=== PATIENT | female | born 1955 | race Caucasian/White ===

== ENCOUNTER 2019-04-22 18:47 | Observation (INO) | payer BC, SELFPAY ==
--- NOTE | ~2019-04-22 | CT_ITS ---
EXAMINATION: CT abdomen pelvis wo con DATE: 04/22/2019 19:54 INDICATION: Abdomen pain TECHNIQUE: Computed tomography (CT) of the abdomen and pelvis was performed without intravenous contr ast. The dose-length product was 523.43 mGy-cm. Automated exposure control and iterative reconstructi on technique were employed. COMPARISON: None. FINDINGS: Lung bases are unremarkable. Heart size normal. No significant pleural or pericardial effus ion. There is a 5 mm right UVJ stone with mild-moderate hydroureteronephrosis. There are small 2 mm n onobstructing right renal stones. There is a 3-4 mm nonobstructing left renal stone. There is a hypod ense 2 cm exophytic left renal mass, likely a cyst. There are gallstones. No biliary dilatation. The liver, spleen, pancreas, adrenal glands are unremark able. Nonobstructive bowel gas pattern. No abnormal pelvic masses or fluid collections. No evidence f or diverticulitis. There is grade 1-2 spondylolisthesis at L5-S1 secondary to facet hypertrophy. Ther e is disc narrowing at this level. There is a hemangioma at T12. IMPRESSION: 1. 5 mm partially obstructing right UVJ stone with mild-moderate hydroureteronephrosis. 2: Nonobstructing bilateral nephrolithiasis. 3: Cholelithiasis. Reviewed, dictated and finalized at location A. IMPRESSION: 1. 5 mm partially obstructing right UVJ stone with mild-moderate hydroureterone phrosis. 2: Nonobstructing bilateral nephrolithiasis. 3: Cholelithiasis.
--- NOTE | ~2019-04-22 | XR_ITS ---
Pain management procedure TECHNIQUE: Fluoroscopy used during ureteral stone extraction performed by [Ant Wan MD ] on 04/23/2019. Fluoroscopy time is 10.3 seconds with 4 fluoroscopic images captured. ] FINDINGS: Correlate with procedure note. IMPRESSION: Fluoroscopy used during ureteral stone extraction. Correlate with procedure note. Reviewed, dictated and finalized at location A. IMPRESSION: Fluoroscopy used during ureteral stone extraction. Correlate with p cecil note.
--- NOTE | 2019-04-22 18:55 | ED.ABDPAIN ---
HPI - Abdominal Pain General Chief Complaint: Urogenital-Female Stated Complaint: Abd Pain Time Seen by Provider: 04/22/19 18:50 Source: patient Mode of arrival: ambulatory Limitations: no limitations History of Present Illness HPI narrative: A 63 y/o female presents to the ED with c/o diffuse ABD pain. Pt states that the ABD pain started 2 days ago and has been constant since. She notes that the ABD pain is aggravated after she eats. Pt denies fever, N/V/D, and dysuria. She took Hydrocodone for the ABD pain with no relief. Pt has no other complaints at this time. MD elicited complaint: abdominal pain (Diffuse) Onset (ago): day(s) (2) Pain Consistency: constant Location: diffuse Exacerbating factors: eating Relieving factors: nothing Associated symptoms: denies other symptoms Treatments prior to arrival: other (Hydrocodone) Related Data Allergies Allergy/AdvReac Type Severity Reaction Status Date / Time aspirin Allergy Unknown Verified 08/21/10 15:26 carisoprodol Allergy Unknown Verified 08/21/10 15:26 levofloxacin Allergy Unknown Hallucinati Verified 10/22/17 08:48 ons Penicillins Allergy Unknown Verified 04/09/11 14:20 salicylates Allergy Unknown Verified 04/22/19 19:10 Review of Systems Review of Systems: All systems reviewed & are unremarkable except as noted in HPI and below Constitutional: Constitutional: Denies fever(s) Gastrointestinal: Gastrointestinal: Reports abdominal pain (Diffuse), Denies diarrhea, Denies nausea and Denies vomiting Genitourinary: Genitourinary: Denies dysuria [facility] Past Medical History Medical History (Updated 04/22/19 @ 21:15 by Diogo Hammond DO) Agoraphobia Bronchitis Chronic back pain DDD (degenerative disc disease) Depression HTN (hypertension) IBS (irritable bowel syndrome) Pleurisy Surgical History Surgical History (Updated 04/22/19 @ 18:57 by Geovanna Edwards) History of hysterectomy Family History Family History Mother Hypertension Carcinoma of colon Father Hypertension Carcinoma of colon Family history of diabetes mellitus in first degree relative Sibling Family history of malignant neoplasm of brain Other Family history of malignant neoplasm of male breast Social History Social History Smoking status: Never smoker Alcohol intake: never Gender identity (if verbalized by the patient): Female Exam Narrative: Exam Narrative: APPEARANCE: No acute distress, nontoxic, resting in bed HEENT: Normocephalic, atraumatic, OMM RESPIRATORY: No respiratory distress, clear to auscultation bilaterally with no rhonchi wheezing or rales CARDIOVASCULAR: RRR s murmur ABDOMINAL: Soft, nondistended, diffusely tender to palpation, no rebound or guarding MUSCULOSKELETAl: Moves all extremities. No clubbing, cyanosis or edema. NEURO: Awake and alert. Following commands, speech normal, no focal deficits SKIN:: Warm, dry. Normal Color PSYCHIATRIC: Normal affect/mood Course Course Emergency Course: Discussed with patient and family results of workup and diagnosis. Discussed need for admission. Patient and family understand and agree to current treatment plan. Patient states she does have a history of renal insufficiency is followed by Dr. bates go Consultations Consultation #1: Discussed case with urologist, Dr. Wan. They advise the patient be started on Rocephin and be admitted to the hospital. Date: 04/22/19 Time: 20:40 MDM - Abdominal Pain Lab Data Result diagrams: 04/22/19 19:26 04/22/19 19:26 Labs: Lab Results 04/22/19 04/22/19 04/22/19 Range/Units 19:26 19:26 19:26 WBC 9.9 (4.5-10.0) K/mm3 RBC 4.36 (4.2-5.4) M/mm3 Hgb 11.9 L (12.0-15.0) g/dL Hct 37.1 (37.0-47.0) % MCV 85.1 (80-100) fl MCH 27.3 (26-34) pg MCHC 32.1 (32-36) g/dl RDW 13.4 (11.5-14.5) % Plt Count 321 (15
[2019-04-22 19:35] LABS: Basophils Absolute Auto 0.1 K/mm3 (0.0-0.1); Basophils Percent Auto 0.5 % (0.2-1.2); Eosinophils Absolute Auto 0.3 K/mm3 (0-0.3); Eosinophils Percent Auto 2.6 % (0-4.4); Hematocrit 37.1 % (37.0-47.0); Hemoglobin 11.9 g/dL (12.0-15.0); Immature Granulocyte Absolute 0.03 K/mm3 (0.00-0.031); Immature Granulocyte Percent A 0.3 % (0-0.5); Lymphocytes Absolute Auto 2.55 K/mm3 (0.9-3.2); Lymphocytes Percent Auto 25.8 % (18.3-44.2); Mean Corpuscular HGB Conc 32.1 g/dl (32-36); Mean Corpuscular Hemoglobin 27.3 pg (26-34); Mean Corpuscular Volume 85.1 fl (80-100); Mean Platelet Volume 9.6 fl (7.4-10.4); Monocytes Absolute Auto 0.8 K/mm3 (0.1-0.6); Monocytes Percent Auto 7.6 % (2.6-8.5); Neutrophils Absolute Auto 6.3 K/mm3 (1.3-6.7); Neutrophils Percent Auto 63.2 % (45.5-73.1); Platelet Count Result 321 k/mm3 (150-375); Red Blood Count 4.36 M/mm3 (4.2-5.4); Red Cell Distribution Width 13.4 % (11.5-14.5); White Blood Count 9.9 K/mm3 (4.5-10.0)
[2019-04-22] MEDS: LACTATED RINGERS 1,000 ML 999 ML IV CONT (19:37)
[2019-04-22 19:40] LABS: Add Urine Microscopic? YES; Appearance Urine Cloudy (Clear); Bacteria Urine Trace /hpf; Bilirubin Urine Negative (Negative); Blood Urine 3+ (Negative); Color Urine Yellow (Yellow); Glucose Urine UA Negative (Negative); Ketones Urine Negative (Negative); Leukocyte Esterase Ur 1+ LEU/UL (Negative); Mucus Urine Few /lpf; Nitrate Urine Negative (Negative); Protein Urine Negative (Negative); RBC Urine >75 /hpf (0-2); Specific Grav Ur 1.017 (1.001-1.035); Squamous Epithelial Cell Urine Many /hpf (Few); Uric Acid Crystals Urine Present /hpf; Urobilinogen Urine Negative mg/dL (<2.0); WBC Urine 31-50 /hpf
[2019-04-22 19:44] LABS: INR 0.9; Partial Thromboplastin Time 29.6 SECONDS (22.3-36.8); Prothrombin Time 12.3 Seconds (11.1-14.7)
[2019-04-22 19:45] LABS: Alanine Aminotransferase 16 U/L (4-35); Alkaline Phosphatase 111 U/L (38-126); Aspartate Amino Transferase 25 U/L (14-36); Bilirubin,Total 0.6 mg/dL (0.2-1.3); Blood Urea Nitrogen 13 mg/dL (7-17); Calcium 9.3 mg/dL (8.4-10.2); Carbon Dioxide 27 mmol/L (22-30); Chloride 105 mmol/L (98-107); Estimated Glomerular Filt Rate 29; Glucose 96 mg/dL (65-105); Lipase 87 U/L (23-300); Potassium 4.1 mmol/L (3.4-5.0); Sodium 139 mmol/L (137-145)
[2019-04-22 21:36] VITALS: BP 125/65; PULSE 78; RESP 15; O2SAT 100
--- NOTE | 2019-04-22 21:38 | ADMGEN ---
This patient, Eladia Mock, was admitted to 3 [facility] Surg Room 324-01. Patient/family oriented to hospital policies and general routines including ID bracelet, bed and alarms, visiting hours, pain management, procedures, bathroom and other care routines, personal items, smoking policy, room service/diet, and visiting hours. Valuables list has been completed. Information on how to activate the Rapid Response Team has been discussed. Patient/Family are encouraged to report perceived risks to care and to ask questions if they do not understand what they are told or what they should do.
[2019-04-22 21:40] VITALS: BP 140/59; PULSE 74; RESP 18; TEMP 36.4; O2SAT 98; BMI 27.0
[2019-04-22] MEDS: SODIUM CHLORIDE 0.9% IV 1,000 ML 125 ML IV CONT (21:49)
[2019-04-23] VITALS (11 sets, daily range): BP systolic 116–153; BP diastolic 57–88; PULSE 59–82; RESP 10–17; TEMP 36.2–36.6; O2SAT 97–100
[2019-04-23] MEDS: MORPHINE SULFATE 4 MG/ML INJ IV PUSH ×2 (04:43→08:18)
[2019-04-23] MEDS: SODIUM CHLORIDE 0.9% IV 1,000 ML 125 ML IV CONT (05:50)
[2019-04-23 06:41] LABS: Basophils Percent Auto 0.4 % (0.2-1.2); Eosinophils Absolute Auto 0.3 K/mm3 (0-0.3); Eosinophils Percent Auto 3.9 % (0-4.4); Hematocrit 34.2 % (37.0-47.0); Hemoglobin 11.1 g/dL (12.0-15.0); Immature Granulocyte Absolute 0.02 K/mm3 (0.00-0.031); Immature Granulocyte Percent A 0.3 % (0-0.5); Lymphocytes Absolute Auto 2.48 K/mm3 (0.9-3.2); Mean Corpuscular HGB Conc 32.5 g/dl (32-36); Mean Corpuscular Hemoglobin 27.5 pg (26-34); Mean Corpuscular Volume 84.9 fl (80-100); Mean Platelet Volume 9.6 fl (7.4-10.4); Monocytes Absolute Auto 0.5 K/mm3 (0.1-0.6); Monocytes Percent Auto 7.2 % (2.6-8.5); Neutrophils Absolute Auto 4.2 K/mm3 (1.3-6.7); Neutrophils Percent Auto 55.2 % (45.5-73.1); Platelet Count Result 293 k/mm3 (150-375); Red Blood Count 4.03 M/mm3 (4.2-5.4); Red Cell Distribution Width 13.2 % (11.5-14.5); White Blood Count 7.5 K/mm3 (4.5-10.0)
[2019-04-23 07:00] LABS: Blood Urea Nitrogen 11 mg/dL (7-17); Calcium 8.7 mg/dL (8.4-10.2); Carbon Dioxide 26 mmol/L (22-30); Chloride 108 mmol/L (98-107); Estimated CRCL calculation 46 ml/min; Estimated Glomerular Filt Rate 50; Glucose 93 mg/dL (65-105); Potassium 3.6 mmol/L (3.4-5.0); Sodium 138 mmol/L (137-145)
--- NOTE | 2019-04-23 07:17 | PM.IMHP ---
H&P: HPI History of Present Illness Chief complaint: RIGHT KIDNEY STONE,HYDRONEPHROSIS,UTI,RENAL Narrative: Eladia Mock is a 63 year old female without history of prior urolithiasis or other urological issues. Presents to ER with 3-day history of lower abdominal discomfort without n/v, fever//chills or gross hematuria. Review of Systems Constitutional: Constitutional: Denies chills, Denies fatigue, Denies fever(s) and Denies headache(s) Eyes: Eyes: Denies blurry vision ENT: Denies vertigo, Denies dizziness, Denies headache(s) and Denies sore throat Cardiovascular: Cardiovascular: Denies chest pain, Denies syncope, Denies lightheadedness, Denies palpitations, Denies dyspnea and Denies dyspnea on exertion Respiratory: Respiratory: Denies hemoptysis, Denies dyspnea and Denies dyspnea on exertion Gastrointestinal: Gastrointestinal: Denies melena, Denies bloating, Denies hematochezia, Denies change in bowel habits, Denies change in stool character, Denies constipation, Denies diarrhea and Denies vomiting Genitourinary: Genitourinary: Denies hematuria, Denies urinary frequency, Denies dysuria, Denies urinary hesitancy and Denies urinary urgency Integumentary/Breasts: Skin/Breast: Denies pruritus, Denies lesions and Denies rash Neurologic: Denies confusion, Denies vertigo, Denies dizziness, Denies syncope and Denies headache(s) Psychiatric: Psychiatric: Denies anxiety, Denies change in appetite and Denies confusion Endocrine: Endocrine: Denies fatigue and Denies palpitations PMFSH Past Medical History Medical History Agoraphobia Bronchitis Chronic back pain DDD (degenerative disc disease) Depression HTN (hypertension) IBS (irritable bowel syndrome) Pleurisy Surgical History Surgical History History of hysterectomy Family History Family History Mother Hypertension Carcinoma of colon Father Hypertension Carcinoma of colon Family history of diabetes mellitus in first degree relative Sibling Family history of malignant neoplasm of brain Other Family history of malignant neoplasm of male breast Social History Social History Smoking status: Never smoker Alcohol intake: never Substance use: never Substance use type: does not use Gender identity (if verbalized by the patient): Female Spiritual care concerns: Yes (denominational) Agree to blood products: Yes Meds Home Medications and Allergies Home Medications Medication Instructions Recorded Confirmed Type amlodipine 5 mg tablet 5 mg PO DAILY #30 tablet 01/11/19 04/22/19 Rx carvedilol 25 mg tablet 25 mg PO Q12H #60 tablet 01/11/19 04/22/19 Rx losartan 50 mg tablet 50 mg PO DAILY #30 tablet 01/11/19 04/22/19 Rx naproxen 500 mg tablet 500 mg PO BID #60 tablet 01/11/19 04/22/19 Rx cyclobenzaprine 10 mg tablet 10 mg PO TID #90 tablet 04/15/19 04/22/19 Rx acetaminophen [Tylenol] 325 mg PO Q4-6H PRN 04/22/19 04/23/19 History gabapentin 300 mg BID 04/22/19 04/22/19 History hydrocodone-acetaminophen 1 tablet PO Q4H PRN 04/22/19 04/22/19 History hydroxyzine HCl 25 mg PO TID 04/22/19 04/22/19 History Allergies Allergy/AdvReac Type Severity Reaction Status Date / Time aspirin Allergy Unknown Unknown Verified 04/22/19 21:24 carisoprodol Allergy Unknown Unknown Verified 04/22/19 21:24 levofloxacin Allergy Unknown Hallucinati Verified 10/22/17 08:48 ons Penicillins Allergy Unknown Unknown Verified 04/22/19 21:24 salicylates Allergy Unknown Unknown Verified 04/22/19 21:24 Vital Signs Vital Signs - 24 hr 04/22/19 21:36 04/22/19 21:40 Temperature 97.6 F Pulse Rate 78 74 Respiratory Rate 15 18 Blood Pressure 125/65 140/59 L Pulse Oximetry 100 98 Exam Const: General: healthy appearing, comfortable, no acute di
--- NOTE | 2019-04-23 11:50 | PC.NURSE ---
to OR per stretcher. iv saline locked.
[2019-04-23] MEDS: LACTATED RINGERS 1,000 ML 30 ML IV CONT (11:55)
--- NOTE | 2019-04-23 12:35 | WPDANESEPPF ---
Anes - Initial Pre Proc Eval Procedure: Operation Date: 04/23/19 15:45 Proposed Procedures p CYSTOSCOPY,RIGHT URETEROSCOPY,STONE EXTRACTION - Ant Wan MD Date/Time: 04/23/19 12:35 Surgeon: Vee Davis DO Pre Op Diagnosis: RIGHT KIDNEY STONE,HYDRONEPHROSIS,UTI,RENAL Patient Data Age: 63 Gender: F Height: 5 ft 7 in Weight: 78.2 kg Last Vital Signs Temp 36.5 C 04/23/19 12:00 Pulse 70 04/23/19 12:00 Resp 16 04/23/19 12:00 BP 150/59 H 04/23/19 12:00 Pulse Ox 99 04/23/19 12:00 Allergies Allergy/AdvReac Type Severity Reaction Status Date / Time aspirin Allergy Unknown Unknown Verified 04/22/19 21:24 carisoprodol Allergy Unknown Unknown Verified 04/22/19 21:24 levofloxacin Allergy Unknown Hallucinati Verified 10/22/17 08:48 ons Penicillins Allergy Unknown Unknown Verified 04/22/19 21:24 salicylates Allergy Unknown Unknown Verified 04/22/19 21:24 Home Medications Medication Instructions Recorded Confirmed Type amlodipine 5 mg tablet 5 mg PO DAILY #30 tablet 01/11/19 04/22/19 Rx carvedilol 25 mg tablet 25 mg PO Q12H #60 tablet 01/11/19 04/22/19 Rx losartan 50 mg tablet 50 mg PO DAILY #30 tablet 01/11/19 04/22/19 Rx naproxen 500 mg tablet 500 mg PO BID #60 tablet 01/11/19 04/22/19 Rx cyclobenzaprine 10 mg tablet 10 mg PO TID #90 tablet 04/15/19 04/22/19 Rx acetaminophen [Tylenol] 325 mg PO Q4-6H PRN 04/22/19 04/23/19 History gabapentin 300 mg BID 04/22/19 04/22/19 History hydrocodone-acetaminophen 1 tablet PO Q4H PRN 04/22/19 04/22/19 History hydroxyzine HCl 25 mg PO TID 04/22/19 04/22/19 History Laboratory Tests 04/22/19 04/22/19 04/22/19 19:26 19:26 19:26 WBC 9.9 K/mm3 K/mm3 (4.5-10.0) RBC 4.36 M/mm3 M/mm3 (4.2-5.4) Hgb 11.9 g/dL L g/dL (12.0-15.0) Hct 37.1 % % (37.0-47.0) MCV 85.1 fl fl (80-100) MCH 27.3 pg pg (26-34) MCHC 32.1 g/dl g/dl (32-36) RDW 13.4 % % (11.5-14.5) Plt Count 321 k/mm3 k/mm3 (150-375) MPV 9.6 fl fl (7.4-10.4) Immature Gran % (Auto) 0.3 % % (0-0.5) Neut % (Auto) 63.2 % % (45.5-73.1) Lymph % (Auto) 25.8 % % (18.3-44.2) [place] % (Auto) 7.6 % % (2.6-8.5) Eos % (Auto) 2.6 % % (0-4.4) Baso % (Auto) 0.5 % % (0.2-1.2) Lymph # (Auto) 2.55 K/mm3 K/mm3 (0.9-3.2) [place] # (Auto) 0.8 K/mm3 H K/mm3 (0.1-0.6) Eos # (Auto) 0.3 K/mm3 K/mm3 (0-0.3) Baso # (Auto) 0.1 K/mm3 K/mm3 (0.0-0.1) Abs Immat Gran (auto) 0.03 K/mm3 K/mm3 (0.00-0.031) Absolute Neuts (auto) 6.3 K/mm3 K/mm3 (1.3-6.7) Absolute Nucleated RBC 0.0 K/mm3 K/mm3 (0.0-0.012) Nucleated RBC % 0.0 % % (0.0-0.2) PT 12.3 Seconds Seconds (11.1-14.7) INR 0.9 APTT 29.6 SECONDS SECONDS (22.3-36.8) Sodium 139 mmol/L mmol/L (137-145) Potassium 4.1 mmol/L mmol/L (3.4-5.0) Chloride 105 mmol/L mmol/L (98-107) Carbon Dioxide 27 mmol/L mmol/L (22-30) BUN 13 mg/dL mg/dL (7-17) Creatinine 1.80 mg/dL H mg/dL (0.7-1.0) Estim Creat Clear Calc Not Reportable Estimated GFR 29 L (59 - ) Glucose 96 mg/dL mg/dL (65-105) Calcium 9.3 mg/dL mg/dL (8.4-10.2) Total Bilirubin 0.6 mg/dL mg/dL (0.2-1.3) AST 25 U/L U/L (14-36) ALT 16 U/L U/L (4-35) Alkaline Phosphatase 111 U/L U/L (38-126) Total Protein 7.0 g/dL g/dL (6.3-8.2) Albumin 4.0 g/dL g/dL (3.5-5.1) Lipase 87 U/L U/L (23-300) Urine Color Urine Appearance Urine pH Ur Specific [place] Urine Protein Urine Glucose (UA) Urine Ketones Ur Blood (Man) Urine Nitrate
[2019-04-23] MEDS: KETOROLAC 30 MG/ML VIAL (*BKC) IV PUSH (13:03)
--- NOTE | 2019-04-23 13:04 | PM.PROC ---
Procedure Note - Detailed Date of procedure: 04/23/19 Pre-op diagnosis: RIGHT KIDNEY STONE,HYDRONEPHROSIS,UTI,RENAL Post-op diagnosis: same Procedure performed: 1. Cystoscopy, right ureteroscopy with stone extraction. Description of procedure: The patient was brought to the operative suite where she is prepped and draped in a routine sterile fashion while in the dorsal lithotomy position after the uneventful induction of a general LMA anesthetic. A 19F rigid cystoscope was placed in the bladder. The patient had no evidence of urethral stricture or bladder neck contracture. The bladder mucosa was endoscopically normal without hyperemia or neoplasm. There was a single, orthotopic ureteral orifice bilaterally. A 0.035 glidewire was advanced into the right renal pelvis under fluoroscopy. The distal ureter was dilated with an 8F/10F ureteral dilator. Ureteroscopy was undertaken with a short, tapered, semi-rigid ureteroscope and the stone was extracted with ease using a 1.9F Escape disposable stone basket. Due to the ease of this manipulation I opted not to place a ureteral stent. The patient's bladder was emptied and was taken to the recovery room having tolerated this procedure well. Anesthesia: GLMA Surgeon: Ant Wan MD Estimated blood loss (mL): 0 Drains: No Packing: No Pathology: yes (Right ureteral stone) Complications: No immediate complications Condition: stable Disposition: PACU
--- NOTE | 2019-04-23 13:11 | PM.DS ---
DS: Diagnosis Admitting Diagnosis Admitting Diagnosis: Calculus of ureter DS: Summary Time Spent with Patient Time attestation: Total time spent providing and/or coordinating discharge services: 20min. Discharge diagnosis: Right ureteral stone Hospital coure: Patient was admitted to the ER on a Saturday evening with a 3 day history of right lower quadrant and pelvic discomfort. Axial imaging demonstrated a 5 mm obstructing ureteral calculus. She was admitted overnight for hydration and analgesics. Following morning she continued to have discomfort prompting decision for endoscopic intervention. Ureteroscopy revealed a 5 mm distal ureteral stone which was extracted with ease. I opted not to leave a ureteral stent. Following the procedure she was comfortable and tolerating a diet. She will be discharged with plans to follow-up in 2-3 weeks. Exam Const: General: no acute distress GI: Inspection: non-distended GI Palp: No abdominal tenderness and No Guarding due to palpation present (GI) Auscultation: normal bowel sounds DS: Data Data Completed and Pending Pending studies at discharge: Pending at discharge 04/23/19 13:00 Surgical [PTH] Routine Labs on day of discharge: Labs from last 24 hours 04/23/19 04/23/19 04/22/19 06:15 06:15 19:28 WBC 7.5 RBC 4.03 L Hgb 11.1 L Hct 34.2 L MCV 84.9 MCH 27.5 MCHC 32.5 RDW 13.2 Plt Count 293 MPV 9.6 Immature Gran % (Auto) 0.3 Neut % (Auto) 55.2 Lymph % (Auto) 33.0 [place] % (Auto) 7.2 Eos % (Auto) 3.9 Baso % (Auto) 0.4 Lymph # (Auto) 2.48 [place] # (Auto) 0.5 Eos # (Auto) 0.3 Baso # (Auto) 0.0 Abs Immat Gran (auto) 0.02 Absolute Neuts (auto) 4.2 Absolute Nucleated RBC 0.0 Nucleated RBC % 0.0 PT INR APTT Sodium 138 Potassium 3.6 Chloride 108 H Carbon Dioxide 26 BUN 11 Creatinine 1.10 H Estim Creat Clear Calc 46 Estimated GFR 50 L Glucose 93 Calcium 8.7 Total Bilirubin AST ALT Alkaline Phosphatase Total Protein Albumin Lipase Urine Color Yellow Urine Appearance Cloudy H Urine pH 6.0 Ur Specific [place] 1.017 Urine Protein Negative Urine Glucose (UA) Negative Urine Ketones Negative Ur Blood (Man) 3+ H Urine Nitrate Negative Urine Bilirubin Negative Urine Urobilinogen Negative Leukocyte Esterase Rfl 1+ H Urine RBC >75 H Urine WBC 31-50 H Ur Squamous Epith Cells Many H Uric Acid Crystals Present H Urine Bacteria Trace Urine Mucus Few H 04/22/19 04/22/19 04/22/19 19:26 19:26 19:26 WBC 9.9 RBC 4.36 Hgb 11.9 L Hct 37.1 MCV 85.1 MCH 27.3 MCHC 32.1 RDW 13.4 Plt Count 321 MPV 9.6 Immature Gran % (Auto) 0.3 Neut % (Auto) 63.2 Lymph % (Auto) 25.8 [place] % (Auto) 7.6 Eos % (Auto) 2.6 Baso % (Auto) 0.5 Lymph # (Auto) 2.55 [place] # (Auto) 0.8 H Eos # (Auto) 0.3 Baso # (Auto) 0.1 Abs Immat Gran (auto) 0.03 Absolute Neuts (auto) 6.3 Absolute Nucleated RBC 0.0 Nucleated RBC % 0.0 PT 12.3 INR 0.9 APTT 29.6 Sodium 139 Potassium 4.1 Chloride 105 Carbon Dioxide 27 BUN 13 Creatinine 1.80 H Estim Creat Clear Calc Not Reportable Estimated GFR 29 L Glucose 96 Calcium 9.3 Total Bilirubin 0.6 AST 25 ALT 16 Alkaline Phosphatase 111 Total Protein 7.0 Albumin 4.0 Lipase 87 Urine Color Urine Appearance Urine pH Ur Specific [place] Urine Protein Urine Glucose (UA) Urine Ketones Ur Blood (Man) Urine Nitrate Urine Bilirubin Urine Urobilinogen Leukocyte Esterase Rfl Urine RBC Urine WBC Ur Squamous Epith Cells Uric Acid Crystals Urine Bacteria Urine Mucus Discharge Plan Discharge Attending physician on discharge: Ant Wan Consulting providers: Jimmy Wan
--- NOTE | 2019-04-23 15:22 | PC.NURSE ---
patient returned to room from OR.
== END 2019-04-23 16:54 | disposition home or self-care (01) ==
LOC: ANHED 20:44 → ANH3MEDSUR 21:15
PROVIDERS: Admitting Provider Urology; Emergency Provider Emergency Medicine; PCP Family Medicine; Visit Provider Urology
PROC: (CPT 52352; principal; 2019-04-23 15:45)
DX: N13.6 Pyonephrosis (principal); I10 Essential (primary) hypertension; N28.9 Disorder of kidney and ureter, unspecified; Z79.899 Other long term (current) drug therapy; Z88.0 Allergy status to penicillin; Z88.3 Allergy status to other anti-infective agents; Z88.8 Allergy status to other drugs, medicaments and biological substances
CPT/HCPCS: 52352; 36415; 74176; 80048; 80053; 81001; 82365; 83690; 85025; 85610; 85730; 87086; 87088; 88300; 96361; 96365; 96375; 96376; 99285; A9270; C1769; G0378; J0696; J1100; J1885; J2270; J2405; J2704; J3010; J7030; J7120

== ENCOUNTER 2019-08-21 11:06 | Outpatient (CLI) | payer BC, SELFPAY ==
--- NOTE | ~2019-08-21 | XR_ITS ---
EXAMINATION: XR abdomen/kub 1V DATE: 08/21/2019 11:26 INDICATION: Calculus of kidney. TECHNIQUE: A supine view of the abdomen on 2 radiographs was obtained. COMPARISON: CT abdomen and pelvis 08/21/2019 FINDINGS: There are no dilated loops of bowel. There are gallstones in the gallbladder. There is a 4 mm stone in right kidney lower pole. There are phleboliths in the pelvis. IMPRESSION: 1. 4 mm right kidney stone. Reviewed, dictated and finalized at location A. IMPRESSION: 1. 4 mm right kidney stone.
--- NOTE | ~2019-08-21 | CT_ITS ---
EXAMINATION: CT abdomen pelvis wo con DATE: 08/21/2019 11:18 INDICATION: Left flank pain. TECHNIQUE: Computed tomography (CT) of the abdomen and pelvis was performed without intravenous contr ast. Automated exposure control and iterative reconstruction technique were employed. The dose-length product was 254.89 mGy-cm. COMPARISON: CT abdomen and pelvis 04/22/2019, ultrasound kidneys 10/24/2017 FINDINGS: The visualized portions of the lung bases demonstrate mild atelectasis. No pleural effusion . The heart size is normal. No pericardial effusion. The liver and spleen are normal. There are galls tones in the gallbladder, which is normal in size. The pancreas and adrenal glands are normal. There are 5 stones in right kidney measuring up to 3 mm. There is a 3 mm stone in distal right ureter. Ther e is an 8 mm cyst in left kidney. There is a 2.0 cm mass in left kidney measuring soft tissue attenua tion. There is mild left hydronephrosis and proximal hydroureter. There is a 4 mm stone in proximal l eft ureter. There are no dilated loops of bowel. There is diverticulosis of the colon without evidenc e of diverticulitis. The appendix is not visualized. There are no pathologically enlarged lymph nodes . There is trace pelvic ascites. There is severe lower lumbar spondylosis. There is a hemangioma in T 12. IMPRESSION: 1. 4 mm stone in proximal left ureter with mild left hydronephrosis and proximal hydroureter. 2. 3 mm stone in distal right ureter. No right-sided hydronephrosis. 3. Nonobstructing right kidney stones. 4. 2.0 cm left kidney mass measuring soft tissue attenuation, stable from 04/22/2019 and not visualize d on 10/24/2017. This finding may be a hemorrhagic cyst or less likely a solid neoplasm. Abdomen CT wi thout and with contrast is recommended. Reviewed, dictated and finalized at location A. IMPRESSION: 1. 4 mm stone in proximal left ureter with mild left hydronephrosis and proxima l hydroureter. 2. 3 mm stone in distal right ureter. No right-sided hydronephrosis. 3. Nonobstructing right kidney stones. 4. 2.0 cm left kidney mass measuring soft tissue attenuation, stable from 2019 and not visualized on 10/24/2017. This finding may be a hemorrhagic cyst or less likely a solid neoplasm. Abdomen CT without and with contrast is recommen ded.
== END 2019-08-21 11:07 | disposition home or self-care (01) ==
PROVIDERS: PCP Family Medicine; Visit Provider Nurse Practitioner Family
DX: N20.2 Calculus of kidney with calculus of ureter (principal)
CPT/HCPCS: 74018; 74176

== ENCOUNTER 2019-09-01 15:21 | Outpatient (CLI) | payer BC, SELFPAY ==
--- NOTE | ~2019-09-01 | XR_ITS ---
XR abdomen/kub 1V DATE: 09/01/2019 15:43 INDICATION: Left renal mass TECHNIQUE: AP projection, 2 views COMPARISON: 08/21/2019 KUB 08/21/[address] abdomen pelvis FINDINGS: There are 2 approximately 12 mm calcified gallstones. There is a possible several millimeter faintly calcified ureteral calculus at the L5 level, superimpo sing the L5 transverse process. Consider correlation with noncontrast CT abdomen pelvis to confirm. The psoas shadows are intact. No visceromegaly is evident. The bowel gas pattern is unremarkable, wit hout evidence of obstruction. IMPRESSION: Possible faintly calcified 7 mm left ureteral calculus at L5 level Cholelithiasis Reviewed, dictated and finalized at Location A. Reviewed, dictated and finalized at location B.
--- NOTE | ~2019-09-01 | CT_ITS ---
EXAMINATION: CT abdomen pelvis wo/w con DATE: 09/01/2019 16:02 INDICATION: Left renal mass TECHNIQUE: Computed tomography (CT) of the abdomen and pelvis was performed without and subsequently with 100 cc Omnipaque 350 intravenous contrast. Automated exposure control and iterative reconstructi on technique were employed. Exam dose: 731.55 mGy-cm total exam DLP. COMPARISON: 09/01/2019 KUB 08/21/2019 CT abdomen pelvis 04/22/2019 CT abdomen pelvis 10/24/2017 ultrasound of the kidneys FINDINGS: Normal heart size. No pericardial or pleural effusion. There is mild discoid atelectasis or scarring in the medial segment of the middle lobe. There are 2 approximately 12 mm stones in the dependent aspect of the gallbladder. No gallbladder wal l thickening or pericholecystic fluid or stranding. No hepatic space-occupying mass lesion or bile duct dilatation. No pancreatic mass lesion, calcificat ion or pancreatic duct dilatation. Normal splenic size. There are 5 nonobstructing right renal stones, measuring up to slightly greater than 3 mm approximate maximal dimension. A 4 mm calculus is confirmed in the left ureter at the L5 level, as suggested on the 09/01/2019 KUB. T here is proximal mild left hydroureteronephrosis. No other left renal, left or right ureteral calculus or urinary bladder calculus is evident. There are several left renal cysts including an exophytic approximately 1.8 cm cyst and several 10 mm or smaller left renal cyst. There is mild atherosclerotic calcification of the abdominal aorta. No a bdominal aortic aneurysm or dissection is evident. No intraperitoneal or retroperitoneal or pelvic ma ss lesion or adenopathy or ascites. Status post hysterectomy. The urinary bladder is unremarkable. Normal appendix. No bowel obstruction or intraperitoneal free air. There is grade 2 anterolisthesis at L5-S1 with evidence of healed bilateral L5 pars interarticularis defects. There is moderate degenerative disc disease including vacuum phenomenon at L5-S1. Diffuse osteopenia. Hemangioma of T12. Degenerative spurring of the lower thoracic spine. IMPRESSION: 4 mm left ureteral calculus at L5 level with moderate proximal hydroureteronephrosis Nonobstructive right nephrolithiasis Left renal cysts including approximately 1.8 cm exophytic cyst Cholelithiasis Reviewed, dictated and finalized at [facility]. Reviewed, dictated and finalized at location B. IMPRESSION: 4 mm left ureteral calculus at L5 level with moderate proximal hyd roureteronephrosis Nonobstructive right nephrolithiasis Left renal cysts including approximately 1.8 cm exophytic cyst Cholelithiasis
[2019-09-01 15:51] LABS: Estimated Glomerular Filt Rate 42
== END 2019-09-01 15:22 | disposition home or self-care (01) ==
PROVIDERS: PCP Family Medicine; Visit Provider Nurse Practitioner Adult Health
DX: N28.1 Cyst of kidney, acquired (principal); K80.20 Calculus of gallbladder without cholecystitis without obstruction; N20.2 Calculus of kidney with calculus of ureter
CPT/HCPCS: 36415; 74018; 74178; Q9967

== ENCOUNTER 2019-09-03 00:45 | Outpatient (CLI) | payer BC, SELFPAY ==
[2019-09-03 20:09] LABS: SARS-CoV-2 RNA PCR Negative
== END 2019-09-03 00:46 | disposition home or self-care (01) ==
LOC: ANHCOVIDDT 00:45
PROVIDERS: PCP Family Medicine; Visit Provider Urology
DX: Z01.812 Encounter for preprocedural laboratory examination (principal); Z11.59 Encounter for screening for other viral diseases; I10 Essential (primary) hypertension
CPT/HCPCS: 87635; C9803; U0003

== ENCOUNTER 2019-09-04 02:02 | Day surgery (SDC) | payer BC, SELFPAY ==
[2019-09-02 16:25] VITALS: BMI 26.4
[2019-09-04] VITALS (8 sets, daily range): BP systolic 109–148; BP diastolic 57–80; PULSE 61–75; RESP 9–12; TEMP 36–36.6; O2SAT 94–100
--- NOTE | ~2019-09-04 | XR_ITS ---
EXAMINATION: XR abdomen/kub 1V DATE: 09/04/2019 07:27 INDICATION: Left ureteral stone. TECHNIQUE: A supine view of the abdomen on 2 radiographs was obtained. COMPARISON: CT abdomen and pelvis 09/01/2019 FINDINGS: There are no dilated loops of bowel. There are gallstones in the gallbladder. There are phl eboliths in the pelvis. There is a 4 mm stone in proximal left ureter overlying the left L5 transvers e process. There are 3 stones in right kidney measuring up to 4 mm. IMPRESSION: 1. 4 mm stone in proximal left ureter. 2. Right kidney stones. 3. Cholelithiasis. Reviewed, dictated and finalized at location A.
--- NOTE | 2019-09-04 06:15 | ECG_ITS ---
Measurements Intervals [place] Rate: 65 P: 51 NM: 185 QRS: -5 QRSD: 90 T: 13 QT: 381 QTc: 398 Interpretive Statements SINUS RHYTHM VOLTAGE CRITERIA FOR LVH BASELINE ARTIFACT- I, II, AVR, AVF BORDERLINE ECG Electronically Signed On 09-04-2019 8:24:33 CDT by Misael Torrez D.O.
--- NOTE | 2019-09-04 07:42 | WPDHPUPDATE1 ---
History and Physical Update Update Date/Time: 09/04/19 07:42 History and Physical has been reviewed, including an updated exam of the patient. There are NO changes in the patient's condition. Risks, benefits, and alternatives have been discussed and questions answered. Patient agrees to proceed with procedure.
[2019-09-04] MEDS: LACTATED RINGERS 1,000 ML 30 ML IV CONT ×2 (07:53→09:57)
[2019-09-04 08:15] LABS: Prothrombin Time 12.6 Seconds (11.1-14.7)
[2019-09-04 08:16] LABS: Partial Thromboplastin Time 29.7 SECONDS (22.3-36.8)
--- NOTE | 2019-09-04 08:30 | WPDANESEPPF ---
Anes - Initial Pre Proc Eval Procedure: Operation Date: 09/04/19 09:30 Proposed Procedures p Left Ureteral Extracorporeal Shock Wave Lithotripsy - Carl Parnell MD s Possible Cystoscopy, Possible Left Ureteroscopy, Possible Left Retrograde Pyelogram, Possible Left Stone Extraction, Possible Left Stent Placement - Carl Parnell MD s Possible Holmium Laser Procedure - Carl Parnell MD Date/Time: 09/04/19 08:30 Surgeon: Carl Parnell MD Pre Op Diagnosis: Left Ureteral Stone Patient Data Age: 63 Gender: F Height: 1.7 m Weight: 76.66 kg Last Vital Signs Temp 36.0 C L 09/04/19 08:03 Pulse 70 09/04/19 08:03 BP 141/74 H 09/04/19 08:03 Pulse Ox 100 09/04/19 08:03 Allergies Allergy/AdvReac Type Severity Reaction Status Date / Time aspirin Allergy Unknown ITCHING, Verified 09/02/19 16:29 GI UPSET levofloxacin Allergy Unknown Hallucinati Verified 09/02/19 16:29 ons Penicillins Allergy Unknown Unknown- Verified 09/02/19 16:29 CHILD salicylates Allergy Unknown GI UPSET Verified 09/02/19 16:29 carisoprodol AdvReac Unknown Gastrointestinal Verified 09/02/19 16:29 Upset Home Medications Medication Instructions Recorded Confirmed Type acetaminophen [Tylenol] 325 mg PO Q4-6H PRN 04/22/19 09/02/19 History gabapentin 300 mg BID 04/22/19 09/02/19 History amlodipine 5 mg tablet 5 mg PO DAILY #30 tablet 05/14/19 09/04/19 Rx carvedilol 25 mg tablet 25 mg PO Q12H #60 tablet 05/14/19 09/04/19 Rx naproxen 500 mg tablet 500 mg PO BID #60 tablet 05/14/19 09/02/19 Rx losartan 50 mg tablet 50 mg PO DAILY #30 tablet 06/15/19 09/02/19 Rx cyclobenzaprine 10 mg tablet 10 mg PO TID #90 tablet 07/17/19 09/02/19 Rx hydrocodone 5 mg-acetaminophen 325 1 tablet PO Q6-8H PRN #90 tablet 08/18/19 09/04/19 Rx mg tablet hydroxyzine HCl 25 mg tablet 25 mg PO TID #90 tablet 08/18/19 09/04/19 Rx tamsulosin 0.4 mg capsule 0.4 mg PO DAILY #20 cap 08/21/19 09/02/19 Rx Laboratory Tests 09/04/19 07:58 PT 12.6 Seconds Seconds (11.1-14.7) INR 1.0 APTT 29.7 SECONDS SECONDS (22.3-36.8) Patient hx anesthesia problems: none Family hx anesthesia problems: none [facility] Social History Social History Smoking status: Never smoker Alcohol intake: never Substance use: never Substance use type: does not use Gender identity (if verbalized by the patient): Female Spiritual care concerns: No Agree to blood products: Yes Anes - Eval Final PreProcedure Day of Procedure 09/04/19 08:30 Patient weight: overweight Heart: regular rate and rhythm Lungs: clear to auscultation and normal air movement Airway: Mallampati scale class II Neurological: alert and oriented Last oral intake: >/= 8 hours ASA classification: III Emergent: no Anesthetic plan: proceed Anesthesia type and monitoring: general LMA Informed Consent: The patient's anesthetic plan and its attendant risks and benefits were discussed with the patient/family/POA. Questions were solicited and answers provided to the satisfaction of the patient/family/POA.
--- NOTE | 2019-09-04 08:34 | SUR.PREOP ---
0800- DR. UP OK'ED ANCEF 2G FOR ANTIBOTIC CHOICE.
[2019-09-04] MEDS: ceFAZolin 2 GM/D5W 50 ML 2 GM/50 ML BAG IVPB (08:35)
[2019-09-04] MEDS: LIDOCAINE HCL 2% GEL UROJET 10 ML PKG MUCOUS MEM (09:13)
--- NOTE | 2019-09-04 09:59 | P.OP_ITS ---
Procedure Note - Detailed Date of procedure: 09/04/19 Pre-op diagnosis: Left Ureteral Stone Post-op diagnosis: same Procedure performed: Cystoscopy, left retrograde pyelogram, left ureteral stent placement 4.8 Barbadian contour, ESWL left ureteral calculus Description of procedure: patient was taken to the operative suite and correctly identified. Once general anesthesia was obtained we were unable to adequately localized the stone which was distal near the iliac crest area. At this point time we decided to place the patient a frog-leg position and prepped and draped in usual sterile fashion. Sixteen Barbadian flexible scope was inserted into the bladder. The left ureteral orifice was cannulated with a guidewire. It met some mild resistance at the iliac crest area. This was the location of the presumed stone on KUB preoperatively. We then placed a [place] and a slight pyelogram. We used this to give 1500 shocks to this area. At this point we decided to possibly look into the ureter to see if we could definitively see the stone. We used an 810 dilator but were unsuccessful in passing the ureteral scope into the orifice which was tight. At this point time simply placed a 4.8 Barbadian contour stent with the proximal end coiled in the renal pelvis distal in the bladder. We finished out the other 1500 shocks over the stent at the location of the stone on KUB. 2% viscous lidocaine was inserted in patient's urethra she taken recovery in stable condition. She will be instructed to strain her urine. I will recommend a renal CT KUB in approximately 7-10 days for definitive evaluation of the location of any stone fragments. Anesthesia: GLMA Surgeon: Carl Parnell MD Drains: Yes Packing: No Pathology: none sent Complications: No immediate complications Condition: stable Disposition: PACU
== END 2019-09-04 12:15 | disposition home or self-care (01) ==
PROVIDERS: PCP Family Medicine; Visit Provider Urology
PROC: (CPT 50590; principal; 2019-09-04 09:30)
DX: N20.1 Calculus of ureter (principal)
CPT/HCPCS: 50590; 36415; 74018; 85610; 85730; 93005; A9270; C1758; C1769; C2617; J0690; J1100; J2250; J2405; J2704; J3010; J7120; Q9966

== ENCOUNTER 2019-09-12 12:45 | Inpatient (IN) | payer BC, SELFPAY ==
[2019-09-12] VITALS (9 sets, daily range): BP systolic 115–152; BP diastolic 64–100; PULSE 56–75; RESP 15–19; TEMP 36.1–36.8; O2SAT 96–100; BMI 27.3
--- NOTE | ~2019-09-12 | MR_ITS ---
EXAMINATION: MR brain/brain stem wo con DATE: 09/19/2019 11:24 INDICATION: Vision changes. Dizziness. TECHNIQUE: Magnetic resonance imaging (MRI) of the brain and brainstem was performed without intraven ous contrast. Sequences included sagittal and axial T1-weighted SE, axial diffusion-weighted FS SE, a xial T2*-weighted GRE, axial T2-weighted FLAIR, and axial T2-weighted FSE. Apparent diffusion coeffic ient (ADC) maps were created. COMPARISON: None. FINDINGS: There are no areas of restricted diffusion to suggest acute infarction. No intracranial hemorrhage. S mall T1 hyperintense lipoma along the falx. No other abnormal intracranial mass lesion. There are sca ttered areas of nonspecific increased T2-weighted signal intensity in the cerebral white matter, pred ominantly involving the deep and periventricular white matter which is within normal limits for age. There are no intraparenchymal signal abnormalities seen on the other pulse sequences. The ventricles are symmetric and normal in size. There are no abnormal extra-axial fluid collections. Flow voids are seen in the cerebral arteries on the T2-weighted sequences consistent with their expected patency. M ild mucosal thickening in bilateral ethmoid sinuses with opacification of a posterior left ethmoid ai r cell. Visualized orbits and soft tissues are unremarkable. Moderate cervical spondylosis with 2 mm anterolisthesis C4 on C5 with annular fissure and disc extrusion which mildly narrows the central can al at this level. IMPRESSION: 1. No acute intracranial process. 2. A few scattered T2 hyperintense white matter lesions with periventricular predominance which is wi thin normal limits for age and may represent sequela of chronic small vessel ischemic disease. 3. Moderate cervical spondylosis with annular fissure and disc extrusion resulting in mild central ca nal stenosis at C4-C5. Reviewed, dictated and finalized at location A. IMPRESSION: 1. No acute intracranial process. 2. A few scattered T2 hyperintense white matter lesions with periventricular pr edominance which is within normal limits for age and may represent sequela of c hronic small vessel ischemic disease. 3. Moderate cervical spondylosis with annular fissure and disc extrusion result ing in mild central canal stenosis at C4-C5.
--- NOTE | ~2019-09-12 | CT_ITS ---
EXAMINATION: CT abdomen pelvis w con DATE: 09/12/2019 15:40 INDICATION: Right abdominal pain. Hematuria. TECHNIQUE: Computed tomography (CT) of the abdomen and pelvis was performed with 100 cc Omnipaque 350 intravenous contrast. The dose-length product was 555.93 mGy-cm. Automated exposure control and iter ative reconstruction technique were employed. COMPARISON: CT dated 09/01/2019. FINDINGS: Bibasilar atelectasis. Heart size normal. No significant pleural or pericardial effusion. N o significant vascular abnormality. No lymphadenopathy. There is a poorly defined hypovascular mass of the left kidney measuring 1.8 x 1.4 cm, new compared w ith prior study. There is a left internal ureteral stent present. There is mild right hydronephrosis. There is nonobstructing right renal stones. There are gallstones. No free air or free fluid. Left in ternal ureteral stent in expected position. There are left renal cysts. Colonic diverticulosis withou t evidence for diverticulitis. Nonobstructive bowel gas pattern. IMPRESSION: 1. Ill-defined hypovascular area of the left kidney, new. Findings suspicious for pyelonephritis. Com mon follow-up CT with contrast and 4-6 weeks following appropriate therapy to assess for resolution. 2: Cholelithiasis. 3: Nonobstructing right nephrolithiasis. Mild right hydronephrosis. Reviewed, dictated and finalized at location A. IMPRESSION: 1. Ill-defined hypovascular area of the left kidney, new. Findings suspicious f or pyelonephritis. Common follow-up CT with contrast and 4-6 weeks following ap propriate therapy to assess for resolution. 2: Cholelithiasis. 3: Nonobstructing right nephrolithiasis. Mild right hydronephrosis.
--- NOTE | ~2019-09-12 | XR_ITS ---
EXAMINATION: XR abdomen/kub 1V DATE: 09/20/2019 13:31 INDICATION: Constipation TECHNIQUE: A supine view of the abdomen on 2 radiographs was obtained. COMPARISON: None. FINDINGS: Small to moderate amount of gas and stool scattered throughout the colon. No dilated loops of gas-shavonne led small bowel to suggest obstruction. There are couple calcified gallstones in the right upper quad rant. A few phleboliths in the pelvis. IMPRESSION: 1. Nonobstructive bowel gas pattern. 2. Cholelithiasis. Reviewed, dictated and finalized at location A.
--- NOTE | ~2019-09-12 | CT_ITS ---
EXAMINATION: CT abdomen pelvis wo con DATE: 09/15/2019 13:26 INDICATION: Severe abdominal pain TECHNIQUE: Computed tomography (CT) of the abdomen and pelvis was performed without intravenous contr ast. Automated exposure control and iterative reconstruction technique were employed. Exam dose: 510 .59 mGy-cm total exam DLP. COMPARISON: 09/12/2019 CT abdomen and pelvis with IV contrast material FINDINGS: There is a focal areas of discoid atelectasis and/or scarring at the lung bases, most promi nent in the right lower lobe. Normal heart size. No pericardial or pleural effusion. There are 2 approximately 13 mm gallstones within the gallbladder. No abnormal gallbladder wall thick ening or pericholecystic fluid or fat stranding is evident. No bile duct or pancreatic duct dilatatio n. No hepatic, splenic, pancreatic, adrenal or apparent solid renal space-occupying mass lesion is evide nt. Approximately 1.9 cm exophytic left renal cyst is stable since 09/12/2019. There are 4 nonobstructing right renal stones measuring up to 4 mm approximate maximal dimension. The re is a pinpoint nonobstructing lower pole left renal calculus. Left internal urinary stent is in exp ected position. The urinary bladder is unremarkable. Status post hysterectomy. There is atherosclerotic calcification but normal caliber of the abdominal aorta. No intraperitoneal or retroperitoneal or pelvic mass lesion or adenopathy or ascites. Normal appendix. No bowel obstruction, bowel wall thickening, pneumatosis or intraperitoneal free air . Incidental finding of hemangioma of T12 vertebral body. Probable healed bilateral L5 pars interarticularis defects with grade 1 anterolisthesis and prominent degenerative disc disease at L5-S1. No suspicious osteolytic or osteoblastic lesions are noted. IMPRESSION: Cholelithiasis 1.9 cm exophytic left renal cyst Nonobstructive right and to a lesser extent left nephrolithiasis Left internal urinary stent in expected position Status post hysterectomy T12 vertebral body hemangioma Grade 1 anterolisthesis and prominent degenerative disc disease at L5-S1 Reviewed, dictated and finalized at [facility]. Reviewed, dictated and finalized at location [facility].
--- NOTE | ~2019-09-12 | CT_ITS ---
EXAMINATION: CT brain wo con INDICATION: Dizziness and blurry vision COMPARISON: None TECHNIQUE: Standard unenhanced head CT. The dose-length product (DLP) was 605.33 mGy-cm. The mA was a djusted according to patient size. Iterative reconstruction technique was employed. FINDINGS: There is no intracranial hemorrhage, acute infarction, or abnormal mass lesion. The ventric les are normal. There is no abnormal mass effect or midline shift. The samuels-white matter differentiat ion is normal. The basal cisterns are patent. The orbits are normal. There is mild mucosal thickening of the paranasal sinuses. IMPRESSION: 1. No acute intracranial abnormality. Reviewed, dictated and finalized at location A.
--- NOTE | ~2019-09-12 | XR_ITS ---
EXAMINATION: XR chest 2V EXAM DATE: 09/12/2019 13:33 INDICATION: Chest pain. TECHNIQUE: Frontal and lateral projections of the chest obtained and reviewed. Comparison is made to prior examination from 03/06/2017. FINDINGS: The lungs are clear. There are no pleural effusions. The cardiomediastinal silhouette is within normal limits. There is no pneumothorax suspected. The bones and soft tissues are unremarkab le. IMPRESSION: No acute cardiopulmonary findings. Reviewed, dictated and finalized at location A.
--- NOTE | ~2019-09-12 | XR_ITS ---
EXAMINATION: XR retrograde pyelo w/stent LT EXAM DATE: 09/16/2019 12:41 INDICATION: Left retrograde, stent replacement. TECHNIQUE: Fluoroscopy used during XR retrograde pyelo w/stent LT performed by Dr. Carl erickson MD. The DAP for this procedure was 0.2 mGym2. FINDINGS: Image demonstrates cannulation of the left ureter, replacement of a left double-J ureteral stent. Some contrast within left renal calyces from retrograde pyelogram. Correlate with procedure note. IMPRESSION: Fluoroscopy used during XR retrograde pyelo w/stent LT. Reviewed, dictated and finalized at location A.
--- NOTE | 2019-09-12 13:06 | ECG_ITS ---
Measurements Intervals [place] Rate: 66 P: 34 WA: 174 QRS: -6 QRSD: 90 T: 16 QT: 366 QTc: 385 Interpretive Statements SINUS RHYTHM VOLTAGE CRITERIA FOR LVH BASELINE ARTIFACT- I, II, AVR, AVL, AVF, V1-V3 BORDERLINE ECG Electronically Signed On 09-12-2019 14:00:04 CDT by Misael Torrez D.O.
[2019-09-12 13:19] LABS: Basophils Percent Auto 0.5 % (0.2-1.2); Eosinophils Absolute Auto 0.4 K/mm3 (0-0.3); Eosinophils Percent Auto 5.6 % (0-4.4); Hematocrit 37.1 % (37.0-47.0); Hemoglobin 12.1 g/dL (12.0-15.0); Immature Granulocyte Absolute 0.05 K/mm3 (0.00-0.031); Immature Granulocyte Percent A 0.6 % (0-0.5); Lymphocytes Absolute Auto 2.51 K/mm3 (0.9-3.2); Lymphocytes Percent Auto 31.7 % (18.3-44.2); Mean Corpuscular HGB Conc 32.6 g/dl (32-36); Mean Corpuscular Hemoglobin 27.1 pg (26-34); Mean Corpuscular Volume 83.2 fl (80-100); Mean Platelet Volume 9.6 fl (7.4-10.4); Monocytes Absolute Auto 0.6 K/mm3 (0.1-0.6); Monocytes Percent Auto 7.7 % (2.6-8.5); Neutrophils Absolute Auto 4.3 K/mm3 (1.3-6.7); Neutrophils Percent Auto 53.9 % (45.5-73.1); Platelet Count Result 335 k/mm3 (150-375); Red Blood Count 4.46 M/mm3 (4.2-5.4); Red Cell Distribution Width 13.2 % (11.5-14.5); White Blood Count 7.9 K/mm3 (4.5-10.0)
[2019-09-12 13:30] LABS: Lipase 49 U/L (23-300)
[2019-09-12 13:32] LABS: Anion Gap 11.5 mmol/L (7-16); Blood Urea Nitrogen 23 mg/dL (7-17); Calcium 9.1 mg/dL (8.4-10.2); Carbon Dioxide 24 mmol/L (22-30); Chloride 106 mmol/L (98-107); Estimated Glomerular Filt Rate 46; Glucose 110 mg/dL (65-105); Partial Thromboplastin Time 26.5 SECONDS (22.3-36.8); Potassium 4.5 mmol/L (3.4-5.0); Prothrombin Time 12.7 Seconds (11.1-14.7); Sodium 137 mmol/L (137-145)
[2019-09-12 13:33] LABS: Add Urine Microscopic? YES; Appearance Urine Cloudy (Clear); Bacteria Urine Trace /hpf; Bilirubin Urine Negative (Negative); Blood Urine 3+ (Negative); Color Urine Yellow (Yellow); Glucose Urine UA Negative (Negative); Ketones Urine Negative (Negative); Leukocyte Esterase Ur 3+ LEU/UL (Negative); Mucus Urine Rare /lpf; Nitrate Urine Negative (Negative); Protein Urine 2+ mg/dL (Negative); RBC Urine >75 /hpf (0-2); Specific Grav Ur 1.017 (1.001-1.035); Squamous Epithelial Cell Urine Few /hpf (Few); Urobilinogen Urine Negative mg/dL (<2.0); WBC Urine >75 /hpf
[2019-09-12 13:43] LABS: Troponin I < 0.012 ng/mL (0.000-0.034)
--- NOTE | 2019-09-12 13:51 | ED.CHESTPAIN ---
HPI - Chest Pain General Chief Complaint: Chest Pain Stated Complaint: abdominal and chest pain Time Seen by Provider: 09/12/19 13:22 Source: patient History of Present Illness HPI narrative: 63 years old white female status post left kidney stone removal and left ureteric stent placement 1 week ago. Patient woke up at 4 AM with severe pain at the right abdomen going to her right back, sharp and stabbing, was pressure feeling at the lower part of the sternum over 6. Patient took her hydrocodone without improvement. Patient been taking a lot of stool softener lately for constipation, yesterday had 7 loose stools. Patient denies any fever, chills, nausea or vomiting. Related Data Home Medications Medication Instructions Recorded Confirmed acetaminophen [Tylenol] 325 mg PO Q4-6H PRN 04/22/19 09/02/19 gabapentin 300 mg BID 04/22/19 09/02/19 Allergies Allergy/AdvReac Type Severity Reaction Status Date / Time aspirin Allergy Unknown ITCHING, Verified 09/02/19 16:29 GI UPSET levofloxacin Allergy Unknown Hallucinati Verified 09/02/19 16:29 ons Penicillins Allergy Unknown Unknown- Verified 09/02/19 16:29 CHILD salicylates Allergy Unknown GI UPSET Verified 09/02/19 16:29 carisoprodol AdvReac Unknown Gastrointestinal Verified 09/02/19 16:29 Upset Review of Systems Review of Systems: Narrative: CONSTITUTIONAL: Denies fever, chills, or sweats. EYES: Denies visual changes, redness, or discharge. ENT: Denies rhinorrhea, congestion, sore throat, or otalgia. CARDIOVASCULAR: Denies chest pain, palpitations, or edema. RESPIRATORY: Denies cough or dyspnea. GASTROINTESTINAL: Denies abdominal pain, nausea, vomiting, or diarrhea. GENITOURINARY: Denies dysuria or hematuria. SKIN: Denies rash or itching. MUSCULOSKELETAL: Denies back pain, joint pain, or myalgia. NEUROLOGIC: Denies headache, numbness, or weakness. PSYCHIATRIC: Denies anxiety or depression. [facility] Past Medical History Medical History Agoraphobia Bronchitis Chronic back pain DDD (degenerative disc disease) Depression HTN (hypertension) IBS (irritable bowel syndrome) Pleurisy Surgical History Surgical History History of hysterectomy Family History Family History Mother Hypertension Carcinoma of colon Father Hypertension Carcinoma of colon Family history of diabetes mellitus in first degree relative Sibling Family history of malignant neoplasm of brain Other Family history of malignant neoplasm of male breast Social History Social History Smoking status: Never smoker Alcohol intake: never Substance use: never Substance use type: does not use Gender identity (if verbalized by the patient): Female Spiritual care concerns: No Agree to blood products: Yes Exam Narrative: Exam Narrative: General appearance: Well-developed, well-nourished Skin: Normal color Head: Normocephalic, nontraumatic Eyes: Clear conjunctiva ENT: Oropharynx normal, ears normal, nose normal Neck: Supple, nontender Chest and respiratory: Airway patent, no respiratory distress, no accessory muscle use Heart: Regular rate/rhythm Abdomen: Soft, diffuse tenderness right lower quadrant, slight guarding, no rebound , no organomegaly, quiet bowel sounds Vascular: Normal peripheral pulses, normal capillary refill. Musculoskeletal: Normal range of motion, nontender back Neurologic: Alert and oriented ?3, [employer] is normal as tested, no gross motor deficit Course Course E
[2019-09-12] MEDS: ONDANSETRON INJ 4 MG/2 ML VIAL IV PUSH (14:05)
[2019-09-12] MEDS: SODIUM CHLORIDE 0.9% IV 1,000 ML 999 ML IV CONT (14:13)
--- NOTE | 2019-09-12 15:25 | PC.NURSE ---
Pt to CT
--- NOTE | 2019-09-12 15:27 | PC.NURSE ---
Pt to Radiology
[2019-09-12 16:27] LABS: Troponin I < 0.012 ng/mL (0.000-0.034)
--- NOTE | 2019-09-12 18:18 | ADMGEN ---
This patient, Eladia Mock, was admitted to 2 Medical Room 260-. Patient/family oriented to hospital policies and general routines including ID bracelet, bed and alarms, visiting hours, pain management, procedures, bathroom and other care routines, personal items, smoking policy, room service/diet, and visiting hours. Valuables list has been completed. Information on how to activate the Rapid Response Team has been discussed. Patient/Family are encouraged to report perceived risks to care and to ask questions if they do not understand what they are told or what they should do.
[2019-09-12] MEDS: LACTATED RINGERS 1,000 ML 125 ML IV CONT (18:50)
[2019-09-12 19:33] LABS: Troponin I < 0.012 ng/mL (0.000-0.034)
--- NOTE | 2019-09-12 22:37 | PM.IMHP ---
H&P: HPI History of Present Illness Date/Time: 09/12/19 22:37 Chief complaint: Acute pyelonephritis/renal mass Narrative: Eladia Mock is a 63 year old female Has a history of kidney stones. On 09/04/2019 the patient had a left ureteral stone she had a procedure performed cystoscopy left retrograde pyelogram, left ureteral stent placement 4.8 [place]istan[place] contour, ESWL left ureteral calculus. The patient typically has constipation and she took a stool softener because she has been taking some pain medication at home namely [place]. She stated she started having diarrhea the last couple days. The patient stated that she was treated for urinary tract infection outpatient with oral medications. Patient woke up at 4:00 a.m. this morning with severe pain. the patient when she came in today she said that it was epigastric or sternal pain and it was right flank pain and she has been having loose stools but she thinks that is from the stool softener that she took yesterday. No fever chills no nausea vomiting. Abdominal and pelvis CT was performed with contrast. It shows a poorly defined hypovascular mass of the left kidney measuring 1.8 x 1.4 cm which is new compared with the prior studies. And the left stent is present. The patient stated that she did have blood in her urine today. There is a nonobstructing right renal stones as well. Cholelithiasis which the patient is aware of. Ill-defined hypovascular area of the left kidney new finding suspicious for pyelonephritis. I was told that urology would be consulted. And it looks like they were consulted. Patient was started on ceftriaxone. Urine cultures are pending. The patient was given Dilaudid, Zofran IV fluids and ceftriaxone in the emergency room. I spent approximately 45 minutes with this patient during the admission. Date of service is 09/12/2019 Review of Systems Review of Systems: All systems reviewed & are unremarkable except as noted in HPI and below Constitutional: Constitutional: Reports as per HPI and Reports no additional constitutional complaints Eyes: Eyes: Reports as per HPI and Reports no additional eye complaints ENT: Reports system reviewed and no additional complaints, except as documented and Reports Normal hearing present Cardiovascular: Cardiovascular: Reports no additional cardiovascular complaints Respiratory: Respiratory: Reports no additional respiratory complaints and Reports no additional respiratory complaints Gastrointestinal: Gastrointestinal: Reports as per HPI and Reports no additional gastrointestinal complaints Musculoskeletal: Musculoskeletal: Reports no additional musculoskeletal complaints Integumentary/Breasts: Skin/Breast: Reports system reviewed and no additional complaints, except as docu and Reports as per HPI Neurologic: Reports system reviewed and no additional complaints, except as documented, Reports as per HPI and Reports Normal hearing present Psychiatric: Psychiatric: Reports no additional psychiatric complaints and Reports as per HPI Endocrine: Endocrine: Reports no additional endocrine complaints Hematologic/Lymphatic: Hematologic/Lymphatic: Reports no additional hematologic/lymphatic complaints Allergic/Immunologic: Allergic/Immunologic: Reports no additional allergic/immunologic complaints [facility] Past Medical History Medical History (Updated 09/12/19 @ 22:46 by Ellie Gallegos NP) Agoraphobia Bronchitis Chronic back pain DDD (degenerative disc disease) Depression HTN (hypertension) IBS (irritable bowel syndrome) Pleurisy Surgical History Surgical History (Updated 09/12/19 @ 22:47 by Ellie Gallegos NP) H/O colonoscopy with polypectomy History of hysterectomy partial History of renal stent Family History Family History (Updated 09/12/19 @ 22:48 by Ellie Gallegos NP) Mother Carcinoma of colon Hypertension Father Family history of diabetes mellitus in first degree relative Carcinoma of colon Hyperte
[2019-09-12] MEDS: GABAPENTIN 300 MG CAPSULE BY MOUTH (23:40)
[2019-09-12] MEDS: CYCLOBENZAPRINE HCL 10 MG TABLET PO (23:40)
[2019-09-12] MEDS: carvediloL 25 MG TABLET PO (23:40)
[2019-09-13 02:28] LABS: Basophils Percent Auto 0.4 % (0.2-1.2); Eosinophils Absolute Auto 0.4 K/mm3 (0-0.3); Hematocrit 34.6 % (37.0-47.0); Immature Granulocyte Absolute 0.04 K/mm3 (0.00-0.031); Immature Granulocyte Percent A 0.5 % (0-0.5); Lymphocytes Absolute Auto 3.26 K/mm3 (0.9-3.2); Lymphocytes Percent Auto 39.9 % (18.3-44.2); Mean Corpuscular HGB Conc 31.8 g/dl (32-36); Mean Corpuscular Hemoglobin 26.8 pg (26-34); Mean Corpuscular Volume 84.4 fl (80-100); Mean Platelet Volume 9.7 fl (7.4-10.4); Monocytes Absolute Auto 0.6 K/mm3 (0.1-0.6); Monocytes Percent Auto 7.6 % (2.6-8.5); Neutrophils Absolute Auto 3.8 K/mm3 (1.3-6.7); Neutrophils Percent Auto 46.6 % (45.5-73.1); Platelet Count Result 304 k/mm3 (150-375); Red Cell Distribution Width 13.4 % (11.5-14.5); White Blood Count 8.2 K/mm3 (4.5-10.0)
[2019-09-13] MEDS: LACTATED RINGERS 1,000 ML 125 ML IV CONT (03:35)
[2019-09-13 05:58] VITALS: BP 112/58; PULSE 56; RESP 18; TEMP 36.3; O2SAT 96
[2019-09-13] MEDS: GABAPENTIN 300 MG CAPSULE BY MOUTH (09:18)
[2019-09-13 09:19] VITALS: PULSE 54
[2019-09-13] MEDS: CYCLOBENZAPRINE HCL 10 MG TABLET PO ×3 (09:19→17:02)
[2019-09-13] MEDS: amLODIPine BESYLATE 5 MG TABLET PO (09:19)
[2019-09-13] MEDS: carvediloL 25 MG TABLET PO ×2 (09:19→20:39)
[2019-09-13 10:31] LABS: Blood Urea Nitrogen 14 mg/dL (7-17); Calcium 9.3 mg/dL (8.4-10.2); Carbon Dioxide 30 mmol/L (22-30); Chloride 103 mmol/L (98-107); Estimated CRCL calculation 46 ml/min; Estimated Glomerular Filt Rate 50; Glucose 95 mg/dL (65-105); Sodium 137 mmol/L (137-145)
--- NOTE | 2019-09-13 10:31 | PM.IMPN ---
Progress Note: A&P Assessment and Plan (1) Pyelonephritis: Code(s): N12 - Tubulo-interstitial nephritis, not specified as acute or chronic Status: Acute Assessment and Plan: Patient presents with abdominal pain, dysuria and hematuria. CT abdomen demonstrates findings consistent with acute left pyelonephritis. UA is grossly abnormal. Continue IV ceftriaxone while awaiting urine and blood cultures. (2) Nephrolithiasis: Code(s): N20.0 - Calculus of kidney Status: Acute Assessment and Plan: Recently had left 4mm ureteral calculus and underwent ESWL with left ureteral stent placement by Dr Parnell 09/03. Today abdominal CT shows nonobstructing right renal calculi with mild right hydronephrosis. Appreciate urology recommendations in this setting. She is having bladder spasms and starting Myrbetric was recommended. Will start today. (3) Cholelithiasis: Qualifiers: Cholelithiasis location: gallbladder Cholecystitis presence: without cholecystitis Biliary obstruction: without biliary obstruction Qualified Code(s): K80.20 - Calculus of gallbladder without cholecystitis without obstruction Code(s): K80.20 - Calculus of gallbladder without cholecystitis without obstruction Status: Acute Assessment and Plan: She does have some right upper quadrant tenderness. CT abdomen shows cholelithiasis without evidence of cholecystitis. She may benefit from outpatient surgery follow up in the future. Will check bili and LFTs in AM. 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 Continue her home medications. (5) Essential (primary) hypertension: Code(s): I10 - Essential (primary) hypertension Status: Chronic Assessment and Plan: BPs reviewed 8/2. She is maintained on her home norvasc and coreg today. Losartan was held due to elevated creatinine. Monitor BPs and adjust treatment as needed. (6) NELLY (acute kidney injury): Code(s): N17.9 - Acute kidney failure, unspecified Status: Acute Assessment and Plan: Cr mildly elevated at 1.2 yesterday in the setting of acute pyelo and recent ureteral stenting. Improved today with IV hydration. Avoid nephrotoxic agents and monitor renal function. (7) Dizziness: Code(s): R42 - Dizziness and giddiness Status: Acute Assessment and Plan: May be related to infection/mild dehydration. Continue IV fluids. Vitals are stable. If persists tomorrow, may consider further workup. Subjective Date/time seen: 09/13/19 10:15 Interval history: Ms. Mock is a 63yo F admitted for acute pyelonephritis. Today she reports moderate suprapubic pain, dysuria and bladder spasms. She denies any chest pain, shortness of breath, or cough. She describes some mild blurry vision from both eyes with reading, no eye pain or headache. Nursing later in the day has notified me of lightheadedness with standing. She is not having any issues with speech or swallowing. She reports nausea. Review of Systems Review of Systems: Narrative: Twelve systems were reviewed with pertinent positives and negatives as per HPI. Exam Narrative: Exam Narrative: General: Female resting supine in bed in no acute distress. Anxious. HEENT: Normocephalic, EOM intact and no pain endorsed with movement, PERRL. Cardiovascular: Rate and rhythm are regular. Soft systolic murmur heard over left sternal border. Respiratory: Lungs clear to auscultation all schroeder. Non-labored breathing. Abdomen: Soft, non-distended, bowel sounds present. Diffuse tenderness to palpation in all 4 quadra
--- NOTE | 2019-09-13 11:06 | WPDURCON ---
Assessment and Plan Assessment and plan (1) Anxiety disorder, unspecified: Code(s): F41.9 - Anxiety disorder, unspecified Status: Chronic Assessment and Plan: I think is contributing to her pain. (2) Pyelonephritis: Code(s): N12 - Tubulo-interstitial nephritis, not specified as acute or chronic Status: Acute Assessment and Plan: Possible left pyelo, new on CT- no evidence of obstruction. Agree with broad spectrum antibiotics until cultures return. (3) H/O nephrolithotomy with removal of calculi: Code(s): Z98.890 - Other specified postprocedural states; Z87.442 - Personal history of urinary calculi Status: Acute Assessment and Plan: Small stone fragment alongside stent in the proximal ureter. No evidence for sepsis. Will leave decision whether to treat this to Dr. Parnell. (4) Bladder spasm: Code(s): N32.89 - Other specified disorders of bladder Status: Acute Assessment and Plan: Would add mirabegron 25 mg qd if available-- would avoid anticholinergics given history of constipation. Urology Consult Note HPI Date Seen: 09/13/19 Requesting Physician: Fab Tena MD Primary Care Provider: Deny Canseco MD Consult Narrative Narrative: Eladia Mock is a 63 year old female with history of nephrolithiasis who underwent left ESWL and stent placement on 09/03. Stone was poorly visualized. RPG was performed to localize the stone. Plan was for follow up CT stone protocol to see about any residual fragments. She presented to the ED yesterday for epigastric and right upper quadrant pain. Known gallstones. CT shows normal right kidney, possible left pyelo, stent in appropriate position, proximal small stone alongside the stent. UA c/w stent, possible UTI; cultures pending. She is also having some bladder spasms. Not bothered on left side. Review of Systems Review of Systems: All systems reviewed & are unremarkable except as noted in HPI and below PMFSH Past Medical History Medical History (Updated 09/13/19 @ 11:12 by Volodymyr Hector MD) Agoraphobia Bronchitis Chronic back pain DDD (degenerative disc disease) Depression HTN (hypertension) IBS (irritable bowel syndrome) Pleurisy Surgical History Surgical History (Updated 09/12/19 @ 22:47 by Ellie Gallegos NP) H/O colonoscopy with polypectomy History of hysterectomy partial History of renal stent Family History Family History (Updated 09/12/19 @ 22:48 by Ellie Gallegos NP) Mother Carcinoma of colon Hypertension Father Family history of diabetes mellitus in first degree relative Carcinoma of colon Hypertension Acute myocardial infarction Sibling Family history of malignant neoplasm of brain Rheumatoid arthritis Other Family history of malignant neoplasm of male breast Social History Social History (Updated 09/12/19 @ 22:49 by Ellie Gallegos NP) Social History: the patient lives with her Juan who is a durable power patent prosecution attorney for healthcare. The patient desires to be a full code. She helps her relatives clean house fall living. She has 1 child. Which is a son. She denies any alcohol marijuana or illicit drugs. Smoking status: Former smoker Alcohol intake: never Substance use: never Substance use type: does not use Living arrangements: with family Gender identity (if verbalized by the patient): Female Spiritual care concerns: No Agree to blood products: Yes Meds Home Medications and Allergies Home Medications Medication Instructions Recorded Confirmed Type acetaminophen [Tylenol] 325 mg PO Q4-6H PRN 04/22/19 09/12/19 History gabapentin 300 mg BID 04/22/19 09/12/19 History amlodipine 5 mg tablet 5 mg PO DAILY #30 tablet 05/14/19 09/12/19 Rx carvedilol 25 mg tablet 25 mg PO Q12H #60 tablet 05/14/19 09/12/19 Rx naproxen 500 mg tablet 500 mg PO BID #60 tablet 05/14/19 09/12/19 Rx losartan 50 mg tablet 50 mg PO
[2019-09-13] MEDS: LACTATED RINGERS 1,000 ML 100 ML IV CONT ×2 (12:48→20:38)
[2019-09-13] MEDS: MIRABEGRON 25 MG ER TABLET PO (13:44)
[2019-09-13 14:00] VITALS: BP 119/56; PULSE 53; RESP 18; TEMP 36.1; O2SAT 96
[2019-09-13 20:00] VITALS: PULSE 62; RESP 16; O2SAT 100
[2019-09-13 20:39] VITALS: PULSE 80
[2019-09-13 21:01] VITALS: BP 134/69; PULSE 62; RESP 16; TEMP 36.3; O2SAT 100
[2019-09-14 05:33] LABS: Basophils Percent Auto 0.4 % (0.2-1.2); Eosinophils Absolute Auto 0.4 K/mm3 (0-0.3); Eosinophils Percent Auto 5.1 % (0-4.4); Hemoglobin 11.9 g/dL (12.0-15.0); Immature Granulocyte Absolute 0.04 K/mm3 (0.00-0.031); Immature Granulocyte Percent A 0.5 % (0-0.5); Lymphocytes Percent Auto 39.1 % (18.3-44.2); Mean Corpuscular HGB Conc 32.2 g/dl (32-36); Mean Corpuscular Hemoglobin 27.4 pg (26-34); Mean Corpuscular Volume 85.3 fl (80-100); Mean Platelet Volume 9.7 fl (7.4-10.4); Monocytes Absolute Auto 0.6 K/mm3 (0.1-0.6); Monocytes Percent Auto 8.5 % (2.6-8.5); Neutrophils Absolute Auto 3.4 K/mm3 (1.3-6.7); Neutrophils Percent Auto 46.4 % (45.5-73.1); Platelet Count Result 314 k/mm3 (150-375); Red Blood Count 4.34 M/mm3 (4.2-5.4); Red Cell Distribution Width 13.4 % (11.5-14.5); White Blood Count 7.4 K/mm3 (4.5-10.0)
[2019-09-14 05:48] LABS: Alanine Aminotransferase 15 U/L (4-35); Albumin Level 3.3 g/dL (3.5-5.1); Alkaline Phosphatase 83 U/L (38-126); Anion Gap 7.1 mmol/L (7-16); Aspartate Amino Transferase 25 U/L (14-36); Bilirubin,Total 0.4 mg/dL (0.2-1.3); Blood Urea Nitrogen 13 mg/dL (7-17); Carbon Dioxide 29 mmol/L (22-30); Chloride 104 mmol/L (98-107); Estimated CRCL calculation 46 ml/min; Estimated Glomerular Filt Rate 50; Glucose 109 mg/dL (65-105); Magnesium 1.9 mg/dL (1.6-2.3); Potassium 4.1 mmol/L (3.4-5.0); Sodium 136 mmol/L (137-145)
[2019-09-14 06:00] VITALS: BP 140/64; PULSE 68; RESP 18; TEMP 36.4; O2SAT 98
[2019-09-14 08:26] VITALS: PULSE 64
[2019-09-14] MEDS: MIRABEGRON 25 MG ER TABLET PO (08:26)
[2019-09-14] MEDS: amLODIPine BESYLATE 5 MG TABLET PO (08:26)
[2019-09-14] MEDS: CYCLOBENZAPRINE HCL 10 MG TABLET PO ×3 (08:26→16:26)
[2019-09-14] MEDS: carvediloL 25 MG TABLET PO ×2 (08:26→20:33)
[2019-09-14] MEDS: LACTATED RINGERS 1,000 ML 100 ML IV CONT (08:31)
[2019-09-14 14:00] VITALS: BP 117/60; PULSE 63; RESP 16; TEMP 36.5; O2SAT 97
--- NOTE | 2019-09-14 15:22 | PM.IMPN ---
Progress Note: A&P Assessment and Plan (1) Pyelonephritis: Code(s): N12 - Tubulo-interstitial nephritis, not specified as acute or chronic Status: Suspected Assessment and Plan: Patient presents with abdominal pain, dysuria and hematuria. CT abdomen demonstrates findings consistent with acute left pyelonephritis. UA is grossly abnormal. Urine culture growing multiple organisms not identified - culture results may have been affected since she was just recently on macrobid. At this point will continue IV ceftriaxone and appreciate urology input. Blood cultures are pending with no growth to date. (2) Bladder spasm: Code(s): N32.89 - Other specified disorders of bladder Status: Acute Assessment and Plan: She is having bladder spasms; Myrbetric was recommended and started yesterday. She was recently started on oxybutinin by urology outpatient for similar symptoms. Appreciate further input from urology. (3) Nephrolithiasis: Code(s): N20.0 - Calculus of kidney Status: Acute Assessment and Plan: Recently had left 4mm ureteral calculus and underwent ESWL with left ureteral stent placement by Dr Parnell 09/03. Abdominal CT shows nonobstructing right renal calculi with mild right hydronephrosis, left ureteral stent. (4) Cholelithiasis: Qualifiers: Cholelithiasis location: gallbladder Cholecystitis presence: without cholecystitis Biliary obstruction: without biliary obstruction Qualified Code(s): K80.20 - Calculus of gallbladder without cholecystitis without obstruction Code(s): K80.20 - Calculus of gallbladder without cholecystitis without obstruction Status: Acute Assessment and Plan: She does have some right upper quadrant tenderness. CT abdomen shows cholelithiasis without evidence of cholecystitis. She may benefit from outpatient surgery follow up in the future. Bili and LFTs are within normal limits. 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 Continue her home medications. (6) Essential (primary) hypertension: Code(s): I10 - Essential (primary) hypertension Status: Chronic Assessment and Plan: BP stable on home norvasc and coreg today. Losartan was held due to elevated creatinine. Monitor BPs and adjust treatment as needed. (7) NELLY (acute kidney injury): Code(s): N17.9 - Acute kidney failure, unspecified Status: Acute Assessment and Plan: Improved today with IV hydration. Will decrease rate of fluids. Avoid nephrotoxic agents and monitor renal function. (8) Dizziness: Code(s): R42 - Dizziness and giddiness Status: Acute Assessment and Plan: May be related to infection/mild dehydration. Continue IV fluids. Vitals are stable. CT brain is normal. Subjective Date/time seen: 09/14/19 1115 Interval history: Ms. Mock is a 63yo F admitted for acute pyelonephritis. Her symptoms today include bladder spasm and suprapubic pain, and have improved today but are still present. She describes blurry vision again today with reading and some mild dizziness when up walking, no other neuro deficits like weakness or one-sided symptoms. She denies any chest pain, shortness of breath, or cough. Nausea improved. Anxious. Review of Systems Review of Systems: Narrative: Twelve systems were reviewed with pertinent positives and negatives as per HPI. Exam Narrative: Exam Narrative: General: Female resting supine in bed in no acute distress. Anxious. HEENT: Normocephalic, EOM intact and no pain endorsed with m
--- NOTE | 2019-09-14 16:00 | PC.NURSE ---
Called urology office to determine what time urologist would be rounding on patient today. Per Alla Akbar attendance secretary - who called office after I was unable to reach anyone - Dr. Parnell has been in surgery all afternoon according to office staff. Notified patient of same.
[2019-09-14] MEDS: LACTATED RINGERS 1,000 ML 70 ML IV CONT (19:53)
[2019-09-14 20:00] VITALS: PULSE 70; RESP 20; O2SAT 98
[2019-09-14 20:33] VITALS: PULSE 78
[2019-09-14 22:00] VITALS: BP 141/63; PULSE 70; RESP 20; TEMP 36.7; O2SAT 98
[2019-09-15 05:41] VITALS: BP 120/54; PULSE 66; RESP 18; TEMP 36; O2SAT 97
[2019-09-15] MEDS: amLODIPine BESYLATE 5 MG TABLET PO (08:59)
[2019-09-15 09:00] VITALS: PULSE 68
[2019-09-15] MEDS: CYCLOBENZAPRINE HCL 10 MG TABLET PO ×3 (09:00→17:24)
[2019-09-15] MEDS: carvediloL 25 MG TABLET PO ×2 (09:00→21:41)
[2019-09-15] MEDS: DOCUSATE SODIUM 100 MG CAPSULE PO ×2 (09:00→21:41)
[2019-09-15] MEDS: MIRABEGRON 25 MG ER TABLET PO (09:00)
[2019-09-15] MEDS: LACTATED RINGERS 1,000 ML 70 ML IV CONT (09:14)
--- NOTE | 2019-09-15 10:21 | PM.IMPN ---
Progress Note: A&P Assessment and Plan (1) Pyelonephritis: Code(s): N12 - Tubulo-interstitial nephritis, not specified as acute or chronic Status: Suspected Assessment and Plan: Patient presents with abdominal pain, bladder spasm and hematuria. CT abdomen demonstrates findings consistent with acute left pyelonephritis. UA is grossly abnormal. Urine culture growing multiple organisms not identified - culture results may have been affected since she was just recently on macrobid. At this point will continue IV ceftriaxone and appreciate urology input. Blood cultures are pending with no growth to date. (2) Bladder spasm: Code(s): N32.89 - Other specified disorders of bladder Status: Acute Assessment and Plan: She is having bladder spasms; Myrbetric was recommended and started 09/12 but not giving much relief. She was recently started on oxybutinin by urology outpatient for similar symptoms. Appreciate further input from urology. Discussed with CHERYL Barillas who has started levsin. (3) Nephrolithiasis: Code(s): N20.0 - Calculus of kidney Status: Acute Assessment and Plan: Recently had left 4mm ureteral calculus and underwent ESWL with left ureteral stent placement by Dr Parnell 09/03. Abdominal CT shows nonobstructing right renal calculi with mild right hydronephrosis, left ureteral stent. (4) Cholelithiasis: Qualifiers: Biliary obstruction: without biliary obstruction Cholecystitis presence: without cholecystitis Cholelithiasis location: gallbladder Qualified Code(s): K80.20 - Calculus of gallbladder without cholecystitis without obstruction Code(s): K80.20 - Calculus of gallbladder without cholecystitis without obstruction Status: Acute Assessment and Plan: She does have some right upper quadrant tenderness. CT abdomen shows cholelithiasis without evidence of cholecystitis. She may benefit from outpatient surgery follow up in the future, not suspected to be the cause of her acute symptoms. Bili and LFTs are within normal limits. 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 Continue her home medications. (6) Essential (primary) hypertension: Code(s): I10 - Essential (primary) hypertension Status: Chronic Assessment and Plan: BP stable on home norvasc and coreg. Losartan was held due to elevated creatinine and BPs have been stable without it. Monitor BPs and adjust treatment as needed. (7) NELLY (acute kidney injury): Code(s): N17.9 - Acute kidney failure, unspecified Status: Acute Assessment and Plan: Improved with IV hydration. Stop IV fluids. Avoid nephrotoxic agents and monitor renal function. (8) Dizziness: Code(s): R42 - Dizziness and giddiness Status: Acute Assessment and Plan: May be related to infection/mild dehydration, may be related to pain medications? Will try adjusting her pain regimen. CT brain is normal. Vitals are stable. Offered cartoid dopplers but she wishes to try adjusting pain regimen first and coming off the dilaudid to see if that helps dizziness first. Subjective Date/time seen: 09/15/19 1000 Interval history: Ms. Mock is a 63yo F admitted for abdominal pain and bladder spasms following recent ureteral stent placement, possible pyelonephritis. Her symptoms today include bladder spasm and suprapubic pain, worse than yesterday. She describes blurry vision again today with reading and some mild dizziness when up walking, no other neuro deficits like weakness or one-sided sympto
[2019-09-15] MEDS: HYOSCYAMINE SULFATE 0.125 MG TABLET PO ×3 (12:40→21:45)
[2019-09-15] MEDS: MORPHINE SULFATE 2 MG/ML INJ (12:45)
[2019-09-15 14:00] VITALS: BP 123/58; PULSE 67; RESP 18; TEMP 36.5; O2SAT 98
--- NOTE | 2019-09-15 16:15 | WPDUROPN2 ---
Progress Note: A&P Assessment and Plan (1) Bladder spasm: Code(s): N32.89 - Other specified disorders of bladder Status: Acute Assessment and Plan: Try Levsin 0.125mg sublingual q4 PRN. (2) Nephrolithiasis: Code(s): N20.0 - Calculus of kidney Status: Acute Assessment and Plan: On CT without contrast it appears that the previously seen left proximal ureteral stone has passed since her Lithotripsy on 09/04/[address] Parnell and the stent remains in place. She still has non obstructive stones in the kidneys which are not contributing to her pain. Urine culture is negative. UA is not clear, however d/t stent in place, this is an expected finding. Will obtain consent: Cystoscopy, left ureteroscopy with possible stent exchange/removal, left retrograde pyelogram. Plan to go to the OR tomorrow at [address] Parnell. NPO after midnight. Hopefully the stent exchange and/or removal will resolve her pain as it doesn't appear to be an obstruction from a stone or a UTI/pyelonephritis. Subjective Subjective Date/Time Seen: 09/15/19 16:15 POD #7 Cystsocopy, left ESWL, left stent placement Patient is is severe pain initially on the right side, however now today she states on the left. It is worsening. Dr. Hector changed her to Myrbetriq from Oxybutynin for her bladder spasms on Saturday d/t constipation, but neither helped her spasming. Dilaudid has been given consistently without relief. Patient denies nausea or vomiting, but is crying and is guarding when assessed for pain. Will try Levsin for pain. Review of Systems Cardiovascular: Cardiovascular: Denies chest pain Respiratory: Respiratory: Reports no additional respiratory complaints Gastrointestinal: Gastrointestinal: Reports abdominal pain, Denies nausea and Denies vomiting Genitourinary: Genitourinary: Denies hematuria, Denies dysuria, Denies pelvic pain, Reports flank pain and Denies urinary urgency Exam Const: General: acute distress (crying ) severe and uncomfortable Resp: Effort & Inspection: normal respiratory effort Cardio: Rate: regular rate GI: GI Palp: Yes Soft to palpation, Yes Tenderness to palpation present (GI) and Yes Guarding due to palpation present (GI) (left upper quadrant and left flank) Extrem: General: no edema Objective Data Vital Signs Vital Signs: Vital Signs - 24 hr 09/14/19 20:00 09/14/19 20:33 09/14/19 22:00 Temperature 98.1 F Pulse Rate 70 78 70 Respiratory Rate 20 20 Blood Pressure 141/63 H Pulse Oximetry 98 98 09/15/19 05:41 09/15/19 09:00 09/15/19 14:00 Temperature 96.8 F L 97.7 F Pulse Rate 66 68 67 Respiratory Rate 18 18 Blood Pressure 120/54 L 123/58 L Pulse Oximetry 97 98 Intake/Output Intake/Output: Intake & Output 09/12/19 09/13/19 09/14/19 09/15/19 23:59 23:59 23:59 23:59 Intake Total 1150 3940 2910 1360 Output Total 1500 1750 Balance 1150 2440 1160 1360 Meds/Results Medications: Active Medications Generic Name Dose Route Start Last Admin Trade Name Freq PRN Reason Stop Dose Admin Acetaminophen 650 mg 09/15/19 10:27 Tylenol Tablet PO Q4H PRN Pain Rated 5 or Less Hydrocodone Bitart/Acetaminophen 1 tab 09/15/19 10:27 [place] 7.5-325 Mg PO Q6H PRN Pain Rated 6 or Greater Amlodipine Besylate 5 mg 09/13/19 09:00 09/15/19 08:59 Norvasc PO 5 mg DAILY ARCADIO Administration Carvedilol 25 mg 09/12/19 22:55 09/15/19 09:00 Coreg PO 25 mg Q12HR ARCADIO Administration Cyclobenzaprine HCl 10 mg 09/12/19 23:00 09/15/19 12:46 Flexeril PO 10 mg TID ARCADIO Administration Docusate Sodium 100 mg 09/14/19 21:00 09/15/19 09:00 Colace Capsule PO 100 mg Q12HR ARCADIO Administration Gabapentin 300 mg 09/12/19 23:00 09/13/19 09:18 Neurontin BY MOUTH 300 mg BID ARCADIO Administration Hydroxyzine HCl 25 mg 09/13/19 10:19 Atarax Tablet PO TID PRN Anxiety Hyoscyamine 0.125 mg
[2019-09-15 21:41] VITALS: PULSE 74
[2019-09-15 22:00] VITALS: BP 120/56; PULSE 72; RESP 18; TEMP 36.3; O2SAT 96
[2019-09-16] VITALS (18 sets, daily range): BP systolic 116–138; BP diastolic 50–72; PULSE 58–89; RESP 12–19; TEMP 35.6–36.6; O2SAT 93–100
[2019-09-16 05:32] LABS: Basophils Absolute Auto 0.1 K/mm3 (0.0-0.1); Basophils Percent Auto 0.5 % (0.2-1.2); Eosinophils Absolute Auto 0.4 K/mm3 (0-0.3); Eosinophils Percent Auto 4.3 % (0-4.4); Hematocrit 35.7 % (37.0-47.0); Hemoglobin 11.3 g/dL (12.0-15.0); Immature Granulocyte Absolute 0.04 K/mm3 (0.00-0.031); Immature Granulocyte Percent A 0.4 % (0-0.5); Lymphocytes Absolute Auto 3.13 K/mm3 (0.9-3.2); Mean Corpuscular HGB Conc 31.7 g/dl (32-36); Mean Corpuscular Hemoglobin 26.5 pg (26-34); Mean Corpuscular Volume 83.8 fl (80-100); Mean Platelet Volume 9.3 fl (7.4-10.4); Monocytes Absolute Auto 0.6 K/mm3 (0.1-0.6); Monocytes Percent Auto 6.7 % (2.6-8.5); Neutrophils Percent Auto 54.1 % (45.5-73.1); Platelet Count Result 316 k/mm3 (150-375); Red Blood Count 4.26 M/mm3 (4.2-5.4); Red Cell Distribution Width 13.2 % (11.5-14.5); White Blood Count 9.2 K/mm3 (4.5-10.0)
[2019-09-16 06:00] LABS: Alanine Aminotransferase 15 U/L (4-35); Albumin Level 3.3 g/dL (3.5-5.1); Alkaline Phosphatase 81 U/L (38-126); Anion Gap 9.8 mmol/L (7-16); Aspartate Amino Transferase 23 U/L (14-36); Bilirubin,Total 0.4 mg/dL (0.2-1.3); Blood Urea Nitrogen 15 mg/dL (7-17); Calcium 9.1 mg/dL (8.4-10.2); Carbon Dioxide 28 mmol/L (22-30); Chloride 102 mmol/L (98-107); Estimated CRCL calculation 42 ml/min; Estimated Glomerular Filt Rate 46; Glucose 102 mg/dL (65-105); Magnesium 1.8 mg/dL (1.6-2.3); Potassium 3.8 mmol/L (3.4-5.0); Sodium 136 mmol/L (137-145)
[2019-09-16] MEDS: amLODIPine BESYLATE 5 MG TABLET PO (08:26)
[2019-09-16] MEDS: carvediloL 25 MG TABLET PO ×2 (08:26→21:11)
--- NOTE | 2019-09-16 08:34 | WPDANESEPP ---
Anes - Eval Pre Procedure Procedure: Operation Date: 09/16/19 12:00 Proposed Procedures p Cystoscopy, Left Ureteroscopy, Left Retrograde Pyelogram, Possible Left Stent Exchange - Carl Parnell MD Date/Time: 09/16/19 08:34 Pre Op Diagnosis: Acute pyelonephritis/renal mass Patient Data Age: 63 Gender: F Height: 5 ft 7 in Weight: 79.3 kg Last Vital Signs Temp 97.4 F L 09/16/19 06:00 Pulse 58 L 09/16/19 08:26 Resp 18 09/16/19 06:00 BP 130/54 L 09/16/19 06:00 Pulse Ox 98 09/16/19 06:00 Allergies Allergy/AdvReac Type Severity Reaction Status Date / Time aspirin Allergy Unknown ITCHING, Verified 09/02/19 16:29 GI UPSET levofloxacin Allergy Unknown Hallucinati Verified 09/02/19 16:29 ons Penicillins Allergy Unknown Unknown- Verified 09/02/19 16:29 CHILD salicylates Allergy Unknown GI UPSET Verified 09/02/19 16:29 carisoprodol AdvReac Unknown Gastrointestinal Verified 09/02/19 16:29 Upset Home Medications Medication Instructions Recorded Confirmed Type acetaminophen [Tylenol] 325 mg PO Q4-6H PRN 04/22/19 09/12/19 History gabapentin 300 mg BID 04/22/19 09/12/19 History amlodipine 5 mg tablet 5 mg PO DAILY #30 tablet 05/14/19 09/12/19 Rx carvedilol 25 mg tablet 25 mg PO Q12H #60 tablet 05/14/19 09/12/19 Rx naproxen 500 mg tablet 500 mg PO BID #60 tablet 05/14/19 09/12/19 Rx losartan 50 mg tablet 50 mg PO DAILY #30 tablet 06/15/19 09/12/19 Rx cyclobenzaprine 10 mg tablet 10 mg PO TID #90 tablet 07/17/19 09/12/19 Rx hydrocodone 5 mg-acetaminophen 325 1 tablet PO Q6-8H PRN #90 tablet 08/18/19 09/12/19 Rx mg tablet cholecalciferol (vitamin D3) 50 mcg PO DAILY 09/12/19 09/12/19 History hydroxyzine HCl 25 mg PO TID PRN 09/12/19 09/12/19 History nitrofurantoin monohyd/m-cryst 100 mg PO BID 09/12/19 09/12/19 History oxybutynin chloride 5 mg PO TID 09/12/19 09/12/19 History Laboratory Tests 09/16/19 09/16/19 05:02 05:02 WBC 9.2 K/mm3 K/mm3 (4.5-10.0) RBC 4.26 M/mm3 M/mm3 (4.2-5.4) Hgb 11.3 g/dL L g/dL (12.0-15.0) Hct 35.7 % L % (37.0-47.0) MCV 83.8 fl fl (80-100) MCH 26.5 pg pg (26-34) MCHC 31.7 g/dl L g/dl (32-36) RDW 13.2 % % (11.5-14.5) Plt Count 316 k/mm3 k/mm3 (150-375) MPV 9.3 fl fl (7.4-10.4) Immature Gran % (Auto) 0.4 % % (0-0.5) Neut % (Auto) 54.1 % % (45.5-73.1) Lymph % (Auto) 34.0 % % (18.3-44.2) Mobile % (Auto) 6.7 % % (2.6-8.5) Eos % (Auto) 4.3 % % (0-4.4) Baso % (Auto) 0.5 % % (0.2-1.2) Lymph # (Auto) 3.13 K/mm3 K/mm3 (0.9-3.2) Mobile # (Auto) 0.6 K/mm3 K/mm3 (0.1-0.6) Eos # (Auto) 0.4 K/mm3 H K/mm3 (0-0.3) Baso # (Auto) 0.1 K/mm3 K/mm3 (0.0-0.1) Abs Immat Gran (auto) 0.04 K/mm3 H K/mm3 (0.00-0.031) Absolute Neuts (auto) 5.0 K/mm3 K/mm3 (1.3-6.7) Absolute Nucleated RBC 0.0 K/mm3 K/mm3 (0.0-0.012) Nucleated RBC % 0.0 % % (0.0-0.2) Sodium 136 mmol/L L mmol/L (137-145) Potassium 3.8 mmol/L mmol/L (3.4-5.0) Chloride 102 mmol/L mmol/L (98-107) Carbon Dioxide 28 mmol/L mmol/L (22-30) Anion Gap 9.8 mmol/L mmol/L (7-16) BUN 15 mg/dL mg/dL (7-17) Creatinine 1.20 mg/dL H mg/dL (0.7-1.0) Estim Creat Clear Calc 42 ml/min ml/min Estimated GFR 46 L (59 - ) Glucose 102 mg/dL mg/dL (65-105) Calcium 9.1 mg/dL mg/dL (8.4-10.2) Magnesium 1.8 mg/dL mg/dL (1.6-2.3) Total Bilirubin 0.4 mg/dL mg/dL (0.2-1.3) AST 23 U/L U/L (14-36) ALT 15 U/L U/L (4-35) Alkaline Phosphatase 81 U/L U/L (38-126) Total Protein 6.0 g/dL L g/dL (6.3-8.2) Albumin 3.3 g/dL L g/dL (3.5-5.1) Patient hx anesthesia problems: none Family hx anesthesia problems: none [facility] Past Medical History Medical History (Updated 09/16/19 @ 08:3
--- NOTE | 2019-09-16 10:42 | PC.NURSE ---
To OR per [ stretcher], IV [ saline locked]. Report given to [ Natalia, RN].
[2019-09-16] MEDS: LACTATED RINGERS 1,000 ML 30 ML IV CONT (11:00)
--- NOTE | 2019-09-16 11:22 | WPDANESEFPP ---
Anes - Eval Final PreProcedure Day of Procedure 09/16/19 11:22 Patient weight: overweight Heart: regular rate and rhythm Lungs: clear to auscultation Airway: Mallampati scale class II Neurological: alert and oriented Last oral intake: >/= 8 hours ASA classification: III Emergent: no Anesthetic plan: proceed Anesthesia type and monitoring: general LMA and standard monitoring Informed Consent: The patient's anesthetic plan and its attendant risks and benefits were discussed with the patient/family/POA. Questions were solicited and answers provided to the satisfaction of the patient/family/POA.
[2019-09-16] MEDS: LIDOCAINE HCL 2% GEL UROJET 10 ML PKG MUCOUS MEM (12:15)
--- NOTE | 2019-09-16 12:40 | P.OP_ITS ---
Procedure Note - Detailed Date of procedure: 09/16/19 Pre-op diagnosis: Acute pyelonephritis/renal mass Left proximal ureteral calculus 6 mm Post-op diagnosis: same Procedure performed: cystoscopy, left retrograde pyelogram, left ureteroscopy with stone extraction, left ureteral stent exchange 4.8 [place] contour Description of procedure: patient was taken to the operative suite and correctly identified. Once anesthesia was obtained she was placed in dorsal lithotomy position and prepped and draped usual sterile fashion. Twenty-two [place]ib[place]ian scope was inserted in the bladder. The stent was visualized. Using a grasper we brought out the meatus and passed a wire through it. The ureteral access sheath was then passed over the wire. Mini flexible ureteral scope was inserted the stone was visualized. Using an escape basket we were able to retrieve the stone and sent it for analysis. Reinspection of the collecting system revealed a couple small fragments in the kidney which were also was extracted. We then did a pyelogram to confirm placement of the stent. A 4.8 contour [place]ian stent was then placed with the proximal end coiled in the renal pelvis and the distal in the bladder. We left a string attached to it. She is taken recovery stable condition. Will plan on removing the stent in a couple days. Anesthesia: GLMA Surgeon: Carl Parnell MD Drains: Yes Packing: No Pathology: yes Complications: No immediate complications Condition: stable Disposition: PACU
--- NOTE | 2019-09-16 13:45 | PC.NURSE ---
Returned from OR per stretcher. Report received from [ MOSES Chisholm].
[2019-09-16] MEDS: DOCUSATE SODIUM 100 MG CAPSULE PO ×2 (13:52→21:11)
[2019-09-16] MEDS: CYCLOBENZAPRINE HCL 10 MG TABLET PO ×2 (13:52→16:52)
[2019-09-16] MEDS: MIRABEGRON 25 MG ER TABLET PO (13:52)
--- NOTE | 2019-09-16 13:58 | PM.IMPN ---
Progress Note: A&P Assessment and Plan (1) Left renal stone: Code(s): N20.0 - Calculus of kidney Status: Acute Assessment and Plan: patient underwent a cystoscopy, left retrograde pyelogram, left uteroscopy with stone extraction, left ureteral stent exchange today by Dr. Parnell patient will have stent placed to for a few days as per urology will continue monitor the patient overnight and see what Urology wants to do further as an outpatient (2) Bladder spasm: Code(s): N32.89 - Other specified disorders of bladder Status: Acute Assessment and Plan: She is having bladder spasms; Myrbetric was recommended and started 09/12 but not giving much relief. She was recently started on oxybutinin by urology outpatient for similar symptoms. urology started Levsin last night with some improvement. She reporting just slight pressure to her suprapubic area at this time. Appreciate further input from urology. (3) Nephrolithiasis: Code(s): N20.0 - Calculus of kidney Status: Acute Assessment and Plan: Recently had left 4mm ureteral calculus and underwent ESWL with left ureteral stent placement by Dr Parnell 09/03. Abdominal CT shows nonobstructing right renal calculi with mild right hydronephrosis, left ureteral stent. She is not having any pain at this time. (4) Cholelithiasis: Qualifiers: Biliary obstruction: without biliary obstruction Cholecystitis presence: without cholecystitis Cholelithiasis location: gallbladder Qualified Code(s): K80.20 - Calculus of gallbladder without cholecystitis without obstruction Code(s): K80.20 - Calculus of gallbladder without cholecystitis without obstruction Status: Acute Assessment and Plan: She does have some right upper quadrant tenderness. CT abdomen shows cholelithiasis without evidence of cholecystitis. She may benefit from outpatient surgery follow up in the future, not suspected to be the cause of her acute symptoms. Bili and LFTs are within normal limits. 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 (6) Essential (primary) hypertension: Code(s): I10 - Essential (primary) hypertension Status: Chronic Assessment and Plan: BP stable on home norvasc and coreg. Losartan was held due to elevated creatinine and BPs have been stable without it. Monitor BPs and adjust treatment as needed. (7) NELLY (acute kidney injury): Code(s): N17.9 - Acute kidney failure, unspecified Status: Acute Assessment and Plan: Improved with IV hydration. Stop IV fluids. Avoid nephrotoxic agents and monitor renal function. (8) Dizziness: Code(s): R42 - Dizziness and giddiness Status: Acute Assessment and Plan: May be related to infection/mild dehydration, may be related to pain medications? Will try adjusting her pain regimen. CT brain is normal. Vitals are stable. Offered cartoid dopplers but she wishes to try adjusting pain regimen first and coming off the dilaudid to see if that helps dizziness first. Time Spent With Patient Time with patient: 25 - 35 minutes Subjective Date/time seen: 09/16/19 13:58 Interval history: date of service 09/16/2019: patient reports feeling better after her procedure with Urology. She denies any pain other than slight pressure to her suprapubic area. The patient does report some more spotty vision and some lightheadedness. she denies any dizziness or syncope. She states this has been going on intermittently while she has been here in the hospital. She denie
[2019-09-16] MEDS: OXYBUTYNIN CHLORIDE 5 MG TABLET PO (16:52)
[2019-09-16] MEDS: GABAPENTIN 300 MG CAPSULE BY MOUTH (16:52)
[2019-09-16] MEDS: HYOSCYAMINE SULFATE 0.125 MG TABLET PO (16:59)
[2019-09-17] MEDS: HYOSCYAMINE SULFATE 0.125 MG TABLET PO (01:36)
[2019-09-17 05:31] LABS: Hematocrit 34.9 % (37.0-47.0); Hemoglobin 11.2 g/dL (12.0-15.0); Mean Corpuscular HGB Conc 32.1 g/dl (32-36); Mean Corpuscular Hemoglobin 26.9 pg (26-34); Mean Corpuscular Volume 83.7 fl (80-100); Mean Platelet Volume 9.6 fl (7.4-10.4); Platelet Count Result 332 k/mm3 (150-375); Red Blood Count 4.17 M/mm3 (4.2-5.4); Red Cell Distribution Width 13.2 % (11.5-14.5); White Blood Count 14.5 K/mm3 (4.5-10.0)
[2019-09-17 05:54] LABS: Blood Urea Nitrogen 13 mg/dL (7-17); Calcium 9.3 mg/dL (8.4-10.2); Carbon Dioxide 26 mmol/L (22-30); Chloride 104 mmol/L (98-107); Estimated CRCL calculation 42 ml/min; Estimated Glomerular Filt Rate 46; Glucose 185 mg/dL (65-105); Sodium 136 mmol/L (137-145)
[2019-09-17 06:00] VITALS: BP 128/60; PULSE 83; RESP 12; TEMP 36.6; O2SAT 98
[2019-09-17] MEDS: OXYBUTYNIN CHLORIDE 5 MG TABLET PO ×3 (07:45→17:08)
[2019-09-17] MEDS: amLODIPine BESYLATE 5 MG TABLET PO (07:45)
[2019-09-17 07:46] VITALS: PULSE 80
[2019-09-17] MEDS: carvediloL 25 MG TABLET PO ×2 (07:46→20:35)
[2019-09-17] MEDS: CYCLOBENZAPRINE HCL 10 MG TABLET PO ×3 (07:46→17:08)
[2019-09-17] MEDS: MIRABEGRON 25 MG ER TABLET PO (07:46)
[2019-09-17] MEDS: GABAPENTIN 300 MG CAPSULE BY MOUTH ×2 (07:46→17:08)
[2019-09-17] MEDS: DOCUSATE SODIUM 100 MG CAPSULE PO ×2 (07:46→20:35)
[2019-09-17 09:59] VITALS: BP 119/52; PULSE 86; RESP 15; TEMP 36.6; O2SAT 94
--- NOTE | 2019-09-17 11:42 | WPDUROPN2 ---
Progress Note: A&P Assessment and Plan (1) Left renal stone: Code(s): N20.0 - Calculus of kidney Status: Acute Assessment and Plan: Will continue to monitor, no plans to intervene at this time. (2) Bladder spasm: Code(s): N32.89 - Other specified disorders of bladder Status: Acute Assessment and Plan: D/t ongoing spasming and pain, patient is not tolerating her stent, it was removed at the bedside this morning. No difficulty, patient tolerated well. (3) NELLY (acute kidney injury): Code(s): N17.9 - Acute kidney failure, unspecified Status: Acute Assessment and Plan: Will likely resolve now that stone and stent have been removed. (4) Leukocytosis: Code(s): D72.829 - Elevated white blood cell count, unspecified Status: Acute Assessment and Plan: Likely in relation to yesterday's procedure, I instructed patient that she will most likely stay another day to ensure this is trending downward tomorrow. (5) Left ureteral stone: Code(s): N20.1 - Calculus of ureter Status: Acute Assessment and Plan: Removed yesterday. Subjective Subjective Date/Time Seen: 09/17/19 11:42 POD #1 Cystsocopy, left ureteroscopy with stent exchange and stone removal, left retrograde pyelogram. Patient is c/o pain 8/10 today, dysuria and bladder spasms continued. Review of Systems Cardiovascular: Cardiovascular: Denies chest pain Respiratory: Respiratory: Reports no additional respiratory complaints Gastrointestinal: Gastrointestinal: Reports abdominal pain, Denies nausea and Denies vomiting Genitourinary: Genitourinary: Reports dysuria and Denies flank pain Exam Resp: Effort & Inspection: normal respiratory effort Cardio: Rate: regular rate GI: GI Palp: Yes Soft to palpation and Yes Tenderness to palpation present (GI) : General: Yes no CVA tenderness Other: left stent string is taped in place to abdomen, left stent was removed at the bedside today. Patient tolerated well, no difficulty with removal. Extrem: General: no edema Objective Data Vital Signs Vital Signs: Vital Signs - 24 hr 09/16/19 12:44 09/16/19 12:55 09/16/19 13:10 Temperature 97.0 F L Pulse Rate 65 65 69 Respiratory Rate 14 16 14 Blood Pressure 116/60 123/58 L 133/61 Pulse Oximetry 100 96 100 09/16/19 13:25 09/16/19 13:35 09/16/19 13:45 Temperature 96.4 F L Pulse Rate 67 67 66 Respiratory Rate 12 16 17 Blood Pressure 138/68 121/61 126/62 Pulse Oximetry 98 95 93 09/16/19 13:59 09/16/19 14:00 09/16/19 14:03 Temperature 96.5 F L 96.6 F L Pulse Rate 62 64 Respiratory Rate 19 18 Blood Pressure 124/50 L 131/68 131/72 Pulse Oximetry 94 93 09/16/19 14:05 09/16/19 15:30 09/16/19 18:00 Temperature 97.7 F 96.9 F L Pulse Rate 71 61 Respiratory Rate 18 16 Blood Pressure 130/71 132/70 130/61 Pulse Oximetry 98 99 09/16/19 20:00 09/16/19 21:11 09/16/19 22:00 Temperature 97.8 F Pulse Rate 61 78 89 Respiratory Rate 16 12 Blood Pressure 132/64 Pulse Oximetry 99 94 09/17/19 06:00 09/17/19 07:46 09/17/19 09:59 Temperature 97.8 F 98 F Pulse Rate 83 80 86 Respiratory Rate 12 15 Blood Pressure 128/60 119/52 L Pulse Oximetry 98 94 Intake/Output Intake/Output: Intake & Output 09/14/19 09/15/19 09/16/19 09/17/19 23:59 23:59 23:59 23:59 Intake Total 2910 1600 930 640 Output Total 6119 494 1000 600 Balance 1160 800 -770 40 Meds/Results Medications: Active Medications Generic Name Dose Route Start Last Admin Trade Name Freq PRN Reason Stop Dose Admin Acetaminophen 650 mg 09/15/19 10:27 Tylenol Tablet PO Q4H PRN Pain Rated 5 or Less Hydrocodone Bitart/Acetaminophen 1 tab 09/15/19 10:27 09/17/19 07:40 Scarbro 7.5-325 Mg PO 1 tab Q6H PRN Administration Pain Rated 6 or Greater Amlodipine Besylate 5 mg 09/13/19 09:00 09/17/19 07:45 Norvasc PO 5 mg DAILY ARCADIO Administration Carve
[2019-09-17] MEDS: MORPHINE SULFATE 2 MG/ML INJ 1 MG IV PUSH (11:48)
--- NOTE | 2019-09-17 12:46 | WPDANESPN ---
Anes - Prog Note Post-Op Date/Time: 09/17/19 12:46 Cardiovascular status: normal Respiratory status: normal Airway patency: baseline Mental status: baseline Post-Op hydration status: normal Vital Signs: Last Vital Signs Temp 36.6 C 09/17/19 09:59 Pulse 86 09/17/19 09:59 Resp 15 09/17/19 09:59 BP 119/52 L 09/17/19 09:59 Pulse Ox 94 09/17/19 09:59 I/O: Intake & Output 09/16/19 09/17/19 09/17/19 23:59 07:59 15:59 Intake Total 930 400 240 Output Total 800 600 Balance 130 -200 240 Laboratory Tests 09/17/19 05:16 09/17/19 05:16 09/17/19 09/17/19 05:16 05:16 WBC 14.5 H RBC 4.17 L Hgb 11.2 L Hct 34.9 L MCV 83.7 MCH 26.9 MCHC 32.1 RDW 13.2 Plt Count 332 MPV 9.6 Sodium 136 L Potassium 4.0 Chloride 104 Carbon Dioxide 26 Anion Gap 10.0 BUN 13 Creatinine 1.20 H Estim Creat Clear Calc 42 Estimated GFR 46 L Glucose 185 H Calcium 9.3 Post-procedural complaints: none Patient Feedback: Patient satisfied with anesthetic care.
[2019-09-17 14:58] VITALS: BP 139/69; PULSE 80; RESP 14; TEMP 36.7; O2SAT 98
[2019-09-17] MEDS: polyethylene glycoL 3350 17 GM POWD.PACK PO (15:04)
--- NOTE | 2019-09-17 15:13 | P.PNIM_ITS ---
Progress Note: A&P Assessment and Plan (1) Left renal stone: Code(s): N20.0 - Calculus of kidney Status: Acute Assessment and Plan: patient underwent a cystoscopy, left retrograde pyelogram, left uteroscopy w ith stone extraction, left ureteral stent exchange today by Dr. Parnell * Patient's stent that was placed on 09/16/2019 after her procedure was removed today by the urology nurse practitioner due to her increased discomfort. * She still having some suprapubic discomfort at this time as well as left- sided flank pain. Increased pain does cause her to have some nausea but denies any vomiting. * Urology feels comfortable with her being discharged whenever stable from medicine standpoint. will continue monitor the patient overnight and see what Urology wants to do further as an outpatient (2) Bladder spasm: Code(s): N32.89 - Other specified disorders of bladder Status: Acute Assessment and Plan: * She is having bladder spasms; Myrbetric was recommended and started 09/12 but not giving much relief. She was recently started on oxybutinin by urology outpatient for similar symptoms. * urology started Levsin with some improvement. * She reporting just slight pressure to her suprapubic area at this time. Appreciate further input from urology. (3) Nephrolithiasis: Code(s): N20.0 - Calculus of kidney Status: Acute Assessment and Plan: * Recently had left 4mm ureteral calculus and underwent ESWL with left ureteral stent placement by Dr Parnell 09/03. * Abdominal CT shows nonobstructing right renal calculi with mild right hydronephrosis, left ureteral stent. * She does report some suprapubic discomfort as well as left side and flank pain. (4) Cholelithiasis: Qualifiers: Cholelithiasis location: gallbladder Cholecystitis presence: without cholecystitis Biliary obstruction: without biliary obstruction Qualified Code(s): K80.20 - Calculus of gallbladder without cholecystitis without obstruction Code(s): K80.20 - Calculus of gallbladder without cholecystitis without obstruction Status: Acute Assessment and Plan: * She does have some right upper quadrant tenderness. CT abdomen shows cholelithiasis without evidence of cholecystitis. * She may benefit from outpatient surgery follow up in the future, not suspected to be the cause of her acute symptoms. Bili and LFTs are within normal limits. 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 (6) Essential (primary) hypertension: Code(s): I10 - Essential (primary) hypertension Status: Chronic Assessment and Plan: * BP stable on home norvasc and coreg. Losartan was held due to elevated creati nine and BPs have been stable without it. * Monitor BPs and adjust treatment as needed. (7) NELLY (acute kidney injury): Code(s): N17.9 - Acute kidney failure, unspecified Status: Acute Assessment and Plan: * Creatinine is stable at 1.2. * Improved with IV hydration. Stop IV fluids. Avoid nephrotoxic agents and monitor renal function. (8) Dizziness: Code(s): R42 - Dizziness and giddiness Status: Acute Assessment and Plan: Patient reports intermitten
--- NOTE | 2019-09-17 15:13 | PM.IMPN ---
Progress Note: A&P Assessment and Plan (1) Left renal stone: Code(s): N20.0 - Calculus of kidney Status: Acute Assessment and Plan: patient underwent a cystoscopy, left retrograde pyelogram, left uteroscopy with stone extraction, left ureteral stent exchange today by Dr. Parnell Patient's stent that was placed on 09/16/2019 after her procedure was removed today by the urology nurse practitioner due to her increased discomfort. She still having some suprapubic discomfort at this time as well as left-sided flank pain. Increased pain does cause her to have some nausea but denies any vomiting. Urology feels comfortable with her being discharged whenever stable from medicine standpoint. will continue monitor the patient overnight and see what Urology wants to do further as an outpatient (2) Bladder spasm: Code(s): N32.89 - Other specified disorders of bladder Status: Acute Assessment and Plan: She is having bladder spasms; Myrbetric was recommended and started 09/12 but not giving much relief. She was recently started on oxybutinin by urology outpatient for similar symptoms. urology started Levsin with some improvement. She reporting just slight pressure to her suprapubic area at this time. Appreciate further input from urology. (3) Nephrolithiasis: Code(s): N20.0 - Calculus of kidney Status: Acute Assessment and Plan: Recently had left 4mm ureteral calculus and underwent ESWL with left ureteral stent placement by Dr Parnell 09/03. Abdominal CT shows nonobstructing right renal calculi with mild right hydronephrosis, left ureteral stent. She does report some suprapubic discomfort as well as left side and flank pain. (4) Cholelithiasis: Qualifiers: Cholelithiasis location: gallbladder Cholecystitis presence: without cholecystitis Biliary obstruction: without biliary obstruction Qualified Code(s): K80.20 - Calculus of gallbladder without cholecystitis without obstruction Code(s): K80.20 - Calculus of gallbladder without cholecystitis without obstruction Status: Acute Assessment and Plan: She does have some right upper quadrant tenderness. CT abdomen shows cholelithiasis without evidence of cholecystitis. She may benefit from outpatient surgery follow up in the future, not suspected to be the cause of her acute symptoms. Bili and LFTs are within normal limits. 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 (6) Essential (primary) hypertension: Code(s): I10 - Essential (primary) hypertension Status: Chronic Assessment and Plan: BP stable on home norvasc and coreg. Losartan was held due to elevated creatinine and BPs have been stable without it. Monitor BPs and adjust treatment as needed. (7) NELLY (acute kidney injury): Code(s): N17.9 - Acute kidney failure, unspecified Status: Acute Assessment and Plan: Creatinine is stable at 1.2. Improved with IV hydration. Stop IV fluids. Avoid nephrotoxic agents and monitor renal function. (8) Dizziness: Code(s): R42 - Dizziness and giddiness Status: Acute Assessment and Plan: Patient reports intermittent dizziness and spotty vision changes. May be related to infection/mild dehydration, may be related to pain medications? CT brain is normal. Her neuro examination is normal without any focal weakness, headaches, slurred speech, confusion, or any other symptoms. Vitals are stable. Offered cartoid dopplers and MRI for further evaluation and workup but she wishes to try adjusting pain regim
[2019-09-17] MEDS: PANTOPRAZOLE 40 MG TABLET PO ×2 (17:08→20:35)
[2019-09-17] MEDS: ACETAMINOPHEN 325 MG TABLET 650 MG PO (17:11)
[2019-09-17 20:35] VITALS: PULSE 86
[2019-09-18] MEDS: ACETAMINOPHEN 325 MG TABLET 650 MG PO ×5 (00:02→23:56)
[2019-09-18 01:00] VITALS: BP 104/53; PULSE 67; RESP 18; TEMP 35.6; O2SAT 97
[2019-09-18 05:36] LABS: Basophils Absolute Auto 0.1 K/mm3 (0.0-0.1); Basophils Percent Auto 0.3 % (0.2-1.2); Eosinophils Absolute Auto 0.2 K/mm3 (0-0.3); Eosinophils Percent Auto 1.2 % (0-4.4); Hematocrit 33.4 % (37.0-47.0); Hemoglobin 10.7 g/dL (12.0-15.0); Immature Granulocyte Absolute 0.09 K/mm3 (0.00-0.031); Immature Granulocyte Percent A 0.6 % (0-0.5); Lymphocytes Absolute Auto 3.98 K/mm3 (0.9-3.2); Lymphocytes Percent Auto 26.1 % (18.3-44.2); Mean Corpuscular Volume 84.3 fl (80-100); Mean Platelet Volume 9.7 fl (7.4-10.4); Monocytes Absolute Auto 0.7 K/mm3 (0.1-0.6); Monocytes Percent Auto 4.7 % (2.6-8.5); Neutrophils Absolute Auto 10.2 K/mm3 (1.3-6.7); Neutrophils Percent Auto 67.1 % (45.5-73.1); Platelet Count Result 325 k/mm3 (150-375); Red Blood Count 3.96 M/mm3 (4.2-5.4); Red Cell Distribution Width 13.6 % (11.5-14.5); White Blood Count 15.2 K/mm3 (4.5-10.0)
[2019-09-18 05:54] LABS: Anion Gap 7.8 mmol/L (7-16); Blood Urea Nitrogen 21 mg/dL (7-17); Calcium 8.9 mg/dL (8.4-10.2); Carbon Dioxide 29 mmol/L (22-30); Chloride 102 mmol/L (98-107); Estimated CRCL calculation 42 ml/min; Estimated Glomerular Filt Rate 46; Glucose 96 mg/dL (65-105); Potassium 3.8 mmol/L (3.4-5.0); Sodium 135 mmol/L (137-145)
[2019-09-18 05:59] VITALS: BP 98/59; PULSE 65; RESP 18; TEMP 35.5; O2SAT 95
[2019-09-18] MEDS: OXYBUTYNIN CHLORIDE 5 MG TABLET PO ×3 (09:09→16:10)
[2019-09-18] MEDS: CYCLOBENZAPRINE HCL 10 MG TABLET PO ×3 (09:09→16:10)
[2019-09-18] MEDS: DOCUSATE SODIUM 100 MG CAPSULE PO ×2 (09:09→21:03)
[2019-09-18] MEDS: GABAPENTIN 300 MG CAPSULE BY MOUTH ×2 (09:09→16:10)
[2019-09-18 09:10] VITALS: PULSE 64
[2019-09-18] MEDS: polyethylene glycoL 3350 17 GM POWD.PACK PO (09:10)
[2019-09-18] MEDS: PANTOPRAZOLE 40 MG TABLET PO ×2 (09:10→21:03)
[2019-09-18] MEDS: MIRABEGRON 25 MG ER TABLET PO (09:10)
[2019-09-18] MEDS: carvediloL 25 MG TABLET PO ×2 (09:10→21:03)
[2019-09-18] MEDS: amLODIPine BESYLATE 5 MG TABLET PO (09:10)
[2019-09-18] MEDS: HYOSCYAMINE SULFATE 0.125 MG TABLET PO (09:17)
--- NOTE | 2019-09-18 11:22 | PCNWS ---
Weekly nutritional screen. Patient is tolerating current diet with adequate intake. No weight loss reported. No nutritional needs at this time.
[2019-09-18 13:00] VITALS: BP 113/58; PULSE 65; RESP 16; TEMP 36.6; O2SAT 98
[2019-09-18 14:11] LABS: Add Urine Microscopic? YES; Appearance Urine Clear (Clear); Bilirubin Urine Negative (Negative); Blood Urine 2+ (Negative); Color Urine Straw (Yellow); Glucose Urine UA Negative (Negative); Ketones Urine Negative (Negative); Leukocyte Esterase Ur Trace LEU/UL (Negative); Nitrate Urine Negative (Negative); Protein Urine Negative (Negative); Squamous Epithelial Cell Urine Few /hpf (Few); Urobilinogen Urine Negative mg/dL (<2.0)
--- NOTE | 2019-09-18 15:57 | PM.IMPN ---
Progress Note: A&P Assessment and Plan (1) Left renal stone: Code(s): N20.0 - Calculus of kidney Status: Acute Assessment and Plan: patient underwent a cystoscopy, left retrograde pyelogram, left uteroscopy with stone extraction, left ureteral stent exchange today by Dr. Parnell On 09/16/2019 Patient's stent that was placed on 09/16/2019 after her procedure she was having continued discomfort and the stent was removed by the urology nurse practitioner on 09/17/2019 She still having some suprapubic discomfort, along with other urinary symptoms. She also had elevation of her white blood cell count so I ordered a urinalysis to be completed with reflux culture. I called Dr. Parnell urologist to recommended starting her on Bactrim for 3 days based on her symptoms. will also check urinalysis with reflux culture to see if any other infection is found who will continue monitoring the patient overnight based on her symptoms and leukocytosis and see how she is feeling in the morning. Urology feels comfortable with her being discharged whenever stable from medicine standpoint. will continue monitor the patient overnight and see what Urology wants to do further as an outpatient (2) Bladder spasm: Code(s): N32.89 - Other specified disorders of bladder Status: Acute Assessment and Plan: She is having bladder spasms; Myrbetric was recommended and started / but not giving much relief. She was recently started on oxybutinin by urology outpatient for similar symptoms. urology started Levsin with some improvement. She Continues to have pressure to her suprapubic area at this time. [facility] nurse practitioner states this is normal after procedures to have suprapubic discomfort for a few days. She can always follow up in the office with them if she continues have issues. Appreciate further input from urology. (3) Nephrolithiasis: Code(s): N20.0 - Calculus of kidney Status: Acute Assessment and Plan: Recently had left 4mm ureteral calculus and underwent ESWL with left ureteral stent placement by Dr Parnell 09/03. Abdominal CT shows nonobstructing right renal calculi with mild right hydronephrosis, left ureteral stent. She is not having any more flank pain at this time. (4) Cholelithiasis: Qualifiers: Cholelithiasis location: gallbladder Cholecystitis presence: without cholecystitis Biliary obstruction: without biliary obstruction Qualified Code(s): K80.20 - Calculus of gallbladder without cholecystitis without obstruction Code(s): K80.20 - Calculus of gallbladder without cholecystitis without obstruction Status: Acute Assessment and Plan: She does have some right upper quadrant tenderness. CT abdomen shows cholelithiasis without evidence of cholecystitis. She may benefit from outpatient surgery follow up in the future, not suspected to be the cause of her acute symptoms. Bili and LFTs are within normal limits. 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 (6) Essential (primary) hypertension: Code(s): I10 - Essential (primary) hypertension Status: Chronic Assessment and Plan: BP stable on home norvasc and coreg. Losartan was held due to elevated creatinine and BPs have been stable without it. Monitor BPs and adjust treatment as needed. (7) NELLY (acute kidney injury): Code(s): N17.9 - Acute kidney failure, unspecified Status: Acute Assessment and Plan: Creatinine is stable at 1.2. Avoid nephrotoxic agents and monitor renal function. (8) Dizziness:
[2019-09-18] MEDS: SACCHAROMYCES BOULARDII 250 MG CAPSULE PO (16:10)
[2019-09-18] MEDS: BISACODYL 10 MG SUPPOSITORY RECTAL (18:03)
[2019-09-18 21:00] VITALS: BP 118/60; PULSE 65; RESP 20; TEMP 36.1; O2SAT 98
[2019-09-18 21:03] VITALS: PULSE 66
[2019-09-19] MEDS: HYOSCYAMINE SULFATE 0.125 MG TABLET PO (04:59)
[2019-09-19 05:00] VITALS: BP 104/48; PULSE 69; RESP 16; TEMP 36.8; O2SAT 96
[2019-09-19 05:34] LABS: Basophils Absolute Auto 0.1 K/mm3 (0.0-0.1); Basophils Percent Auto 0.4 % (0.2-1.2); Eosinophils Absolute Auto 0.4 K/mm3 (0-0.3); Eosinophils Percent Auto 3.6 % (0-4.4); Hematocrit 33.3 % (37.0-47.0); Hemoglobin 10.6 g/dL (12.0-15.0); Immature Granulocyte Absolute 0.06 K/mm3 (0.00-0.031); Immature Granulocyte Percent A 0.5 % (0-0.5); Lymphocytes Percent Auto 28.8 % (18.3-44.2); Mean Corpuscular HGB Conc 31.8 g/dl (32-36); Mean Corpuscular Volume 84.9 fl (80-100); Mean Platelet Volume 9.8 fl (7.4-10.4); Monocytes Absolute Auto 0.7 K/mm3 (0.1-0.6); Monocytes Percent Auto 5.8 % (2.6-8.5); Neutrophils Absolute Auto 7.2 K/mm3 (1.3-6.7); Neutrophils Percent Auto 60.9 % (45.5-73.1); Platelet Count Result 296 k/mm3 (150-375); Red Blood Count 3.92 M/mm3 (4.2-5.4); Red Cell Distribution Width 13.7 % (11.5-14.5); White Blood Count 11.8 K/mm3 (4.5-10.0)
[2019-09-19 05:44] LABS: Anion Gap 7 mmol/L (8-16); Blood Urea Nitrogen 22 mg/dL (7-17); Calcium 8.8 mg/dL (8.4-10.2); Carbon Dioxide 26 mmol/L (22-30); Chloride 105 mmol/L (98-107); Estimated CRCL calculation 36 ml/min; Estimated Glomerular Filt Rate 38; Glucose 117 mg/dL (65-105); Magnesium 1.9 mg/dL (1.6-2.3); Sodium 138 mmol/L (137-145)
[2019-09-19] MEDS: ACETAMINOPHEN 325 MG TABLET 650 MG PO ×4 (06:22→23:47)
[2019-09-19] MEDS: ONDANSETRON INJ 4 MG/2 ML VIAL IV PUSH ×2 (06:22→14:54)
[2019-09-19] MEDS: SODIUM CHLORIDE 0.9% IV 500 ML IV CONT (07:56)
[2019-09-19 08:45] VITALS: PULSE 72
[2019-09-19] MEDS: CYCLOBENZAPRINE HCL 10 MG TABLET PO ×3 (08:45→17:59)
[2019-09-19] MEDS: amLODIPine BESYLATE 5 MG TABLET PO (08:45)
[2019-09-19] MEDS: GABAPENTIN 300 MG CAPSULE BY MOUTH ×2 (08:45→17:59)
[2019-09-19] MEDS: carvediloL 25 MG TABLET PO ×2 (08:45→20:43)
[2019-09-19] MEDS: MIRABEGRON 25 MG ER TABLET PO (08:45)
[2019-09-19] MEDS: DOCUSATE SODIUM 100 MG CAPSULE PO ×2 (08:45→20:44)
[2019-09-19] MEDS: SACCHAROMYCES BOULARDII 250 MG CAPSULE PO ×2 (08:46→17:59)
[2019-09-19] MEDS: polyethylene glycoL 3350 17 GM POWD.PACK PO ×2 (08:46→14:51)
[2019-09-19] MEDS: OXYBUTYNIN CHLORIDE 5 MG TABLET PO (08:46)
[2019-09-19] MEDS: PANTOPRAZOLE 40 MG TABLET PO ×2 (08:46→20:43)
--- NOTE | 2019-09-19 08:49 | PC.NURSE ---
Patient c/o continued dizziness and seeing stars at times when up walking. Discussing with Lexis OATES at this time. No neuro deficits noted on exam.
--- NOTE | 2019-09-19 08:57 | PM.IMPN ---
Progress Note: A&P Assessment and Plan (1) Urinary tract infection symptoms: Code(s): R39.9 - Unspecified symptoms and signs involving the genitourinary system Status: Acute Assessment and Plan: patient was having some urinary tract symptoms after having a cystoscopy and stent removal. I talked to urologist, Dr. Parnell who recommended starting her on oral Bactrim for 3 days I ordered a urinalysis which was abnormal showing trace leukocyte esterase, wbc's 10-15 and it refluxed into a culture. She continues to have urinary symptoms today with dysuria, frequent urination, hesitancy with urination in the feeling of not completely emptying her bladder her postvoid residual yesterday was normal without any signs of retaining urine urine culture is pending at this time and due to continued symptoms I would like to wait for the urine culture to return before discharging the patient home leukocytosis is improving after starting Bactrim yesterday but still slightly elevated 11,000. continue monitoring patient's symptoms and continue antibiotics with Bactrim. (2) Vision changes: Code(s): H53.9 - Unspecified visual disturbance Status: Acute Assessment and Plan: The patient has been complaining intermittently of some vision changes, trouble focusing and when looking at small font on her phone as well as seen some blurry specks in her vision at times. she had been asked about getting a carotid Doppler ultrasound as well as an MRI but she had refused both of these stating that she thinks it is a side effect from 1 of the medications. She continues to have vision changes intermittently while she is here and she is in agreement now at this time to get an MRI of her brain to further rule out any acute stroke or abnormality causing these changes. Her neuro examination is completely normal without any signs of a stroke. Physical and occupational therapy evaluated the patient and felt that she was at her baseline and discontinued any further therapy continue monitoring patient's symptoms and See what MRI shows (3) Dizziness: Code(s): R42 - Dizziness and giddiness Status: Acute Assessment and Plan: Patient reports intermittent dizziness and spotty vision changes. May be related to infection/mild dehydration, may be related to pain medications? CT brain is normal. Her neuro examination is normal without any focal weakness, headaches, slurred speech, confusion, or any other symptoms. Vitals are stable. She will have the MRI completed at this time due to continued symptoms. continue monitoring patient's symptoms (4) Left renal stone: Code(s): N20.0 - Calculus of kidney Status: Acute Assessment and Plan: patient underwent a cystoscopy, left retrograde pyelogram, left uteroscopy with stone extraction, left ureteral stent exchange today by Dr. Parnell On 09/16/2019 Patient's stent that was placed on 09/16/2019 after her procedure she was having continued discomfort and the stent was removed by the urology nurse practitioner on 09/17/2019 She still having some suprapubic discomfort, along with other urinary symptoms. She also had elevation of her white blood cell count so I ordered a urinalysis to be completed with reflux culture. I called Dr. Parnell urologist to recommended starting her on Bactrim for 3 days based on her symptoms. will also check urinalysis with reflux culture to see if any other infection is found Urology feels comfortable with her being discharged whenever stable from medicine standpoint. will continue monitor the patient overnight and see what Urology wants to do further as an outpatient (5) Bladder spasm: Code(s): N32.89 - Other specified disorders of jose de jesus
[2019-09-19 13:11] VITALS: BP 120/66
--- NOTE | 2019-09-19 13:26 | PC.NURSE ---
Patient c/o feeling dizzy and fatigued. C/O feeling weak when ambulating in hallways. Has now received fleets enema with results of small amount of clear liquid and gas. Called Blanca OATES to discuss all of the above. Orders received to d/c Oxybuynin and repeat Miralax this afternoon if patient doesnt experience further results from fleets enema.
[2019-09-19 14:00] VITALS: BP 100/48; PULSE 69; RESP 18; TEMP 36.2; O2SAT 99
[2019-09-19 20:43] VITALS: PULSE 68
[2019-09-19 22:00] VITALS: BP 116/54; PULSE 74; RESP 20; TEMP 36.2; O2SAT 95
[2019-09-20] MEDS: HYOSCYAMINE SULFATE 0.125 MG TABLET PO (02:41)
[2019-09-20 05:12] LABS: Hemoglobin 10.2 g/dL (12.0-15.0); Mean Corpuscular HGB Conc 31.9 g/dl (32-36); Mean Corpuscular Hemoglobin 27.2 pg (26-34); Mean Corpuscular Volume 85.3 fl (80-100); Mean Platelet Volume 9.8 fl (7.4-10.4); Platelet Count Result 284 k/mm3 (150-375); Red Blood Count 3.75 M/mm3 (4.2-5.4); Red Cell Distribution Width 13.7 % (11.5-14.5); White Blood Count 9.7 K/mm3 (4.5-10.0)
[2019-09-20] MEDS: BISACODYL 10 MG SUPPOSITORY RECTAL (05:12)
[2019-09-20] MEDS: ACETAMINOPHEN 325 MG TABLET 650 MG PO ×3 (05:12→17:45)
[2019-09-20 05:27] LABS: Anion Gap 4 mmol/L (8-16); Blood Urea Nitrogen 19 mg/dL (7-17); Calcium 8.7 mg/dL (8.4-10.2); Carbon Dioxide 28 mmol/L (22-30); Chloride 104 mmol/L (98-107); Estimated CRCL calculation 34 ml/min; Estimated Glomerular Filt Rate 35; Glucose 93 mg/dL (65-105); Potassium 4.1 mmol/L (3.4-5.0); Sodium 136 mmol/L (137-145)
[2019-09-20 06:00] VITALS: BP 108/54; PULSE 69; RESP 20; TEMP 36.2; O2SAT 98
[2019-09-20 09:53] VITALS: PULSE 82
[2019-09-20] MEDS: carvediloL 25 MG TABLET PO ×2 (09:53→20:22)
[2019-09-20] MEDS: CYCLOBENZAPRINE HCL 10 MG TABLET PO ×3 (09:53→16:30)
[2019-09-20] MEDS: amLODIPine BESYLATE 5 MG TABLET PO (09:53)
[2019-09-20] MEDS: DOCUSATE SODIUM 100 MG CAPSULE PO ×2 (09:53→20:22)
[2019-09-20] MEDS: MIRABEGRON 25 MG ER TABLET PO (09:54)
[2019-09-20] MEDS: GABAPENTIN 300 MG CAPSULE BY MOUTH ×2 (09:54→16:30)
[2019-09-20] MEDS: SACCHAROMYCES BOULARDII 250 MG CAPSULE PO ×2 (09:54→16:30)
[2019-09-20] MEDS: PANTOPRAZOLE 40 MG TABLET PO ×2 (09:54→20:22)
[2019-09-20] MEDS: polyethylene glycoL 3350 17 GM POWD.PACK PO ×3 (09:54→20:22)
[2019-09-20] MEDS: MINERAL OIL 30 ML UDC 15 ML PO (10:00)
[2019-09-20] MEDS: ONDANSETRON INJ 4 MG/2 ML VIAL IV PUSH (10:42)
[2019-09-20 14:00] VITALS: BP 122/61; PULSE 72; RESP 16; TEMP 36.5; O2SAT 95
--- NOTE | 2019-09-20 16:17 | PM.IMPN ---
Progress Note: A&P Assessment and Plan (1) Constipation: Code(s): K59.00 - Constipation, unspecified Status: Acute Assessment and Plan: the patient has not had a bowel movement since admission and we have given her multiple doses of MiraLax, Colace, to enemas, to suppositories, mineral oil p.o. without any improvement over constipation. KUB shows mild to moderate constipation otherwise no acute findings Or obstructive bowel gas pattern. Plans increase MiraLax to q.i.d. and give Dulcolax p.o. to help with constipation will continue monitoring the patient's symptoms and giving her medications to help with her constipation symptoms. (2) Urinary tract infection symptoms: Code(s): R39.9 - Unspecified symptoms and signs involving the genitourinary system Status: Acute Assessment and Plan: patient was having some urinary tract symptoms after having a cystoscopy and stent removal. I talked to urologist, Dr. Parnell who recommended starting her on oral Bactrim for 3 days I ordered a urinalysis which was abnormal showing trace leukocyte esterase, wbc's 10-15 and it refluxed into a culture. Urine culture shows no growth and appears to just be contamination. leukocytosis is improving after starting Bactrim yesterday And is back to normal. Will continue on Bactrim for another 1-2 days due to the recent procedure. She still continued to have urinary symptoms but states it is getting better. Will recheck another postvoid residual. continue monitoring patient's symptoms and continue antibiotics with Bactrim. (3) Vision changes: Code(s): H53.9 - Unspecified visual disturbance Status: Acute Assessment and Plan: The patient has been complaining intermittently of some vision changes, trouble focusing and when looking at small font on her phone as well as seen some blurry specks in her vision at times. she had been asked about getting a carotid Doppler ultrasound as well as an MRI but she had refused both of these stating that she thinks it is a side effect from 1 of the medications. MRI of her brain was showing no acute intracranial abnormality. Her neuro examination is completely normal without any signs of a stroke. Physical and occupational therapy evaluated the patient and felt that she was at her baseline and discontinued any further therapy After stopping the oxybutynin the patient's dizziness and vision changes have almost completely resolved. continue monitoring patient's symptoms (4) Dizziness: Code(s): R42 - Dizziness and giddiness Status: Acute Assessment and Plan: Patient reports intermittent dizziness and spotty vision changes. May be related to infection/mild dehydration, may be related to pain medications? CT brain is normal. Her neuro examination is normal without any focal weakness, headaches, slurred speech, confusion, or any other symptoms. Vitals are stable. MRI was normal and after stopping oxybutynin the patient's symptoms almost completely resolved continue monitoring patient's symptoms (5) Left renal stone: Code(s): N20.0 - Calculus of kidney Status: Acute Assessment and Plan: patient underwent a cystoscopy, left retrograde pyelogram, left uteroscopy with stone extraction, left ureteral stent exchange today by Dr. Parnell On 09/16/2019 Patient's stent that was placed on 09/16/2019 after her procedure she was having continued discomfort and the stent was removed by the urology nurse practitioner on 09/17/2019 Patient is not having any flank pain. will continue monitor the patient overnight and see what Urology wants to do further as an outpatient (6) Bladder spasm:
[2019-09-20] MEDS: BISACODYL 5 MG TABLET EC PO (16:23)
--- NOTE | 2019-09-20 17:00 | PC.NURSE ---
Checked post-void residual. Patient voided 100 cc clear yellow urine. Checked post void residual - 0-20 cc noted in bladder.
[2019-09-20 20:00] VITALS: PULSE 74; RESP 16; O2SAT 95
[2019-09-20 20:22] VITALS: PULSE 74
[2019-09-20 22:00] VITALS: BP 112/61; PULSE 67; RESP 16; TEMP 36.1; O2SAT 98
[2019-09-21 05:52] LABS: Anion Gap 6 mmol/L (8-16); Blood Urea Nitrogen 16 mg/dL (7-17); Calcium 8.9 mg/dL (8.4-10.2); Carbon Dioxide 26 mmol/L (22-30); Chloride 105 mmol/L (98-107); Estimated CRCL calculation 32 ml/min; Estimated Glomerular Filt Rate 33; Glucose 101 mg/dL (65-105); Potassium 4.1 mmol/L (3.4-5.0); Sodium 137 mmol/L (137-145)
[2019-09-21 06:00] VITALS: BP 109/53; PULSE 70; RESP 18; TEMP 36.9; O2SAT 95
[2019-09-21] MEDS: ACETAMINOPHEN 325 MG TABLET 650 MG PO ×2 (06:08→12:07)
[2019-09-21] MEDS: MINERAL OIL 30 ML UDC PO (08:02)
[2019-09-21 08:04] VITALS: PULSE 76
[2019-09-21] MEDS: carvediloL 25 MG TABLET PO (08:04)
[2019-09-21] MEDS: CYCLOBENZAPRINE HCL 10 MG TABLET PO ×3 (08:05→17:12)
[2019-09-21] MEDS: SACCHAROMYCES BOULARDII 250 MG CAPSULE PO ×2 (08:06→17:12)
[2019-09-21] MEDS: amLODIPine BESYLATE 5 MG TABLET PO (08:06)
[2019-09-21] MEDS: MIRABEGRON 25 MG ER TABLET PO (08:06)
[2019-09-21] MEDS: DOCUSATE SODIUM 100 MG CAPSULE PO (08:06)
[2019-09-21] MEDS: polyethylene glycoL 3350 17 GM POWD.PACK PO ×2 (08:07→12:05)
[2019-09-21] MEDS: GABAPENTIN 300 MG CAPSULE BY MOUTH ×2 (08:07→17:12)
[2019-09-21] MEDS: PANTOPRAZOLE 40 MG TABLET PO (08:07)
[2019-09-21 13:24] VITALS: BP 132/70; PULSE 66; RESP 18; TEMP 36.3; O2SAT 100
[2019-09-21] MEDS: ONDANSETRON INJ 4 MG/2 ML VIAL IV PUSH (14:42)
--- NOTE | 2019-09-21 15:59 | PM.DS ---
DS: Admitting Diagnosis Admitting Diagnosis Admitting Diagnosis: Tubulo-interstitial nephritis, not specified as acute or chronic DS: Discharge Diagnosis Discharge Diagnosis (1) Constipation: Code(s): K59.00 - Constipation, unspecified Status: Acute Assessment and Plan: The patient has not had a bowel movement since admission and we have given her multiple doses of MiraLax, Colace, to enemas, to suppositories, mineral oil p.o. without any improvement over constipation. KUB shows mild to moderate constipation otherwise no acute findings or obstructive bowel gas pattern. The patient finally had 2 bowel movements today and they were moderate in size and she is feeling much better. Plans to continue with MiraLax and stool softener to prevent further constipation with her chronic narcotic use. (2) Urinary tract infection symptoms: Code(s): R39.9 - Unspecified symptoms and signs involving the genitourinary system Status: Acute Assessment and Plan: patient was having some urinary tract symptoms after having a cystoscopy and stent removal. I talked to urologist, Dr. Parnell who recommended starting her on oral Bactrim for 3 days I ordered a urinalysis which was abnormal showing trace leukocyte esterase, wbc's 10-15 and it refluxed into a culture. Urine culture shows no growth and appears to just be contamination. leukocytosis Normalized. Today was day 3 of Bactrim it was discontinued. And her urinary symptoms are improving. She has an appointment with urology on the 09/23 for further evaluation after her procedure. Normal postvoid residual. she understands and agrees with the plan all questions answered. (3) Vision changes: Code(s): H53.9 - Unspecified visual disturbance Status: Acute Assessment and Plan: The patient has been complaining intermittently of some vision changes, trouble focusing and when looking at small font on her phone as well as seen some blurry specks in her vision at times. She had been asked about getting a carotid Doppler ultrasound as well as an MRI but she had refused both of these stating that she thinks it is a side effect from 1 of the medications. MRI of her brain was showing no acute intracranial abnormality. Her neuro examination is completely normal without any signs of a stroke. Physical and occupational therapy evaluated the patient and felt that she was at her baseline and discontinued any further therapy After stopping the oxybutynin the patient's dizziness and vision changes have almost completely resolved. (4) Dizziness: Code(s): R42 - Dizziness and giddiness Status: Acute Assessment and Plan: Patient reports intermittent dizziness and spotty vision changes. May be related to infection/mild dehydration, may be related to pain medications? CT brain is normal. Her neuro examination is normal without any focal weakness, headaches, slurred speech, confusion, or any other symptoms. Vitals are stable. MRI was normal and after stopping oxybutynin the patient's symptoms almost completely resolved (5) Left renal stone: Code(s): N20.0 - Calculus of kidney Status: Acute Assessment and Plan: patient underwent a cystoscopy, left retrograde pyelogram, left uteroscopy with stone extraction, left ureteral stent exchange today by Dr. Parnell On 09/16/2019 Patient's stent that was placed on 09/16/2019 after her procedure she was having continued discomfort and the stent was removed by the urology nurse practitioner on 09/17/2019 Patient is not having any flank pain. (6) Bladder spasm: Code(s): N32.89 - Other specified disorders of bladder S
== END 2019-09-21 17:55 | disposition home or self-care (01) | DRG 661 ==
LOC: ANHED 16:25 → ANH2MED 19:45
PROVIDERS: Emergency Medicine; Nurse Practitioner; Physician Assistant; Urology; Admitting Provider Internal Medicine; Emergency Provider Emergency Medicine; PCP Family Medicine; Visit Provider Physician Assistant
PROC: 0TC18ZZ Extirpation of Matter from Left Kidney, Via Natural or Artificial Opening Endoscopic (ICD-10-PCS; CPT 52352; principal; 2019-09-16 12:00)
DX: N13.2 Hydronephrosis with renal and ureteral calculous obstruction (principal); N17.9 Acute kidney failure, unspecified; K80.20 Calculus of gallbladder without cholecystitis without obstruction; N28.89 Other specified disorders of kidney and ureter; N32.89 Other specified disorders of bladder; R39.9 Unspecified symptoms and signs involving the genitourinary system; K59.00 Constipation, unspecified; F41.9 Anxiety disorder, unspecified; F40.01 Agoraphobia with panic disorder; M50.90 Cervical disc disorder, unspecified, unspecified cervical region; I10 Essential (primary) hypertension; G89.29 Other chronic pain; Z96.0 Presence of urogenital implants; R42 Dizziness and giddiness; H53.9 Unspecified visual disturbance; T44.3X5A Adverse effect of other parasympatholytics [anticholinergics and antimuscarinics] and spasmolytics, initial encounter; D72.829 Elevated white blood cell count, unspecified; Z98.890 Other specified postprocedural states; Z79.899 Other long term (current) drug therapy
CPT/HCPCS: 36415; 70450; 70551; 71046; 74018; 74176; 74177; 74420; 80048; 80053; 81001; 82365; 83690; 83735; 84443; 84484; 85025; 85027; 85610; 85730; 87040; 87086; 87088; 88300; 92610; 93005; 96365; 96375; 96376; 97161; 97165; 99285; A9270; C1769; C1894; C2617; J0131; J0696; J1170; J2250; J2270; J2405; J2704; J3010; J7030; J7040; J7120; Q9966; Q9967

== ENCOUNTER 2019-09-22 14:53 | Outpatient (CLI) | payer BC, SELFPAY ==
[2019-09-22 16:35] LABS: Anion Gap 6 mmol/L (8-16); Blood Urea Nitrogen 18 mg/dL (7-17); Calcium 9.4 mg/dL (8.4-10.2); Carbon Dioxide 29 mmol/L (22-30); Chloride 101 mmol/L (98-107); Estimated Glomerular Filt Rate 35; Glucose 96 mg/dL (65-105); Potassium 4.2 mmol/L (3.4-5.0); Sodium 136 mmol/L (137-145)
== END 2019-09-22 14:54 | disposition home or self-care (01) ==
PROVIDERS: PCP Family Medicine; Visit Provider Nurse Practitioner Family
DX: R60.9 Edema, unspecified (principal); I10 Essential (primary) hypertension
CPT/HCPCS: 36415; 80048

== ENCOUNTER 2019-11-03 16:12 | Outpatient (CLI) | payer BC, SELFPAY ==
[2019-11-03 16:47] LABS: Basophils Percent Auto 0.4 % (0.2-1.2); Eosinophils Absolute Auto 0.4 K/mm3 (0-0.3); Eosinophils Percent Auto 4.2 % (0-4.4); Hemoglobin 11.2 g/dL (12.0-15.0); Immature Granulocyte Absolute 0.05 K/mm3 (0.00-0.031); Immature Granulocyte Percent A 0.5 % (0-0.5); Lymphocytes Absolute Auto 2.76 K/mm3 (0.9-3.2); Lymphocytes Percent Auto 28.2 % (18.3-44.2); Mean Corpuscular Hemoglobin 27.2 pg (26-34); Mean Platelet Volume 9.9 fl (7.4-10.4); Monocytes Absolute Auto 0.7 K/mm3 (0.1-0.6); Monocytes Percent Auto 6.9 % (2.6-8.5); Neutrophils Absolute Auto 5.8 K/mm3 (1.3-6.7); Neutrophils Percent Auto 59.8 % (45.5-73.1); Platelet Count Result 356 k/mm3 (150-375); Red Blood Count 4.12 M/mm3 (4.2-5.4); Red Cell Distribution Width 13.6 % (11.5-14.5); White Blood Count 9.8 K/mm3 (4.5-10.0)
[2019-11-03 17:03] LABS: Cholesterol 210 mg/dL (0-200); HDL Direct 37 mg/dL; Triglycerides 206 mg/dL (<150)
[2019-11-03 17:04] LABS: Anion Gap 4 mmol/L (8-16); Blood Urea Nitrogen 21 mg/dL (7-17); Calcium 9.7 mg/dL (8.4-10.2); Carbon Dioxide 28 mmol/L (22-30); Chloride 106 mmol/L (98-107); Estimated Glomerular Filt Rate 38; Glucose 99 mg/dL (65-105); Potassium 4.3 mmol/L (3.4-5.0); Sodium 138 mmol/L (137-145)
[2019-11-03 17:06] LABS: Rheumatoid Factor < 8.6 IU/ML (<12)
[2019-11-03 17:12] LABS: NT Pro B Type Natriuretic Pept 260 PG/ML (5-100)
[2019-11-03 17:13] LABS: LDL Cholesterol Direct 122 mg/dL
[2019-11-03 17:16] LABS: Erythrocyte Sedimentation Rate 27 mm/hr (0-20)
[2019-11-09 11:01] LABS: ANA Cascade Screen Negative (Negative)
== END 2019-11-03 16:13 | disposition home or self-care (01) ==
LOC: ANHLAB 16:14
PROVIDERS: Nurse Practitioner Family; PCP Family Medicine; Visit Provider Nurse Practitioner Family
DX: M79.89 Other specified soft tissue disorders (principal)
CPT/HCPCS: 36415; 80048; 80061; 83880; 85025; 85652; 86038; 86430

== ENCOUNTER 2019-11-11 15:06 | Outpatient (CLI) | payer BC, SELFPAY ==
[2019-11-11 16:59] LABS: Iron 46 ug/dL (37-170)
[2019-11-11 17:08] LABS: Percent Iron Saturation 11 % (20-50)
== END 2019-11-11 15:07 | disposition home or self-care (01) ==
LOC: ANHLAB 15:08
PROVIDERS: PCP Family Medicine; Visit Provider Physician Assistant Medical
DX: D64.9 Anemia, unspecified (principal)
CPT/HCPCS: 36415; 83540; 83550

== ENCOUNTER 2019-11-26 14:35 | Outpatient (CLI) | payer BC, SELFPAY ==
[2019-11-26 15:17] LABS: Albumin Level 4.3 g/dL (3.5-5.1); Anion Gap 9 mmol/L (8-16); Blood Urea Nitrogen 17 mg/dL (7-17); Calcium 9.4 mg/dL (8.4-10.2); Carbon Dioxide 36 mmol/L (22-30); Chloride 95 mmol/L (98-107); Estimated Glomerular Filt Rate 42; Glucose 129 mg/dL (65-105); Phosphorus 2.8 mg/dL (2.5-4.5); Potassium 3.1 mmol/L (3.4-5.0); Sodium 140 mmol/L (137-145)
[2019-11-26 15:24] LABS: Total Protein Urine Random 18 mg/dL
== END 2019-11-26 14:36 | disposition home or self-care (01) ==
LOC: ANHLAB 14:37
PROVIDERS: PCP Family Medicine; Visit Provider Internal Medicine Nephrology
DX: I12.9 Hypertensive chronic kidney disease with stage 1 through stage 4 chronic kidney disease, or unspecified chronic kidney disease (principal); N18.31 Chronic kidney disease, stage 3a; R60.0 Localized edema
CPT/HCPCS: 36415; 80069; 82570; 84156

== ENCOUNTER 2019-12-09 15:20 | Outpatient (CLI) | payer BC, SELFPAY ==
[2019-12-09 16:57] LABS: Hematocrit 34.6 % (37.0-47.0); Mean Corpuscular HGB Conc 31.8 g/dl (32-36); Mean Corpuscular Hemoglobin 26.4 pg (26-34); Red Blood Count 4.17 M/mm3 (4.2-5.4); Red Cell Distribution Width 12.9 % (11.5-14.5); White Blood Count 10.8 K/mm3 (4.5-10.0)
[2019-12-09 17:00] LABS: Iron 51 ug/dL (37-170)
[2019-12-09 17:09] LABS: Percent Iron Saturation 13 % (20-50)
== END 2019-12-09 15:21 | disposition home or self-care (01) ==
LOC: ANHLAB 15:22
PROVIDERS: PCP Family Medicine; Visit Provider Physician Assistant Medical
DX: D50.9 Iron deficiency anemia, unspecified (principal)
CPT/HCPCS: 36415; 83540; 83550; 85027

== ENCOUNTER 2019-12-11 10:56 | Outpatient (CLI) | payer BC, SELFPAY ==
[2019-12-11 11:34] LABS: Alanine Aminotransferase 22 U/L (4-35); Albumin Level 4.1 g/dL (3.5-5.1); Alkaline Phosphatase 119 U/L (38-126); Anion Gap 5.99999 mmol/L (8-16); Aspartate Amino Transferase 35 U/L (14-36); Bilirubin,Total 0.7 mg/dL (0.2-1.3); Blood Urea Nitrogen 14 mg/dL (7-17); Calcium 9.5 mg/dL (8.4-10.2); Carbon Dioxide > 40 mmol/L (22-30); Chloride 97 mmol/L (98-107); Estimated Glomerular Filt Rate 42; Glucose 116 mg/dL (65-105); Potassium 2.8 mmol/L (3.4-5.0); Sodium 143 mmol/L (137-145)
== END 2019-12-11 10:57 | disposition home or self-care (01) ==
LOC: ANHLAB 10:58
PROVIDERS: PCP Family Medicine; Visit Provider Nurse Practitioner Family
DX: E87.6 Hypokalemia (principal); R10.13 Epigastric pain
CPT/HCPCS: 36415; 80053

== ENCOUNTER 2019-12-18 12:37 | Outpatient (CLI) | payer BC, SELFPAY ==
[2019-12-18 13:46] LABS: Potassium 4.3 mmol/L (3.4-5.0)
== END 2019-12-18 12:38 | disposition home or self-care (01) ==
PROVIDERS: PCP Family Medicine; Visit Provider Nurse Practitioner Family
DX: E78.6 Lipoprotein deficiency (principal)
CPT/HCPCS: 36415; 84132

== ENCOUNTER 2019-12-22 00:02 | Outpatient (CLI) | payer BC, SELFPAY ==
[2019-12-22 19:48] LABS: SARS-CoV-2 RNA PCR Negative
== END 2019-12-22 00:03 | disposition home or self-care (01) ==
LOC: ANHCOVIDDT 00:02
PROVIDERS: PCP Family Medicine; Visit Provider Internal Medicine Gastroenterology
DX: Z01.818 Encounter for other preprocedural examination (principal); Z20.828 Contact with and (suspected) exposure to other viral communicable diseases
CPT/HCPCS: 87635; C9803; U0003

== ENCOUNTER 2019-12-25 01:02 | Day surgery (SDC) | payer BC, SELFPAY ==
[2019-12-21 13:07] VITALS: BMI 26.9
--- NOTE | ~2019-12-25 | CT_ITS ---
EXAMINATION: CT abdomen pelvis w con DATE: 12/25/2019 12:30 INDICATION: Ascending colon mass TECHNIQUE: Computed tomography (CT) of the abdomen and pelvis was performed with 100 mL Omnipaque-350 intravenous contrast. Automated exposure control and iterative reconstruction technique were employe d. The dose-length product was 630.28 mGy-cm. COMPARISON: 09/15/2019 FINDINGS: Mild discoid atelectasis in the lingula. Heart size is normal. No pericardial or pleural effusion. A couple calcified gallstones in the otherwise normal gallbladder with no wall thickening or pericholec ystic inflammatory stranding to suggest acute cholecystitis. Diffuse hepatic steatosis. Spleen, pancr eas, bilateral adrenal glands are normal. 3 nonobstructing right renal stone the largest measuring 4 mm in maximal diameter. Mild cortical scarring at the lower pole of the left kidney. There are a few small low-attenuation cysts at the lower pole of the left kidney as well as a larger 1.8 cm mildly co mplex exophytic cyst which is unchanged from 09/01/2019 at which time it demonstrated similar greater than simple fluid attenuation but with no enhancement. Bladder and adnexa are unremarkable. The uteru s is not identified and has likely been surgically resected. Focal region of enhancing wall thickening in the region of the ileocecal valve with a few central janeen cifications which could be either inflammatory or malignant in etiology. There is approximately 9 mm macroscopic fat attenuation likely lipoma within the lumen of the slightly more distal ascending colo n. Small bowel and appendix are normal. There are several subcentimeter lymph nodes at the distal ile ocolic chain appears slightly more prominent than the remainder of the mesenteric lymph nodes which c ould be either reactive or metastatic. No pathologically enlarged abdominal or pelvic lymphadenopathy . No free intraperitoneal gas or fluid. T12 hemangioma. Moderate lower thoracic spondylosis. Addition al moderate disc height loss with vacuum phenomena, severe bilateral facet osteoarthritis and 5 mm an terolisthesis L4 on L5. L5 is sacralized. IMPRESSION: 1. Enhancing wall thickening at the ileocecal valve which could be either inflammatory or malignant i n etiology. 2. Small microscopic fat attenuation lipoma versus ingested fatty material approximately 2-3 cm dista l to the region of wall thickening. 3.. Mildly prominent but still subcentimeter distal ileocolic chain lymph nodes which could be either reactive or metastatic. 4. Cholelithiasis. 5. Nonobstructing nephrolithiasis. Reviewed, dictated and finalized at location . LESS SALES REPRESENTATIVE IMPRESSION: 1. Enhancing wall thickening at the ileocecal valve which could be either infla mmatory or malignant in etiology. 2. Small microscopic fat attenuation lipoma versus ingested fatty material appr oximately 2-3 cm distal to the region of wall thickening. 3.. Mildly prominent but still subcentimeter distal ileocolic chain lymph nodes which could be either reactive or metastatic. 4. Cholelithiasis. 5. Nonobstructing nephrolithiasis.
--- NOTE | 2019-12-25 08:15 | WPDANESEPPF ---
Anes - Initial Pre Proc Eval Procedure: Operation Date: 12/25/19 10:00 Proposed Procedures p Screening Colonoscopy - Manny Longoria MD Date/Time: 12/25/19 08:15 Surgeon: Manny Longoria MD Pre Op Diagnosis: Neoplasm Screening Patient Data Age: 63 Gender: F Height: 1.7 m Weight: 78 kg Allergies Allergy/AdvReac Type Severity Reaction Status Date / Time aspirin Allergy Unknown ITCHING, Verified 12/25/19 09:05 GI UPSET levofloxacin Allergy Unknown Hallucinati Verified 12/25/19 09:05 ons Penicillins Allergy Unknown Unknown- Verified 12/25/19 09:05 CHILD salicylates Allergy Unknown GI UPSET Verified 12/25/19 09:05 carisoprodol AdvReac Unknown Gastrointestinal Verified 12/25/19 09:05 Upset Home Medications Medication Instructions Recorded Confirmed Type gabapentin 300 mg BID 04/22/19 12/21/19 History cholecalciferol (vitamin D3) 50 mcg PO DAILY 09/12/19 12/21/19 History amlodipine 5 mg tablet 5 mg PO DAILY #30 tablet 09/28/19 12/21/19 Rx carvedilol 25 mg tablet 25 mg PO Q12H #60 tablet 09/28/19 12/21/19 Rx albuterol sulfate 90 mcg/actuation 1 inhalation INHALATION Q4H PRN 11/09/19 12/21/19 Rx aerosol inhaler #6.7 gm bumetanide 1 mg tablet 1 mg PO DAILY 11/18/19 12/21/19 History cyclobenzaprine 10 mg tablet 10 mg PO TID #90 tablet 11/27/19 12/21/19 Rx hydrocodone 5 mg-acetaminophen 325 1 tablet PO Q6-8H PRN #90 tablet 11/27/19 12/21/19 Rx mg tablet hydroxyzine HCl 25 mg tablet 25 mg PO TID PRN #90 tablet 11/27/19 12/21/19 Rx potassium chloride 10 mEq 10 meq PO DAILY #30 tablet 12/11/19 12/21/19 Rx tablet,extended release ferrous sulfate 325 mg (65 mg 325 mg PO TID #90 tablet 12/14/19 12/21/19 Rx iron) tablet Patient hx anesthesia problems: none Family hx anesthesia problems: none PMFSH Past Medical History Medical History (Updated 12/25/19 @ 08:16 by Sharath De Dios MD) Agoraphobia Agoraphobia with panic attacks NELLY (acute kidney injury) Anxiety disorder, unspecified Bladder spasm BMI 27.0-27.9,adult Bronchitis Cervical disc disease chronic neck and back pain Cholelithiasis Chronic back pain Chronic neck pain DDD (degenerative disc disease) Depression Essential (primary) hypertension HTN (hypertension) Hyperlipidemia IBS (irritable bowel syndrome) Kidney mass Murmur Nephrolithiasis Neuropathy Pleurisy Surgical History Surgical History H/O colonoscopy with polypectomy History of hysterectomy partial History of renal stent Family History Family History Mother Carcinoma of colon Hypertension Rheumatoid arthritis Father Family history of diabetes mellitus in first degree relative Carcinoma of colon Hypertension Acute myocardial infarction Rheumatoid arthritis Sibling Family history of malignant neoplasm of brain Rheumatoid arthritis Other Family history of malignant neoplasm of male breast Social History Social History Social History: the patient lives with her Juan who is a durable power workers compensation attorney for healthcare. The patient desires to be a full code. She helps her relatives clean house fall living. She has 1 child. Which is a son. She denies any alcohol marijuana or illicit drugs. Smoking packs per day: 0.5 Smoking cigarettes per day: 10.0 Years smoked: 10 Smoking pack-years: 5.00 Smoking status: Former smoker Tobacco type: cigarettes Alcohol intake: never Substance use: never Substance use type: does not use Living arrangements: with family Gender identity (if verbalized by the patient): Female Spiritual care concerns: No Agree to blood products: Yes Anes - Eval Final PreProcedure Day of Procedure 12/25/19 08:15 Patient weight: overweight Heart: regular rate and rhyt
[2019-12-25 09:06] VITALS: BP 133/69; PULSE 71; RESP 16; TEMP 36.4; O2SAT 95
[2019-12-25] MEDS: LACTATED RINGERS 1,000 ML 150 ML IV CONT (09:14)
--- NOTE | 2019-12-25 09:39 | PM.HPGS ---
History of Present Illness History of Present Illness Consent: Risks, benefits, and alternatives have been discussed and questions answered. Patient agrees to proceed with procedure. Chief complaint: Neoplasm Screening Narrative: Eladia Mock is a 63 year old female with both parents had colon cancer, her last colonoscopy 7 years ago. Review of Systems Constitutional: Constitutional: Denies headache(s) and Denies weakness Eyes: Eyes: Denies blurry vision ENT: Reports Normal hearing present, Denies headache(s) and Denies neck pain Cardiovascular: Cardiovascular: Denies chest pain and Denies dyspnea Respiratory: Respiratory: Denies dyspnea Gastrointestinal: Gastrointestinal: Reports no additional gastrointestinal complaints Genitourinary: Genitourinary: Denies dysuria Musculoskeletal: Musculoskeletal: Denies neck pain Integumentary/Breasts: Skin/Breast: Denies dry skin Neurologic: Reports Normal hearing present, Denies headache(s) and Denies weakness Psychiatric: Psychiatric: Denies anxiety Endocrine: Endocrine: Denies change in body appearance Hematologic/Lymphatic: Hematologic/Lymphatic: Denies easy bleeding Allergic/Immunologic: Allergic/Immunologic: Denies urticaria PMFSH Past Medical History Medical History (Updated 12/25/19 @ 09:39 by Manny Longoria MD) Agoraphobia Agoraphobia with panic attacks NELLY (acute kidney injury) Anxiety disorder, unspecified Bladder spasm BMI 27.0-27.9,adult Bronchitis Cervical disc disease chronic neck and back pain Cholelithiasis Chronic back pain Chronic neck pain DDD (degenerative disc disease) Depression Essential (primary) hypertension Family history of colon cancer HTN (hypertension) Hyperlipidemia IBS (irritable bowel syndrome) Kidney mass Murmur Nephrolithiasis Neuropathy Pleurisy Surgical History Surgical History H/O colonoscopy with polypectomy History of hysterectomy partial History of renal stent Family History Family History Mother Carcinoma of colon Hypertension Rheumatoid arthritis Father Family history of diabetes mellitus in first degree relative Carcinoma of colon Hypertension Acute myocardial infarction Rheumatoid arthritis Sibling Family history of malignant neoplasm of brain Rheumatoid arthritis Other Family history of malignant neoplasm of male breast Social History Social History Social History: the patient lives with her Juan who is a durable power energy attorney for healthcare. The patient desires to be a full code. She helps her relatives clean house fall living. She has 1 child. Which is a son. She denies any alcohol marijuana or illicit drugs. Smoking packs per day: 0.5 Smoking cigarettes per day: 10.0 Years smoked: 10 Smoking pack-years: 5.00 Smoking status: Former smoker Tobacco type: cigarettes Alcohol intake: never Substance use: never Substance use type: does not use Living arrangements: with family Gender identity (if verbalized by the patient): Female Spiritual care concerns: No Agree to blood products: Yes Meds Home Medications and Allergies Home Medications Medication Instructions Recorded Confirmed Type gabapentin 300 mg BID 04/22/19 12/21/19 History cholecalciferol (vitamin D3) 50 mcg PO DAILY 09/12/19 12/21/19 History amlodipine 5 mg tablet 5 mg PO DAILY #30 tablet 09/28/19 12/21/19 Rx carvedilol 25 mg tablet 25 mg PO Q12H #60 tablet 09/28/19 12/21/19 Rx albuterol sulfate 90 mcg/actuation 1 inhalation INHALATION Q4H PRN 11/09/19 12/21/19 Rx aerosol inhaler #6.7 gm bumetanide 1 mg tablet 1 mg PO DAILY 11/18/19 12/21/19 History cyclobenzaprine 10 mg tablet 10 mg PO TID #90 tablet 11/27/19 12/21/19 Rx hydrocodone 5 mg-acetaminophen 325 1 tablet P
[2019-12-25 10:15] VITALS: BP 102/49; PULSE 69; RESP 21; O2SAT 95
[2019-12-25 10:25] VITALS: BP 108/52; PULSE 66; RESP 15; O2SAT 96
[2019-12-25 10:35] VITALS: BP 113/55; PULSE 65; RESP 16; O2SAT 98
[2019-12-25 10:45] VITALS: BP 119/56; PULSE 68; RESP 17; O2SAT 100
--- NOTE | 2019-12-25 11:32 | SUR.PHASEII ---
1115 PATROL OFFICER NOHEMI INTO SEE PATIENT, 1130 FAMILY UPSET WITH REPORT FROM DR. OCASIO, CRYING AND VERY ANXIOUS. SPOUSE AT BEDSIDE, PATIENT ASKED FOR SOMETHING FOR ANXIETY, [address] OCASIO [address]. OCASIO ORDERED AN ANXIETY MED 1133 UPDATED PATIENT AND WAITING FOR MED TO COME UP FROM PHARMACY
[2019-12-25] MEDS: ALPRAZolam (*CRX) 0.25 MG TABLET PO (11:47)
--- NOTE | 2019-12-25 12:07 | SUR.PHASEII ---
[address] IN W/C IV SALINE LOCKED AND PATIENT SENT TO CT WITH IV.
[2019-12-25 13:22] LABS: Carcinoembryonic Antigen 6.9 ng/mL (0.0-3.0)
== END 2019-12-25 12:10 | disposition home or self-care (01) ==
PROVIDERS: PCP Family Medicine; Visit Provider Internal Medicine Gastroenterology
PROC: 0DJD8ZZ Inspection of Lower Intestinal Tract, Via Natural or Artificial Opening Endoscopic (ICD-10-PCS; CPT 45378; principal; 2019-12-25 10:00)
DX: Z12.11 Encounter for screening for malignant neoplasm of colon (principal); C18.2 Malignant neoplasm of ascending colon; K57.30 Diverticulosis of large intestine without perforation or abscess without bleeding; K64.4 Residual hemorrhoidal skin tags; Z80.0 Family history of malignant neoplasm of digestive organs; I10 Essential (primary) hypertension; E78.5 Hyperlipidemia, unspecified; K58.9 Irritable bowel syndrome, unspecified; G62.9 Polyneuropathy, unspecified; F41.8 Other specified anxiety disorders; F40.01 Agoraphobia with panic disorder; Z87.891 Personal history of nicotine dependence
CPT/HCPCS: 45380; 36415; 74177; 82378; 88305; A9270; J2704; J7120; Q9967

== ENCOUNTER 2020-01-01 14:54 | Outpatient (CLI) | payer BC, SELFPAY ==
[2020-01-01 15:50] LABS: Potassium 3.2 mmol/L (3.4-5.0)
== END 2020-01-01 14:55 | disposition home or self-care (01) ==
PROVIDERS: PCP Family Medicine; Visit Provider Nurse Practitioner Family
DX: E87.6 Hypokalemia (principal)
CPT/HCPCS: 36415; 84132

== ENCOUNTER 2020-01-04 13:41 | Outpatient (CLI) | payer BC, SELFPAY | END 2020-01-04 13:42 | disposition home or self-care (01) | LOC: ANHSURGERY 13:43 | PROVIDERS: PCP Family Medicine; Visit Provider Surgery | DX: Z01.812 Encounter for preprocedural laboratory examination (principal); C18.2 Malignant neoplasm of ascending colon | CPT/HCPCS: 36415; 86850; 86900; 86901 ==

== ENCOUNTER 2020-01-11 00:36 | Outpatient (CLI) | payer BC, SELFPAY ==
[2020-01-11 20:45] LABS: SARS-CoV-2 RNA PCR Negative
== END 2020-01-11 00:37 | disposition home or self-care (01) ==
LOC: ANHCOVIDDT 00:36
PROVIDERS: PCP Family Medicine; Visit Provider Surgery
DX: Z01.818 Encounter for other preprocedural examination (principal); Z20.828 Contact with and (suspected) exposure to other viral communicable diseases
CPT/HCPCS: 87635; C9803; U0003

== ENCOUNTER 2020-01-11 07:55 | Outpatient (CLI) | payer BC, SELFPAY ==
--- NOTE | ~2020-01-11 | CT_ITS ---
EXAMINATION: CT chest w con DATE: 01/11/2020 08:55 INDICATION: Colon cancer. Surgery this week. TECHNIQUE: Computed tomography (CT) of the chest was performed with 75 cc Omnipaque 350 intravenous c ontrast. The dose-length product was 166.35 mGy-cm. Automated exposure control and iterative reconstr uction technique were employed. COMPARISON: CT dated 05/02/2006 FINDINGS: Heart size normal. No thoracic lymphadenopathy. No pleural or pericardial effusion. No evid ence for aortic aneurysm or dissection. Heart size normal. There are gallstones. No pneumothorax. No focal airspace consolidation. There is lingular atelectasis/scarring. No suspicious pulmonary nodules or masses. Mild thoracic spondylosis. There is a mixed lytic/sclerotic lesion of T12, likely benign hemangioma.. IMPRESSION: 1. No evidence for metastatic disease. Reviewed, dictated and finalized at location B. ER SERVICES REPRESENTATIVE
== END 2020-01-11 07:56 | disposition home or self-care (01) ==
PROVIDERS: PCP Family Medicine; Visit Provider Internal Medicine Hematology & Oncology
DX: C18.2 Malignant neoplasm of ascending colon (principal); K80.80 Other cholelithiasis without obstruction
CPT/HCPCS: 71260; Q9967

== ENCOUNTER 2020-01-14 09:23 | Inpatient (IN) | payer BC, SELFPAY ==
[2020-01-04 14:07] VITALS: BP 160/80; PULSE 78; RESP 18; TEMP 37.2; O2SAT 92; BMI 27.3
[2020-01-14] VITALS (14 sets, daily range): BP systolic 100–146; BP diastolic 49–83; PULSE 64–97; RESP 11–20; TEMP 35.7–36.9; O2SAT 95–100
[2020-01-14] MEDS: ACETAMINOPHEN 500 MG TABLET 1000 MG PO ×3 (07:08→20:06)
[2020-01-14] MEDS: LACTATED RINGERS 1,000 ML 30 ML IV CONT ×2 (07:09→10:07)
--- NOTE | 2020-01-14 08:01 | WPDANESEPP ---
Anes - Eval Pre Procedure Procedure: Operation Date: 01/14/20 08:30 Proposed Procedures p Hand Assisted Laparoscopic Right Hemicolectomy, Possible Open - Cristian Preciado DO Date/Time: 01/14/20 08:01 Pre Op Diagnosis: Ascending Colon Cancer Patient Data Age: 64 Gender: F Height: 1.7 m Weight: 79.3 kg Last Vital Signs Temp 36.7 C 01/14/20 06:46 Pulse 76 01/14/20 06:46 Resp 20 01/14/20 06:46 BP 146/61 H 01/14/20 06:46 Pulse Ox 99 01/14/20 06:46 Allergies Allergy/AdvReac Type Severity Reaction Status Date / Time levofloxacin Allergy Severe Hallucinati Verified 01/14/20 06:55 ons Penicillins Allergy Severe HIVES Verified 01/14/20 06:55 A CHILD aspirin Allergy Mild ITCHING, Verified 01/14/20 06:55 GI UPSET carisoprodol AdvReac Mild Gastrointestinal Verified 01/14/20 06:55 Upset salicylates AdvReac Mild GI UPSET Verified 01/14/20 06:55 Home Medications Medication Instructions Recorded Confirmed Type gabapentin 300 mg BID 04/22/19 01/14/20 History cholecalciferol (vitamin D3) 50 mcg PO DAILY 09/12/19 01/14/20 History amlodipine 5 mg tablet 5 mg PO DAILY #30 tablet 09/28/19 01/14/20 Rx carvedilol 25 mg tablet 25 mg PO Q12H #60 tablet 09/28/19 01/14/20 Rx albuterol sulfate 90 mcg/actuation 1 inhalation INHALATION Q4H PRN 11/09/19 01/14/20 Rx aerosol inhaler #6.7 gm bumetanide 1 mg tablet 1 mg PO BID 11/18/19 01/14/20 History cyclobenzaprine 10 mg tablet 10 mg PO TID #90 tablet 11/27/19 01/14/20 Rx hydrocodone 5 mg-acetaminophen 325 1 tablet PO Q6-8H PRN #90 tablet 11/27/19 01/14/20 Rx mg tablet ferrous sulfate 325 mg (65 mg 325 mg PO TID #90 tablet 12/14/19 01/14/20 Rx iron) tablet alprazolam 0.5 mg tablet 0.5 mg PO TID PRN #40 tablet 12/26/19 01/14/20 Rx hydroxyzine HCl 25 mg tablet See Rx Instructions .ROUTE 12/31/19 01/14/20 Rx .COMPLEX #90 tablet erythromycin 500 mg tablet See Rx Instructions .ROUTE 01/04/20 01/14/20 Rx .COMPLEX #6 tablet vfdrfiks-uiv-nxuj-FA-lutein 1 tablet PO DAILY 01/04/20 01/14/20 History [Centrum Silver Women] neomycin 500 mg tablet See Rx Instructions .ROUTE 01/04/20 01/14/20 Rx .COMPLEX #6 tablet potassium chloride 20 mEq 20 meq PO DAILY #30 tablet 01/05/20 01/14/20 Rx tablet,extended release Patient hx anesthesia problems: none Family hx anesthesia problems: none PMFSH Past Medical History Medical History Agoraphobia Agoraphobia with panic attacks NELLY (acute kidney injury) Anxiety disorder, unspecified Bladder spasm BMI 27.0-27.9,adult Bronchitis Cervical disc disease chronic neck and back pain Cholelithiasis Chronic back pain Chronic neck pain Colon cancer DDD (degenerative disc disease) Depression Essential (primary) hypertension Family history of colon cancer HTN (hypertension) Hyperlipidemia IBS (irritable bowel syndrome) Kidney mass Murmur Nephrolithiasis Neuropathy Pleurisy Surgical History Surgical History H/O colonoscopy with polypectomy History of hysterectomy partial History of renal stent Family History Family History Mother Carcinoma of colon Hypertension Rheumatoid arthritis Father Family history of diabetes mellitus in first degree relative Carcinoma of colon Hypertension Acute myocardial infarction Rheumatoid arthritis Sibling Family history of malignant neoplasm of brain Rheumatoid arthritis Other Family history of malignant neoplasm of male breast Social History Social History Social History: the patient lives with her Juan who is a durable power litigation attorney associate for healthcare. The patient desires to be a full code. She helps her relatives clean house fall living. She has 1 child. Which is a son. She denie
--- NOTE | 2020-01-14 08:03 | WPDHPUPDATE1 ---
History and Physical Update Update Date/Time: 01/14/20 08:03 History and Physical has been reviewed, including an updated exam of the patient. There are NO changes in the patient's condition. Risks, benefits, and alternatives have been discussed and questions answered. Patient agrees to proceed with procedure.
--- NOTE | 2020-01-14 08:06 | WPDANESEFPP ---
Anes - Eval Final PreProcedure Day of Procedure 01/14/20 08:06 Patient weight: overweight Heart: regular rate and rhythm Lungs: clear to auscultation Airway: Mallampati scale class 1 Neurological: alert and oriented Last oral intake: >/= 8 hours ASA classification: III Emergent: no Anesthetic plan: proceed Anesthesia type and monitoring: general ETT and standard monitoring Informed Consent: The patient's anesthetic plan and its attendant risks and benefits were discussed with the patient/family/POA. Questions were solicited and answers provided to the satisfaction of the patient/family/POA.
[2020-01-14] MEDS: KETOROLAC 15 MG/ML VIAL (*BKC) IV PUSH (08:11)
[2020-01-14] MEDS: ceFAZolin 2 GM/D5W 50 ML 2 GM/50 ML BAG IVPB (08:21)
[2020-01-14] MEDS: metroNIDAZOLE 500 MG/ISO 100ML 500 MG/100 ML BAG 100 MG IVPB (08:21)
--- NOTE | 2020-01-14 08:22 | SUR.PREOP ---
0815-PT UP TO BR.
--- NOTE | 2020-01-14 08:22 | SUR.PREOP ---
0805-SPOKE ITH DR. GOSS RE: ANTIBIOTICS/PCN ALLERGY AND TORADOL/ASA INTOLERANCE, WILL PROCEED WITH TORADOL/ANCEF/FLAGYL.
--- NOTE | 2020-01-14 10:07 | PM.PROC ---
Procedure Note - Detailed Date of procedure: 01/14/20 Pre-op diagnosis: Ascending Colon Cancer Post-op diagnosis: same Procedure performed: Hand assisted laparoscopic right hemicolectomy with ileocolic anastomosis Description of procedure: Procedure as well as risks benefits and alternatives were explained to the patient. Written consent was obtained and placed in chart prior to procedure. Patient was brought back to surgical suite. She was placed supine on operating table. Time-out was done to confirm patient procedure. She was then intubated by the anesthesia department. Her abdomen was prepped and draped in sterile fashion using chlorhexidine prep. A 7 centimeter vertical incision was centered on the umbilicus using a 15 blade scalpel. Electrocautery was used for hemostasis and for dissection down through Sheila's fascia. The linea alba was identified, and incised using electrocautery. Two Ministerio clamps were used to lift the fascia anteriorly, and the peritoneum was then entered using electrocautery. The abdomen was inspected and no acute abnormalities were noted. The wound protector was placed at this incision, and the GelPort was applied with a 5 millimeter port placed through it. Carbon dioxide insufflation was used to create a pneumoperitoneum. The camera was inserted and the abdominal cavity was inspected. No abnormalities were noted. The patient was placed in Trendelenburg position and rotated slightly to the left. A 5 millimeter incision was made in the lower midline and a 5 millimeter trocar was inserted under direct visualization. Another 5 millimeter incision was made in the left lower quadrant, and a 5 millimeter trocar was inserted under direct visualization. A transversus abdominis plane block with Exparel was performed under laparoscopic visualization bilaterally. After carefully inspecting the abdominal cavity, I began my dissection from a medial to lateral direction along the ileocolic pedicle. The cecum was tented anteriorly and laterally and this allowed me to visualize the ileocolic pedicle. The medial side and inferior side of the peritoneum was scored using hook electrocautery and the retroperitoneal plane was entered. Careful dissection was performed using hook electrocautery in this relatively avascular plane. The duodenum was identified and swept posteriorly. I then continued to dissect proximally along the ileocolic pedicle. I isolated the ileocolic vein and artery individually and performed a high ligation using bipolar cautery. Hemostasis appeared adequate. I then continued the medial to lateral dissection maintaining this avascular plane. I also dissected along the transverse colon to the right side all the way to the level of the hepatic flexure. The terminal ileum and appendix were then retracted medially and the lateral peritoneal attachments were taken down using hook electrocautery. The root of the mesentery was then carefully taken down proximally to allow adequate mobilization of the small bowel for our anastomosis. The lateral peritoneal attachments of the ascending colon were then taken down using hook electrocautery. The hepatic flexure was taken down using ligasure bipolar cautery. Once this was completed I gained adequate mobilization of the entire ascending and proximal transverse colon to exteriorize and perform our resection and anastomosis. The patient was flattened out in bed, and the cecum was grasped and delivered through the wound protector. The pneumoperitoneum was released. I carefully delivered the entire ascending and proximal transverse colon out through the hand port incision. The specimen was inspected and appeared to have adequate mobilization beyond the tattoo to perform our resection. The transverse colon was cleared of the epiploic appendages and omentum and a SYDNEE 75 millimeter blue load stapler was advanced across the transverse colon at this point and clamped and fired. The right bran
--- NOTE | 2020-01-14 10:57 | SUR.PHASEI ---
1040; PT VERY SLEEPY. AROUSES TO VERBAL STIMULI. GOES BACK TO SLEEP.
--- NOTE | 2020-01-14 10:57 | SUR.PHASEI ---
PT REMAINS SLEEPY, GROGGY. STATES PRESSURE IN STOMACH 8/10 THEN GOES BACK TO SLEEP. FLACC =0-1
[2020-01-14] MEDS: fentaNYL CITRATE INJ (*CRX) 100 MCG/2 ML VIAL 25 MCG IV PUSH ×2 (11:00→11:16)
--- NOTE | 2020-01-14 11:13 | SUR.PHASEI ---
PT SLEEPING. AROUSES TO VERBAL STIMULI. FLACC SCORE =0
--- NOTE | 2020-01-14 11:25 | SUR.PHASEI ---
1115; PT SLEEPING. THEN SOFTLY, SHE WILL SAY PRESSURE . PT COMFORTED. PT GOES BACK TO SLEEP. FENTANYL GIVEN PRN. PT REMAINS VERY GROGGY, SLEEPY.
--- NOTE | 2020-01-14 11:42 | ADMGEN ---
This patient, Eladia Mock, was admitted to Medical Room 253-01. Patient/family oriented to hospital policies and general routines including ID bracelet, bed and alarms, visiting hours, pain management, procedures, bathroom and other care routines, personal items, smoking policy, room service/diet, and visiting hours. Information on how to activate the Rapid Response Team has been discussed. Patient/Family are encouraged to report perceived risks to care and to ask questions if they do not understand what they are told or what they should do.
[2020-01-14] MEDS: CYCLOBENZAPRINE HCL 10 MG TABLET PO ×2 (12:42→16:33)
[2020-01-14] MEDS: LACTATED RINGERS 1,000 ML 100 ML IV CONT ×2 (12:42→23:14)
[2020-01-14] MEDS: hydrOXYzine HCL 25 MG TABLET PO ×2 (12:42→16:33)
[2020-01-14] MEDS: BUMETANIDE 1 MG TABLET PO (16:33)
[2020-01-14] MEDS: HYDROmorphone HCL INJ (*CRX) 1 MG/ML SYR IV PUSH ×2 (16:35→23:15)
[2020-01-14] MEDS: carvediloL 25 MG TABLET PO (17:40)
[2020-01-14] MEDS: GABAPENTIN 300 MG CAPSULE 600 MG PO (20:06)
[2020-01-14] MEDS: ENOXAPARIN 30 MG/0.3 ML SYRINGE SUB-Q (20:07)
[2020-01-15] VITALS (8 sets, daily range): BP systolic 99–127; BP diastolic 49–61; PULSE 64–84; RESP 15–16; TEMP 36.3–37.1; O2SAT 95–100
[2020-01-15] MEDS: ONDANSETRON INJ 4 MG/2 ML VIAL IV PUSH (00:05)
[2020-01-15] MEDS: ACETAMINOPHEN 500 MG TABLET 1000 MG PO (02:33)
[2020-01-15 05:43] LABS: Basophils Percent Auto 0.1 % (0.2-1.2); Hematocrit 32.4 % (37.0-47.0); Hemoglobin 10.4 g/dL (12.0-15.0); Lymphocytes Absolute Auto 1.34 K/mm3 (0.9-3.2); Lymphocytes Percent Auto 6.7 % (18.3-44.2); Mean Corpuscular HGB Conc 32.1 g/dl (32-36); Mean Corpuscular Hemoglobin 25.9 pg (26-34); Mean Corpuscular Volume 80.8 fl (80-100); Mean Platelet Volume 9.8 fl (7.4-10.4); Monocytes Absolute Auto 0.6 K/mm3 (0.1-0.6); Monocytes Percent Auto 2.9 % (2.6-8.5); Neutrophils Absolute Auto 17.9 K/mm3 (1.3-6.7); Neutrophils Percent Auto 89.3 % (45.5-73.1); Platelet Count Result 322 k/mm3 (150-375); Red Blood Count 4.01 M/mm3 (4.2-5.4); Red Cell Distribution Width 13.1 % (11.5-14.5)
[2020-01-15 06:03] LABS: Anion Gap 6 mmol/L (8-16); Blood Urea Nitrogen 14 mg/dL (7-17); Calcium 9.3 mg/dL (8.4-10.2); Carbon Dioxide 34 mmol/L (22-30); Chloride 97 mmol/L (98-107); Estimated CRCL calculation 41 ml/min; Estimated Glomerular Filt Rate 38; Glucose 144 mg/dL (65-105); Potassium 3.2 mmol/L (3.4-5.0); Sodium 137 mmol/L (137-145)
[2020-01-15] MEDS: carvediloL 25 MG TABLET PO ×2 (06:05→17:03)
--- NOTE | 2020-01-15 08:00 | PM.PNGS ---
Progress Note: A&P Assessment and Plan (1) Colon cancer, ascending: Code(s): C18.2 - Malignant neoplasm of ascending colon Status: Acute Assessment and Plan: Advance to full liquids Increase activity Final pathology pending (2) Hypokalemia: Code(s): E87.6 - Hypokalemia Status: Acute Assessment and Plan: Replace K (3) Neuropathy: Code(s): G62.9 - Polyneuropathy, unspecified Status: Acute (4) Chronic neck pain: Code(s): M54.2 - Cervicalgia; G89.29 - Other chronic pain Status: Acute Subjective Subjective Date/Time Seen: 01/15/20 08:00 Bowels moving. Tolerating clears. Pain controlled. Said she had multiple episodes of diarrhea overnight. Exam GI: Inspection: non-distended and incision (C/D/I) GI Palp: Yes Soft to palpation and Yes Tenderness to palpation present (GI) (incisional) Auscultation: normal bowel sounds Objective Data Vital Signs Vital Signs: Vital Signs - 24 hr 01/14/20 10:07 01/14/20 10:20 01/14/20 10:35 Temperature 36.2 C L Pulse Rate 64 68 66 Respiratory Rate 11 L 13 14 Blood Pressure 101/49 L 107/55 L 107/57 L Pulse Oximetry 100 100 100 01/14/20 10:50 01/14/20 11:05 01/14/20 11:20 Temperature Pulse Rate 68 68 69 Respiratory Rate 12 12 14 Blood Pressure 109/58 L 100/55 L 106/55 L Pulse Oximetry 96 95 95 01/14/20 11:45 01/14/20 12:00 01/14/20 12:17 Temperature 35.7 C L 36.4 C L 35.7 C L Pulse Rate 69 67 75 Respiratory Rate 16 16 14 Blood Pressure 114/59 L 110/61 110/50 L Pulse Oximetry 98 98 98 01/14/20 13:30 01/14/20 17:40 01/14/20 18:17 Temperature 36.1 C L 36.2 C L Pulse Rate 81 88 97 Respiratory Rate 16 16 Blood Pressure 111/57 L 110/83 Pulse Oximetry 100 97 01/14/20 20:31 01/15/20 02:00 01/15/20 05:28 Temperature 36.9 C 36.7 C 36.8 C Pulse Rate 94 83 73 Respiratory Rate 16 16 16 Blood Pressure 118/51 L 99/51 L 116/49 L Pulse Oximetry 95 95 96 01/15/20 06:05 Temperature Pulse Rate 74 Respiratory Rate Blood Pressure Pulse Oximetry Intake/Output Intake/Output: Intake & Output 01/12/20 01/13/20 01/14/20 01/15/20 23:59 23:59 23:59 23:59 Intake Total 2240 450 Output Total 550 500 Balance 1690 -50 Meds/Results Medications: Active Medications Generic Name Dose Route Start Last Admin Trade Name Freq PRN Reason Stop Dose Admin Acetaminophen 650 mg 01/15/20 07:41 Acetaminophen 325 Mg Tablet PO Q6H PRN Pain Rated 1-3 Hydrocodone Bitart/Acetaminophen 1 tab 01/15/20 07:38 Hydrocodone/Acetaminophen (*Crx) 5-325 Mg Tablet PO Q4H PRN Pain Rated 4-6 Hydrocodone Bitart/Acetaminophen 1 tab 01/15/20 07:38 Hydrocodone/Acetaminophen (*Crx) 10-325 Mg Tablet PO Q4H PRN Pain Rated 7-10 Albuterol 1 puff 01/14/20 11:32 Albuterol Sulfate (*Sp) Aerosol 1 Puff INHALATION Q4H PRN shortness of breath or wheezing Alprazolam 0.5 mg 01/14/20 11:32 Alprazolam (*Crx) 0.5 Mg Tablet PO TID PRN anxiety Amlodipine Besylate 5 mg 01/15/20 09:00 Amlodipine Besylate 5 Mg Tablet PO DAILY ARCADIO Bumetanide 1 mg 01/14/20 17:00 01/14/20 16:33 Bumetanide 1 Mg Tablet PO 1 mg BID ARCADIO Administration Carvedilol 25 mg 01/14/20 18:00 01/15/20 06:05 Carvedilol 25 Mg Tablet PO 25 mg Q12H ARCADIO Administration Cyclobenzaprine HCl 10 mg 01/14/20 13:00 01/14/20 16:33 Cyclobenzaprine Hcl 10 Mg Tablet PO 10 mg TID ARCADIO Administration Enoxaparin Sodium 30 mg 01/14/20 21:00 01/14/20 20:07 Enoxaparin 30 Mg/0.3 Ml Syringe SUB-Q 30 mg Q12HR ARCADIO Administration Gabapentin 600 mg 01/14/20 20:00 01/14/20 20:06 Gabapentin 300 Mg Capsule PO 600 mg DAILY@1999 [facility] Administration Gabapentin 300 mg 01/15/20 09:00 Gabapentin 300 Mg Capsule PO QAM [facility] Hydromorphone HCl 1 mg 01/14/20 11:32 01/14/20 23:15 Hydromorphone Hcl Inj (*Crx) 1 Mg/Ml Syr IV PUSH 1 m
--- NOTE | 2020-01-15 08:15 | P.PNAN_ITS ---
Anes - Prog Note Post-Op Date/Time: 01/15/20 08:15 Cardiovascular status: normal Respiratory status: normal Airway patency: baseline Mental status: baseline Post-Op hydration status: normal Vital Signs: Last Vital Signs Temp 36.8 C 01/15/20 05:28 Pulse 74 01/15/20 06:05 Resp 16 01/15/20 05:28 BP 116/49 L 01/15/20 05:28 Pulse Ox 96 01/15/20 05:28 Pain Score (VAS): 0 I/O: Intake & Output 01/14/20 01/15/20 01/15/20 23:59 07:59 15:59 Intake Total 1380 450 Output Total 550 500 Balance 830 -50 Laboratory Tests 01/15/20 05:16 01/15/20 05:16 01/15/20 01/15/20 05:16 05:16 WBC 20.0 H RBC 4.01 L Hgb 10.4 L Hct 32.4 L MCV 80.8 MCH 25.9 L MCHC 32.1 RDW 13.1 Plt Count 322 MPV 9.8 Immature Gran % (Auto) 1.0 H Neut % (Auto) 89.3 H Lymph % (Auto) 6.7 L [place] % (Auto) 2.9 Eos % (Auto) 0.0 Baso % (Auto) 0.1 L Lymph # (Auto) 1.34 [place] # (Auto) 0.6 Eos # (Auto) 0.0 Baso # (Auto) 0.0 Abs Immat Gran (auto) 0.20 H Absolute Neuts (auto) 17.9 H Absolute Nucleated RBC 0.0 Nucleated RBC % 0.0 Sodium 137 Potassium 3.2 L Chloride 97 L Carbon Dioxide 34 H Anion Gap 6 L BUN 14 Creatinine 1.40 H Estim Creat Clear Calc 41 Estimated GFR 38 L Glucose 144 H Calcium 9.3 Post-procedural complaints: none Patient Feedback: Patient satisfied with anesthetic care.
[2020-01-15] MEDS: POTASSIUM CHLORIDE 20 MEQ TABLET 40 MEQ PO (08:35)
[2020-01-15] MEDS: amLODIPine BESYLATE 5 MG TABLET PO (08:36)
[2020-01-15] MEDS: CHOLECALCIFEROL 1,000 UNITS TABLET 2000 UNITS PO (08:36)
[2020-01-15] MEDS: BUMETANIDE 1 MG TABLET PO ×2 (08:36→17:03)
[2020-01-15] MEDS: CYCLOBENZAPRINE HCL 10 MG TABLET PO ×3 (08:36→17:03)
[2020-01-15] MEDS: ENOXAPARIN 30 MG/0.3 ML SYRINGE SUB-Q ×2 (08:37→20:40)
[2020-01-15] MEDS: POTASSIUM CHLORIDE 20 MEQ TABLET.ER PO (08:37)
[2020-01-15] MEDS: hydrOXYzine HCL 25 MG TABLET PO ×3 (08:37→17:03)
[2020-01-15] MEDS: HYDROcodone/acetaminophen (*CRX) 10-325 MG TABLET 1 TAB PO ×3 (08:40→20:40)
[2020-01-15] MEDS: GABAPENTIN 300 MG CAPSULE PO (09:40)
[2020-01-15] MEDS: GABAPENTIN 300 MG CAPSULE 600 MG PO (20:40)
[2020-01-16] VITALS (10 sets, daily range): BP systolic 110–142; BP diastolic 50–68; PULSE 67–89; RESP 16–22; TEMP 36.1–37.1; O2SAT 95–100
[2020-01-16 05:19] LABS: Hematocrit 31.3 % (37.0-47.0); Hemoglobin 9.9 g/dL (12.0-15.0); Mean Corpuscular HGB Conc 31.6 g/dl (32-36); Mean Corpuscular Hemoglobin 26.6 pg (26-34); Mean Corpuscular Volume 84.1 fl (80-100); Mean Platelet Volume 9.7 fl (7.4-10.4); Platelet Count Result 302 k/mm3 (150-375); Red Blood Count 3.72 M/mm3 (4.2-5.4); Red Cell Distribution Width 13.7 % (11.5-14.5); White Blood Count 15.3 K/mm3 (4.5-10.0)
[2020-01-16 05:42] LABS: Anion Gap 5 mmol/L (8-16); Blood Urea Nitrogen 14 mg/dL (7-17); Calcium 9.2 mg/dL (8.4-10.2); Carbon Dioxide 37 mmol/L (22-30); Chloride 99 mmol/L (98-107); Estimated CRCL calculation 41 ml/min; Estimated Glomerular Filt Rate 38; Glucose 110 mg/dL (65-105); Potassium 3.5 mmol/L (3.4-5.0); Sodium 141 mmol/L (137-145)
[2020-01-16] MEDS: HYDROcodone/acetaminophen (*CRX) 10-325 MG TABLET 1 TAB PO (05:49)
[2020-01-16] MEDS: carvediloL 25 MG TABLET PO ×2 (05:49→17:11)
[2020-01-16] MEDS: ALPRAZolam (*CRX) 0.5 MG TABLET PO ×2 (05:53→21:03)
[2020-01-16] MEDS: ENOXAPARIN 30 MG/0.3 ML SYRINGE SUB-Q ×2 (08:39→21:02)
[2020-01-16] MEDS: CHOLECALCIFEROL 1,000 UNITS TABLET 2000 UNITS PO (08:40)
[2020-01-16] MEDS: POTASSIUM CHLORIDE 20 MEQ TABLET.ER PO (08:41)
[2020-01-16] MEDS: CYCLOBENZAPRINE HCL 10 MG TABLET PO ×3 (08:41→17:17)
[2020-01-16] MEDS: BUMETANIDE 1 MG TABLET PO ×2 (08:41→17:10)
[2020-01-16] MEDS: GABAPENTIN 300 MG CAPSULE PO (08:42)
[2020-01-16] MEDS: hydrOXYzine HCL 25 MG TABLET PO ×3 (08:42→17:17)
[2020-01-16] MEDS: amLODIPine BESYLATE 5 MG TABLET PO (08:46)
--- NOTE | 2020-01-16 10:51 | PM.PNGS ---
Progress Note: A&P Assessment and Plan (1) Colon cancer, ascending: Code(s): C18.2 - Malignant neoplasm of ascending colon Status: Acute Assessment and Plan: doing well, cont routine postop care, soft diet, OOB/IS, anticipate home in am, await path Subjective Subjective Date/Time Seen: 01/16/20 10:51 feels pretty good, ana full liquids, +bowel fxn Review of Systems Review of Systems: All systems reviewed & are unremarkable except as noted in HPI and below Exam Const: General: cooperative, comfortable and no acute distress Resp: Effort & Inspection: normal respiratory effort Auscultation: clear to auscultation bilaterally Cardio: Rate: regular rate Rhythm: regular rhythm GI: Inspection: normal to inspection, distended and incision GI Palp: Yes abdominal tenderness, Yes Soft to palpation, No Firmness to palpation present (GI), Yes Tenderness to palpation present (GI) and No Guarding due to palpation present (GI) Other: soft, sl dist, larry TTP, incisions C/D/I Objective Data Vital Signs Vital Signs: Vital Signs - 24 hr 01/15/20 14:00 01/15/20 17:03 01/15/20 18:00 Temperature 36.5 C 36.7 C Pulse Rate 78 84 78 Respiratory Rate 16 16 Blood Pressure 120/59 L 110/54 L Pulse Oximetry 98 98 01/15/20 20:34 01/16/20 02:00 01/16/20 04:53 Temperature 37.1 C 36.1 C L 36.2 C L Pulse Rate 73 68 77 Respiratory Rate 15 16 16 Blood Pressure 127/55 L 110/53 L 116/54 L Pulse Oximetry 98 98 100 01/16/20 05:49 01/16/20 08:45 01/16/20 08:49 Temperature Pulse Rate 77 76 Respiratory Rate 16 Blood Pressure 115/50 L Pulse Oximetry 100 01/16/20 10:00 Temperature 36.6 C Pulse Rate 67 Respiratory Rate 22 H Blood Pressure 112/53 L Pulse Oximetry 95 Intake/Output Intake/Output: Intake & Output 01/13/20 01/14/20 01/15/20 01/16/20 23:59 23:59 23:59 23:59 Intake Total 2240 2150 Output Total 550 1150 Balance 1690 1000 Meds/Results Medications: Active Medications Generic Name Dose Route Start Last Admin Trade Name Freq PRN Reason Stop Dose Admin Acetaminophen 650 mg 01/15/20 07:41 Acetaminophen 325 Mg Tablet PO Q6H PRN Pain Rated 1-3 Hydrocodone Bitart/Acetaminophen 1 tab 01/15/20 07:38 Hydrocodone/Acetaminophen (*Crx) 5-325 Mg Tablet PO Q4H PRN Pain Rated 4-6 Hydrocodone Bitart/Acetaminophen 1 tab 01/15/20 07:38 01/16/20 05:49 Hydrocodone/Acetaminophen (*Crx) 10-325 Mg Tablet PO 1 tab Q4H PRN Administration Pain Rated 7-10 Albuterol 1 puff 01/14/20 11:32 Albuterol Sulfate (*Sp) Aerosol 1 Puff INHALATION Q4H PRN shortness of breath or wheezing Alprazolam 0.5 mg 01/14/20 11:32 01/16/20 05:53 Alprazolam (*Crx) 0.5 Mg Tablet PO 0.5 mg TID PRN Administration anxiety Amlodipine Besylate 5 mg 01/15/20 09:00 01/16/20 08:46 Amlodipine Besylate 5 Mg Tablet PO 5 mg DAILY ARCADIO Administration Bumetanide 1 mg 01/14/20 17:00 01/16/20 08:41 Bumetanide 1 Mg Tablet PO 1 mg BID ARCADIO Administration Carvedilol 25 mg 01/14/20 18:00 01/16/20 05:49 Carvedilol 25 Mg Tablet PO 25 mg Q12H ARCADIO Administration Cyclobenzaprine HCl 10 mg 01/14/20 13:00 01/16/20 08:41 Cyclobenzaprine Hcl 10 Mg Tablet PO 10 mg TID ARCADIO Administration Enoxaparin Sodium 30 mg 01/14/20 21:00 01/16/20 08:39 Enoxaparin 30 Mg/0.3 Ml Syringe SUB-Q 30 mg Q12HR ARCADIO Administration Gabapentin 600 mg 01/14/20 20:00 01/15/20 20:40 Gabapentin 300 Mg Capsule PO 600 mg DAILY@2000 ARCADIO Administration Gabapentin 300 mg 01/15/20 09:00 01/16/20 08:42 Gabapentin 300 Mg Capsule PO 300 mg QAM ARCADIO Administration Hydromorphone HCl 1 mg 01/14/20 11:32 01/14/20 23:15 Hydromorphone Hcl Inj (*Crx) 1 Mg/Ml Syr IV PUSH 1 mg Q2H PRN Administration Pain Rated 7-10 Hydromorphone HCl 0.5 mg 01/14/20 11:32 Hydromorphone Hcl Inj (*Crx) 1 Mg/Ml Syr IV PUSH Q2H P
[2020-01-16] MEDS: GABAPENTIN 300 MG CAPSULE 600 MG PO (21:03)
[2020-01-16] MEDS: HYDROcodone/acetaminophen (*CRX) 5-325 MG TABLET 1 TAB PO (21:03)
[2020-01-17] MEDS: HYDROcodone/acetaminophen (*CRX) 5-325 MG TABLET 1 TAB PO (03:08)
[2020-01-17 05:28] VITALS: BP 125/62; PULSE 68; RESP 16; TEMP 36; O2SAT 100
[2020-01-17 06:19] VITALS: PULSE 68
[2020-01-17] MEDS: carvediloL 25 MG TABLET PO ×2 (06:19→17:53)
[2020-01-17] MEDS: ALPRAZolam (*CRX) 0.5 MG TABLET PO ×2 (06:19→21:55)
[2020-01-17] MEDS: GABAPENTIN 300 MG CAPSULE PO (08:55)
[2020-01-17] MEDS: POTASSIUM CHLORIDE 20 MEQ TABLET.ER PO (08:55)
[2020-01-17] MEDS: BUMETANIDE 1 MG TABLET PO ×2 (08:56→17:52)
[2020-01-17] MEDS: amLODIPine BESYLATE 5 MG TABLET PO (08:56)
[2020-01-17] MEDS: ENOXAPARIN 30 MG/0.3 ML SYRINGE SUB-Q ×2 (08:56→21:54)
[2020-01-17] MEDS: CHOLECALCIFEROL 1,000 UNITS TABLET 2000 UNITS PO (08:56)
[2020-01-17] MEDS: hydrOXYzine HCL 25 MG TABLET PO ×3 (09:02→17:55)
[2020-01-17] MEDS: CYCLOBENZAPRINE HCL 10 MG TABLET PO ×3 (09:02→17:55)
[2020-01-17 09:06] VITALS: RESP 16; O2SAT 100
--- NOTE | 2020-01-17 11:19 | PM.PNGS ---
Progress Note: A&P Assessment and Plan (1) Colon cancer, ascending: Code(s): C18.2 - Malignant neoplasm of ascending colon Status: Acute Assessment and Plan: doing well, cont routine postop care, encourage OOB/IS, probably home tomorrow Subjective Subjective Date/Time Seen: 01/17/20 11:19 feels ok, very anxious about going home secondary to no help and loose stools, pt c multiple loose BMs but does reports stools seem to be more solid now Review of Systems Review of Systems: All systems reviewed & are unremarkable except as noted in HPI and below Exam Const: General: comfortable and no acute distress Resp: Effort & Inspection: normal respiratory effort Auscultation: clear to auscultation bilaterally Cardio: Rate: regular rate Rhythm: regular rhythm GI: Inspection: normal to inspection, distended and incision GI Palp: Yes abdominal tenderness Other: soft, sl dist, larry TTP, incisions C/D/I Objective Data Vital Signs Vital Signs: Vital Signs - 24 hr 01/16/20 14:00 01/16/20 17:11 01/16/20 17:34 Temperature 37.1 C 36.9 C Pulse Rate 89 88 85 Respiratory Rate 18 18 Blood Pressure 142/63 H 137/64 Pulse Oximetry 96 96 01/16/20 19:39 01/17/20 05:28 01/17/20 06:19 Temperature 36.7 C 36.0 C L Pulse Rate 81 68 68 Respiratory Rate 22 H 16 Blood Pressure 138/68 125/62 Pulse Oximetry 96 100 01/17/20 09:06 Temperature Pulse Rate Respiratory Rate 16 Blood Pressure Pulse Oximetry 100 Intake/Output Intake/Output: Intake & Output 01/14/20 01/15/20 01/16/20 01/17/20 23:59 23:59 23:59 23:59 Intake Total 2240 2150 1440 580 Output Total 550 1150 1200 Balance 1690 1000 1440 -620 Meds/Results Medications: Active Medications Generic Name Dose Route Start Last Admin Trade Name Freq PRN Reason Stop Dose Admin Acetaminophen 650 mg 01/15/20 07:41 Acetaminophen 325 Mg Tablet PO Q6H PRN Pain Rated 1-3 Hydrocodone Bitart/Acetaminophen 1 tab 01/15/20 07:38 01/17/20 03:08 Hydrocodone/Acetaminophen (*Crx) 5-325 Mg Tablet PO 1 tab Q4H PRN Administration Pain Rated 4-6 Hydrocodone Bitart/Acetaminophen 1 tab 01/15/20 07:38 01/16/20 05:49 Hydrocodone/Acetaminophen (*Crx) 10-325 Mg Tablet PO 1 tab Q4H PRN Administration Pain Rated 7-10 Albuterol 1 puff 01/14/20 11:32 Albuterol Sulfate (*Sp) Aerosol 1 Puff INHALATION Q4H PRN shortness of breath or wheezing Alprazolam 0.5 mg 01/14/20 11:32 01/17/20 06:19 Alprazolam (*Crx) 0.5 Mg Tablet PO 0.5 mg TID PRN Administration anxiety Amlodipine Besylate 5 mg 01/15/20 09:00 01/17/20 08:56 Amlodipine Besylate 5 Mg Tablet PO 5 mg DAILY ARCADIO Administration Bumetanide 1 mg 01/14/20 17:00 01/17/20 08:56 Bumetanide 1 Mg Tablet PO 1 mg BID ARCADIO Administration Carvedilol 25 mg 01/14/20 18:00 01/17/20 06:19 Carvedilol 25 Mg Tablet PO 25 mg Q12H ARCADIO Administration Cyclobenzaprine HCl 10 mg 01/14/20 13:00 01/17/20 09:02 Cyclobenzaprine Hcl 10 Mg Tablet PO 10 mg TID ARCADIO Administration Enoxaparin Sodium 30 mg 01/14/20 21:00 01/17/20 08:56 Enoxaparin 30 Mg/0.3 Ml Syringe SUB-Q 30 mg Q12HR ARCADIO Administration Gabapentin 600 mg 01/14/20 20:00 01/16/20 21:03 Gabapentin 300 Mg Capsule PO 600 mg DAILY@1999 ARCADIO Administration Gabapentin 300 mg 01/15/20 09:00 01/17/20 08:55 Gabapentin 300 Mg Capsule PO 300 mg QAM ARCADIO Administration Hydromorphone HCl 1 mg 01/14/20 11:32 01/14/20 23:15 Hydromorphone Hcl Inj (*Crx) 1 Mg/Ml Syr IV PUSH 1 mg Q2H PRN Administration Pain Rated 7-10 Hydromorphone HCl 0.5 mg 01/14/20 11:32 Hydromorphone Hcl Inj (*Crx) 1 Mg/Ml Syr IV PUSH Q2H PRN Pain Rated 4-6 Hydroxyzine HCl 25 mg 01/14/20 13:00 01/17/20 09:02 Hydroxyzine Hcl 25 Mg Tablet PO 25 mg TID ARCADIO Administration Ondansetron HCl 4 mg 01/14/20 11:32 01/15/20 00:05 Onda
[2020-01-17 14:00] VITALS: BP 150/84; PULSE 76; RESP 16; TEMP 37.1; O2SAT 97
[2020-01-17 17:53] VITALS: PULSE 68
[2020-01-17 18:00] VITALS: BP 127/55; PULSE 92; RESP 16; TEMP 36.7; O2SAT 95
[2020-01-17] MEDS: HYDROcodone/acetaminophen (*CRX) 10-325 MG TABLET 1 TAB PO (21:53)
[2020-01-17] MEDS: GABAPENTIN 300 MG CAPSULE 600 MG PO (21:54)
[2020-01-18] VITALS: BP 111/44; PULSE 81; RESP 18; TEMP 36.7; O2SAT 96
[2020-01-18 06:00] VITALS: BP 116/59; PULSE 71; RESP 20; TEMP 36.2; O2SAT 98
[2020-01-18 06:23] VITALS: PULSE 84
[2020-01-18] MEDS: carvediloL 25 MG TABLET PO (06:23)
[2020-01-18 08:00] VITALS: RESP 20
[2020-01-18] MEDS: GABAPENTIN 300 MG CAPSULE PO (08:57)
[2020-01-18] MEDS: BUMETANIDE 1 MG TABLET PO (08:57)
[2020-01-18] MEDS: amLODIPine BESYLATE 5 MG TABLET PO (08:57)
[2020-01-18] MEDS: CHOLECALCIFEROL 1,000 UNITS TABLET 2000 UNITS PO (08:57)
[2020-01-18] MEDS: POTASSIUM CHLORIDE 20 MEQ TABLET.ER PO (08:57)
[2020-01-18] MEDS: hydrOXYzine HCL 25 MG TABLET PO (08:59)
[2020-01-18] MEDS: ENOXAPARIN 30 MG/0.3 ML SYRINGE SUB-Q (09:00)
[2020-01-18] MEDS: CYCLOBENZAPRINE HCL 10 MG TABLET PO (09:00)
[2020-01-18] MEDS: HYDROcodone/acetaminophen (*CRX) 10-325 MG TABLET 1 TAB PO (09:00)
--- NOTE | 2020-01-18 11:42 | PM.DS ---
DS: Admitting Diagnosis Admitting Diagnosis Admitting Diagnosis: Ascending Colon Cancer DS: Discharge Diagnosis Discharge Diagnosis (1) Colon cancer, ascending: Code(s): C18.2 - Malignant neoplasm of ascending colon Status: Acute DS: Summary Hospital Course Reason for hospitalization: Ascending colon cancer Hospital Course: Eladia is a 64-year-old woman who presented for colon resection. She was found to have colon cancer and a recent colonoscopy by Dr. Longoria. She underwent hand assisted laparoscopic right hemicolectomy on 01/14/2020. She was admitted for recovery after the surgery and was started on a clear liquid diet initially. Pain was controlled with IV pain medications. On postop day 1 her bowels were already moving. She was advanced to a full liquid diet and transitioned to oral pain medications. She was remaining hemodynamically stable. On postop day 2 she was advanced to a soft diet. She continued to have a fair amount of loose stool, but this gradually improved as her diet became more solid. She was up ambulating without too much difficulty. Pathology showed evidence of T3 N0 adenocarcinoma. Twenty-one benign lymph nodes removed. This is a stage IIA adenocarcinoma of the ascending colon. On 01/17 she was doing much better with her diet and her bowels were becoming more solid. She was discharged on 01/17. Status at Discharge Functional status at discharge: independent ambulation Overall status at discharge: patient is progressing back to baseline Time Spent with Patient Time attestation: Total time spent providing and/or coordinating discharge services: Time spent: Less than 30 minutes Exam Const: General: comfortable and no acute distress Resp: Effort & Inspection: normal respiratory effort Auscultation: clear to auscultation bilaterally Cardio: Rate: regular rate Rhythm: regular rhythm Heart sounds: S1 normal heart sound present and S2 normal heart sound present GI: Inspection: non-distended and incision (Clean/dry/intact) GI Palp: Yes Soft to palpation, Yes Tenderness to palpation present (GI) (Incisional) and No Guarding due to palpation present (GI) Auscultation: normal bowel sounds DS: Data Data Completed and Pending Completed studies during hospitalization: Pending at discharge 01/14/20 09:26 Surgical [PTH] Routine Final Diagnosis A. RIGHT COLON WITH TERMINAL ILEUM AND APPENDIX, HAND-ASSISTED LAPAROSCOPIC RIGHT HEMICOLECTOMY: - COLONIC ADENOCARCINOMA, 5.2 x 3.2 x 2.6 CM, IN CECUM AND ILEOCECAL VALVE, INVADING THROUGH MUSCULARIS PROPRIA AND EXTENSIVELY INVOLVING PERICOLONIC FAT, NOT INVOLVING RESECTION MARGINS. - TWENTY-ONE BENIGN PERICOLONIC LYMPH NODES (0/21) (SEE SYNOPTIC REPORTING BELOW). - APPENDIX WITH FIBROUS OBLITERATION OF DISTAL TIP. - ASCENDING COLON WITH SUBMUCOSAL LIPOMA, 1.0 CM IN GREATEST DIMENSION. Comment: Rn Medication tumor tissue will be sent for the predictive panel for colorectal carcinoma (addendum report to follow). The synoptic reporting is as follows: SURGICAL PATHOLOGY CANCER CASE SUMMARY COLON AND RECTUM: RESECTION PROTOCOL POSTING DATE: JULY 2016 (COLON RECTUM RESECTION 4.0.1.0) Procedure: Right hemicolectomy. Tumor site: Cecum and ileocecal valve. Tumor size: 5.2 x 3.2 x 2.6 cm. Macroscopic tumor perforation: Not identified. Histologic type: Adenocarcinoma. Histologic grade: G2 moderately differentiated. Tumor extension: Tumor invades through the muscularis propria into pericolorectal tissue. Margins: All margins are uninvolved by invasive carcinoma, high-grade dysplasia, intramucosal adenocarcinoma, and adenoma; Margins examined: Proximal, distal, and radial. Treatment effect: No known presurgical therapy. Lymphovascular invasion: Not identified. Perineural invasion: Not identified. Tumor deposits: Not identified. Regional lymph nodes: Number of lymph nodes involved: 0; Number of l
== END 2020-01-18 13:30 | disposition home or self-care (01) | DRG 331 ==
LOC: ANH2MED 14:19
PROVIDERS: Admitting Provider Surgery; PCP Family Medicine; Visit Provider Surgery
PROC: 0DTF4ZZ Resection of Right Large Intestine, Percutaneous Endoscopic Approach (ICD-10-PCS; CPT 44204; principal; 2020-01-14 08:30)
DX: C18.2 Malignant neoplasm of ascending colon (principal); F41.8 Other specified anxiety disorders; K58.9 Irritable bowel syndrome, unspecified; G62.9 Polyneuropathy, unspecified; I10 Essential (primary) hypertension; F40.01 Agoraphobia with panic disorder; E87.6 Hypokalemia; M54.2 Cervicalgia; G89.29 Other chronic pain; Z90.710 Acquired absence of both cervix and uterus; Z87.891 Personal history of nicotine dependence
CPT/HCPCS: 36415; 80048; 85025; 85027; 88309; A9270; C9290; J0690; J1100; J1170; J1650; J1885; J2405; J2704; J2710; J3010; J7030; J7120

== ENCOUNTER 2020-02-03 09:24 | Outpatient (CLI) | payer BC, SELFPAY ==
--- NOTE | ~2020-02-03 | MM_ITS ---
EXAMINATION: MM screening [facility] BI w nataly HISTORY: Screening mammogram TECHNIQUE: Craniocaudal and mediolateral oblique 3-D tomosynthesis images were obtained and synthetic 2-D images were generated. CAD analysis was submitted and interpreted. COMPARISON: 10/24/2016 diagnostic right mammogram views (lateral medial and spot MLO views of right br east) BREAST PARENCHYMAL COMPOSITION: There are scattered areas of fibroglandular density. FINDINGS: There is asymmetry in the mid to upper outer left breast. Diagnostic left mammogram is jessica mmended, with ultrasound if required. Otherwise no suspicious mass, architectural distortion, malignant calcification, skin thickening or r etraction of either breast is detected. IMPRESSION: 1. Left breast mid-upper outer asymmetry 2. Diagnostic left mammogram is recommended, with ultrasound if required. BI-RADS Category 0: Incomplete: Needs additional imaging evaluation. Reviewed, dictated and finalized at location A. NICKER
== END 2020-02-03 09:25 | disposition home or self-care (01) ==
PROVIDERS: PCP Family Medicine; Visit Provider Physician Assistant
DX: Z12.31 Encounter for screening mammogram for malignant neoplasm of breast (principal); R92.8 Other abnormal and inconclusive findings on diagnostic imaging of breast
CPT/HCPCS: 77063; 77067

== ENCOUNTER 2020-02-03 11:46 | Outpatient (CLI) | payer BC, SELFPAY ==
[2020-02-03 12:49] LABS: Iron 48 ug/dL (37-170)
[2020-02-03 12:58] LABS: Percent Iron Saturation 12 % (20-50)
== END 2020-02-03 11:47 | disposition home or self-care (01) ==
LOC: ANHLAB 11:47
PROVIDERS: PCP Family Medicine; Visit Provider Nurse Practitioner Family
DX: D50.9 Iron deficiency anemia, unspecified (principal)
CPT/HCPCS: 36415; 83540; 83550

== ENCOUNTER 2020-02-26 10:07 | Outpatient (CLI) | payer BC, SELFPAY ==
[2020-02-26 10:51] LABS: Creatinine Urine 97.6 mg/dL; Total Protein Urine Random 21 mg/dL; Ur Ttl Prot Creatinine Ratio 0.22 mg/mg (0-0.20)
[2020-02-26 10:57] LABS: Anion Gap 8 mmol/L (8-16); Blood Urea Nitrogen 10 mg/dL (7-17); Calcium 9.3 mg/dL (8.4-10.2); Carbon Dioxide 34 mmol/L (22-30); Chloride 97 mmol/L (98-107); Estimated Glomerular Filt Rate 35; Glucose 112 mg/dL (65-105); Phosphorus 3.9 mg/dL (2.5-4.5); Potassium 3.3 mmol/L (3.4-5.0); Sodium 139 mmol/L (137-145)
== END 2020-02-26 10:08 | disposition home or self-care (01) ==
PROVIDERS: PCP Family Medicine; Visit Provider Internal Medicine Nephrology
DX: R60.0 Localized edema (principal); I12.9 Hypertensive chronic kidney disease with stage 1 through stage 4 chronic kidney disease, or unspecified chronic kidney disease; N18.31 Chronic kidney disease, stage 3a
CPT/HCPCS: 36415; 80069; 82570; 84156

== ENCOUNTER 2020-03-03 08:37 | Outpatient (CLI) | payer BC, SELFPAY ==
[2020-03-03 08:57] LABS: Basophils Absolute Auto 0.1 K/mm3 (0.0-0.1); Basophils Percent Auto 0.6 % (0.2-1.2); Eosinophils Absolute Auto 0.3 K/mm3 (0-0.3); Eosinophils Percent Auto 3.5 % (0-4.4); Hematocrit 34.7 % (37.0-47.0); Hemoglobin 11.5 g/dL (12.0-15.0); Immature Granulocyte Absolute 0.04 K/mm3 (0.00-0.031); Immature Granulocyte Percent A 0.4 % (0-0.5); Lymphocytes Percent Auto 31.5 % (18.3-44.2); Mean Corpuscular HGB Conc 33.1 g/dl (32-36); Mean Corpuscular Hemoglobin 26.7 pg (26-34); Mean Corpuscular Volume 80.7 fl (80-100); Mean Platelet Volume 9.1 fl (7.4-10.4); Monocytes Absolute Auto 0.7 K/mm3 (0.1-0.6); Platelet Count Result 327 k/mm3 (150-375); Red Cell Distribution Width 15.9 % (11.5-14.5); White Blood Count 8.9 K/mm3 (4.5-10.0)
[2020-03-03 09:07] LABS: Blood Urea Nitrogen 17 mg/dL (8-26); Carbon Dioxide 32 mmol/L (22-30); Chloride 91 mmol/L (98-109); Estimated Glomerular Filt Rate 28; Glucose 133 mg/dL (70-105); Potassium 3.2 mmol/L (3.5-4.9); Sodium 135 mmol/L (138-146)
[2020-03-03 09:33] LABS: Alanine Aminotransferase 19 U/L (4-35); Albumin Level 3.8 g/dL (3.5-5.1); Alkaline Phosphatase 127 U/L (38-126); Anion Gap 8 mmol/L (8-16); Aspartate Amino Transferase 26 U/L (14-36); Bilirubin,Total 0.6 mg/dL (0.2-1.3); Blood Urea Nitrogen 18 mg/dL (7-17); Calcium 9.4 mg/dL (8.4-10.2); Carbon Dioxide 34 mmol/L (22-30); Chloride 93 mmol/L (98-107); Estimated Glomerular Filt Rate 33; Glucose 131 mg/dL (65-105); Potassium 3.6 mmol/L (3.4-5.0); Sodium 135 mmol/L (137-145)
== END 2020-03-03 08:38 | disposition home or self-care (01) ==
LOC: ANHLAB 08:39
PROVIDERS: Family Provider Family Medicine; PCP Family Medicine; Visit Provider Internal Medicine Hematology & Oncology
DX: C18.2 Malignant neoplasm of ascending colon (principal)
CPT/HCPCS: 36415; 80048; 80053; 85025

== ENCOUNTER 2020-03-10 11:41 | Outpatient (CLI) | payer BC, SELFPAY ==
--- NOTE | ~2020-03-10 | MMUS_ITS ---
EXAMINATION: MM diagnostic mammo unilat LT, US breast LT limited HISTORY: Follow-up left breast asymmetry TECHNIQUE: Additional 3-D tomosynthesis images of the left breast were performed and synthetic 2-D im ages were generated. CAD analysis was submitted and interpreted. High resolution Limited left breast ultrasound was performed. COMPARISON: 02/03/2020 BREAST PARENCHYMAL COMPOSITION: Breast composed of scattered areas of fibroglandular density. FINDINGS: MAMMOGRAPHIC FINDINGS: There are no suspicious masses, calcifications or architectural distortion in the left breast to sugg est malignancy. ULTRASOUND: Limited left breast ultrasound: Normal heterogeneous echotexture without focal solid or cystic mass. IMPRESSION: 1. No evidence for malignancy in the left breast. 2. Routine yearly screening mammogram and regular clinical breast examination are recommended. BI-RADS Category 1: Negative Reviewed, dictated and finalized at location A. H COORDINATOR IMPRESSION: 1. No evidence for malignancy in the left breast. 2. Routine yearly screening mammogram and regular clinical breast examination a re recommended. BI-RADS Category 1: Negative
== END 2020-03-10 11:42 | disposition home or self-care (01) ==
PROVIDERS: Family Provider Family Medicine; PCP Family Medicine; Visit Provider Physician Assistant
DX: C18.2 Malignant neoplasm of ascending colon (principal)
CPT/HCPCS: 76642; 77065

== ENCOUNTER 2020-03-11 07:10 | Outpatient (NON) | payer BC, SELFPAY ==
[2020-03-12 13:29] LABS: SARS-CoV-2 RNA PCR Negative
== END 2020-03-11 07:11 ==
LOC: ANHCOVIDDT 07:11
PROVIDERS: Family Provider Family Medicine; PCP Family Medicine; Visit Provider Physician Assistant Medical
DX: R68.89 Other general symptoms and signs (principal); Z20.822 Contact with and (suspected) exposure to COVID-19
CPT/HCPCS: C9803; U0003; U0005

== ENCOUNTER 2020-03-31 08:57 | Outpatient (CLI) | payer BC, SELFPAY ==
[2020-03-31 09:28] LABS: Basophils Percent Auto 0.5 % (0.2-1.2); Eosinophils Absolute Auto 0.2 K/mm3 (0-0.3); Eosinophils Percent Auto 3.1 % (0-4.4); Hematocrit 37.4 % (37.0-47.0); Hemoglobin 12.2 g/dL (12.0-15.0); Immature Granulocyte Absolute 0.03 K/mm3 (0.00-0.031); Immature Granulocyte Percent A 0.4 % (0-0.5); Lymphocytes Absolute Auto 2.99 K/mm3 (0.9-3.2); Lymphocytes Percent Auto 38.1 % (18.3-44.2); Mean Corpuscular HGB Conc 32.6 g/dl (32-36); Monocytes Absolute Auto 0.6 K/mm3 (0.1-0.6); Neutrophils Absolute Auto 3.9 K/mm3 (1.3-6.7); Neutrophils Percent Auto 49.9 % (45.5-73.1); Platelet Count Result 313 k/mm3 (150-375); Red Blood Count 4.35 M/mm3 (4.2-5.4); Red Cell Distribution Width 19.7 % (11.5-14.5); White Blood Count 7.9 K/mm3 (4.5-10.0)
[2020-03-31 09:32] LABS: Blood Urea Nitrogen 12 mg/dL (8-26); Carbon Dioxide 33 mmol/L (22-30); Chloride 95 mmol/L (98-109); Estimated Glomerular Filt Rate 33; Glucose 93 mg/dL (70-105); Potassium 3.4 mmol/L (3.5-4.9); Sodium 139 mmol/L (138-146)
[2020-03-31 13:18] LABS: Alanine Aminotransferase 24 U/L (4-35); Albumin Level 3.8 g/dL (3.5-5.1); Alkaline Phosphatase 138 U/L (38-126); Anion Gap 9 mmol/L (8-16); Aspartate Amino Transferase 32 U/L (14-36); Bilirubin,Total 0.6 mg/dL (0.2-1.3); Blood Urea Nitrogen 13 mg/dL (7-17); Calcium 9.5 mg/dL (8.4-10.2); Carbon Dioxide 36 mmol/L (22-30); Chloride 94 mmol/L (98-107); Estimated Glomerular Filt Rate 35; Glucose 94 mg/dL (65-105); Sodium 139 mmol/L (137-145)
== END 2020-03-31 08:58 | disposition home or self-care (01) ==
LOC: ANHLAB 08:59
PROVIDERS: PCP Family Medicine; Visit Provider Internal Medicine Hematology & Oncology
DX: C18.2 Malignant neoplasm of ascending colon (principal)
CPT/HCPCS: 36415; 80048; 80053; 85025

== ENCOUNTER 2020-05-03 13:11 | Outpatient (CLI) | payer BC, SELFPAY ==
[2020-05-03 13:51] LABS: Basophils Absolute Auto 0.1 K/mm3 (0.0-0.1); Basophils Percent Auto 0.5 % (0.2-1.2); Eosinophils Absolute Auto 0.2 K/mm3 (0-0.3); Eosinophils Percent Auto 2.2 % (0-4.4); Hematocrit 37.2 % (37.0-47.0); Hemoglobin 12.4 g/dL (12.0-15.0); Immature Granulocyte Absolute 0.04 K/mm3 (0.00-0.031); Immature Granulocyte Percent A 0.4 % (0-0.5); Lymphocytes Absolute Auto 2.88 K/mm3 (0.9-3.2); Lymphocytes Percent Auto 29.1 % (18.3-44.2); Mean Corpuscular HGB Conc 33.3 g/dl (32-36); Mean Corpuscular Hemoglobin 29.5 pg (26-34); Mean Corpuscular Volume 88.6 fl (80-100); Mean Platelet Volume 8.9 fl (7.4-10.4); Monocytes Absolute Auto 0.7 K/mm3 (0.1-0.6); Monocytes Percent Auto 7.3 % (2.6-8.5); Neutrophils Percent Auto 60.5 % (45.5-73.1); Platelet Count Result 349 k/mm3 (150-375); Red Cell Distribution Width 20.9 % (11.5-14.5); White Blood Count 9.9 K/mm3 (4.5-10.0)
[2020-05-03 14:03] LABS: Alanine Aminotransferase 24 U/L (4-35); Albumin Level 3.8 g/dL (3.5-5.1); Alkaline Phosphatase 128 U/L (38-126); Anion Gap 5 mmol/L (8-16); Aspartate Amino Transferase 30 U/L (14-36); Bilirubin,Total 1.1 mg/dL (0.2-1.3); Blood Urea Nitrogen 15 mg/dL (7-17); Calcium 9.8 mg/dL (8.4-10.2); Carbon Dioxide 33 mmol/L (22-30); Chloride 99 mmol/L (98-107); Estimated Glomerular Filt Rate 35; Glucose 115 mg/dL (65-105); Potassium 4.3 mmol/L (3.4-5.0); Sodium 137 mmol/L (137-145)
== END 2020-05-03 13:12 | disposition home or self-care (01) ==
PROVIDERS: PCP Family Medicine; Visit Provider Internal Medicine Hematology & Oncology
DX: C18.2 Malignant neoplasm of ascending colon (principal)
CPT/HCPCS: 36415; 80053; 82378; 85025

== ENCOUNTER 2020-05-04 08:30 | Outpatient (CLI) | payer BC, SELFPAY ==
--- NOTE | ~2020-05-04 | CT_ITS ---
EXAMINATION: CT abdomen pelvis w con DATE: 05/04/2020 09:07 INDICATION: Colon cancer TECHNIQUE: Computed tomography (CT) of the abdomen and pelvis was performed with 100 cc Omnipaque 350 intravenous contrast. Automated exposure control and iterative reconstruction technique were employe d. Exam dose: 601.36 mGy-cm total exam DLP. COMPARISON: 12/25/2019 CT abdomen pelvis FINDINGS: There is mild discoid atelectasis or scarring in the lower lung zones. Normal heart size. No pericardial or pleural effusion. There is prominent hepatic steatosis with relative sparing adjacent to the gallbladder. No hepatic sp robert-occupying mass lesion is evident. Normal splenic size. No pancreatic mass lesion, calcification o r ductal dilatation. There are 2 approximately 13 mm faceted gallstones. No gallbladder wall thickening or pericholecystic fluid or fat stranding is noted. No bile duct dilatation. Normal morphology of the adrenal glands. There are multiple left renal cysts, the largest approximately 1.7 cm. No ureteral calculus or hydrou reteronephrosis. The urinary bladder is unremarkable. Status post hysterectomy. There is normal caliber of the abdominal aorta. No intraperitoneal or retroperitoneal or pelvic mass lesion or adenopathy or ascites. Partial resection of the right colon for history of ascending colon carcinoma. No bowel obstruction, bowel wall thickening, pneumatosis or intraperitoneal free air is detected. Small fat-containing umbilical hernia. Diffuse osteopenia. Hemangioma of T12 vertebral body. Borderline grade 1/grade 2 anterolisthesis and prominent degenerative disc disease at L5-S1 IMPRESSION: Partial right colectomy for history of ascending colon carcinoma; no recurrent or metast atic disease is evident Prominent hepatic steatosis Cholelithiasis Left renal cysts Status post hysterectomy Reviewed, dictated and finalized at Location A. Reviewed, dictated and finalized at location B. IMPRESSION: Partial right colectomy for history of ascending colon carcinoma; no recurrent or metastatic disease is evident Prominent hepatic steatosis Cholelithiasis Left renal cysts Status post hysterectomy
== END 2020-05-04 08:31 | disposition home or self-care (01) ==
PROVIDERS: PCP Family Medicine; Visit Provider Internal Medicine Hematology & Oncology
DX: C18.2 Malignant neoplasm of ascending colon (principal); K76.0 Fatty (change of) liver, not elsewhere classified; K80.20 Calculus of gallbladder without cholecystitis without obstruction; N28.1 Cyst of kidney, acquired
CPT/HCPCS: 74177; Q9967

== ENCOUNTER 2020-05-12 12:55 | Outpatient (CLI) | payer BC, SELFPAY ==
[2020-05-12 13:39] LABS: Basophils Percent Auto 0.4 % (0.2-1.2); Eosinophils Absolute Auto 0.2 K/mm3 (0-0.3); Eosinophils Percent Auto 2.5 % (0-4.4); Hematocrit 36.7 % (37.0-47.0); Hemoglobin 12.4 g/dL (12.0-15.0); Immature Granulocyte Absolute 0.03 K/mm3 (0.00-0.031); Immature Granulocyte Percent A 0.4 % (0-0.5); Lymphocytes Absolute Auto 2.83 K/mm3 (0.9-3.2); Lymphocytes Percent Auto 39.7 % (18.3-44.2); Mean Corpuscular HGB Conc 33.8 g/dl (32-36); Mean Corpuscular Hemoglobin 30.4 pg (26-34); Mean Platelet Volume 9.3 fl (7.4-10.4); Monocytes Absolute Auto 0.7 K/mm3 (0.1-0.6); Monocytes Percent Auto 9.3 % (2.6-8.5); Neutrophils Absolute Auto 3.4 K/mm3 (1.3-6.7); Neutrophils Percent Auto 47.7 % (45.5-73.1); Platelet Count Result 370 k/mm3 (150-375); Red Blood Count 4.08 M/mm3 (4.2-5.4); Red Cell Distribution Width 21.2 % (11.5-14.5); White Blood Count 7.1 K/mm3 (4.5-10.0)
[2020-05-12 14:53] LABS: Alanine Aminotransferase 26 U/L (4-35); Albumin Level 4.3 g/dL (3.5-5.1); Alkaline Phosphatase 129 U/L (38-126); Anion Gap 6 mmol/L (8-16); Aspartate Amino Transferase 47 U/L (14-36); Blood Urea Nitrogen 18 mg/dL (7-17); Calcium 9.8 mg/dL (8.4-10.2); Carbon Dioxide 33 mmol/L (22-30); Chloride 98 mmol/L (98-107); Estimated Glomerular Filt Rate 30; Glucose 120 mg/dL (65-105); Potassium 3.5 mmol/L (3.4-5.0); Sodium 137 mmol/L (137-145)
== END 2020-05-12 12:56 | disposition home or self-care (01) ==
LOC: ANHLAB 13:01
PROVIDERS: PCP Family Medicine; Visit Provider Internal Medicine Hematology & Oncology
DX: C18.2 Malignant neoplasm of ascending colon (principal)
CPT/HCPCS: 36415; 80053; 82378; 85025

== ENCOUNTER 2020-06-12 17:15 | Inpatient (IN) | payer BC, SELFPAY ==
--- NOTE | ~2020-06-12 | CT_ITS ---
EXAMINATION: CT brain wo con DATE: 06/12/2020 18:02 INDICATION: Syncope. Recent fall with head injury 2 days prior. TECHNIQUE: Computed tomography (CT) of the head was performed without intravenous contrast. Sagittal and coronal reconstructions were performed. The mA was adjusted according to patient size. Iterative reconstruction technique was employed. The dose-length product was 605.33 mGy-cm. COMPARISON: head CT dated 09/14/2019 and MR dated 09/19/2019 FINDINGS: No fracture. No acute intracranial hemorrhage, acute infarction or abnormal extra axial fluid collect ion. Prominent perivascular space at the bilateral basal ganglia. Ventricles are normal and symmetric . No mass/mass effect. The orbits, paranasal sinuses and mastoid air cells are normal. IMPRESSION: 1. Normal aging brain. No fracture or acute intracranial process. Reviewed, dictated and finalized at location A.
--- NOTE | ~2020-06-12 | XR_ITS ---
EXAMINATION: XR chest 1V portable DATE: 06/12/2020 17:48 INDICATION: Syncope TECHNIQUE: frontal view of the chest was obtained. COMPARISON: Chest radiograph dated 09/12/[address] dated 01/11/2020 FINDINGS: Chronic mild linear discoid atelectasis at the lingula and the left midlung zone. Remainder of the aurelia ngs are clear with no other airspace opacities, pulmonary edema, pleural effusion or pneumothorax. Th e cardiomediastinal silhouette is normal. Visualized bones and soft tissues are unremarkable. IMPRESSION: 1. No acute cardiopulmonary disease. Reviewed, dictated and finalized at location A.
[2020-06-12 17:23] VITALS: BP 124/74; PULSE 79; PULSE 80; RESP 11; RESP 18; TEMP 37.3; O2SAT 95
[2020-06-12 17:31] VITALS: BP 121/69; PULSE 77; RESP 20; O2SAT 95
--- NOTE | 2020-06-12 17:34 | PC.NURSE ---
IVF opened wide per order DR. Car.
--- NOTE | 2020-06-12 17:40 | ECG_ITS ---
Measurements Intervals [place] Rate: 75 P: 43 GA: 198 QRS: -6 QRSD: 94 T: 27 QT: 393 QTc: 440 Interpretive Statements SINUS RHYTHM NONSPECIFIC ST & T-WAVE ABNORMALITY- DIFFUSE LEADS BASELINE ARTIFACT- I, II, III, AVR, AVL, AVF, V1, V3-V6 BORDERLINE ECG Electronically Signed On 06-13-2020 6:37:00 CDT by Misael Torrez D.O.
[2020-06-12 17:46] VITALS: BP 97/78; PULSE 81; RESP 13; O2SAT 100
--- NOTE | 2020-06-12 17:57 | PC.NURSE ---
pt to CT via stretcher.
[2020-06-12 18:00] LABS: Basophils Percent Auto 0.2 % (0.2-1.2); Eosinophils Absolute Auto 0.1 K/mm3 (0-0.3); Eosinophils Percent Auto 0.9 % (0-4.4); Hematocrit 36.1 % (37.0-47.0); Hemoglobin 12.7 g/dL (12.0-15.0); Immature Granulocyte Absolute 0.09 K/mm3 (0.00-0.031); Immature Granulocyte Percent A 0.7 % (0-0.5); Lymphocytes Absolute Auto 1.96 K/mm3 (0.9-3.2); Lymphocytes Percent Auto 14.7 % (18.3-44.2); Mean Corpuscular HGB Conc 35.2 g/dl (32-36); Mean Corpuscular Hemoglobin 32.4 pg (26-34); Mean Corpuscular Volume 92.1 fl (80-100); Mean Platelet Volume 9.5 fl (7.4-10.4); Monocytes Absolute Auto 1.1 K/mm3 (0.1-0.6); Neutrophils Absolute Auto 10.1 K/mm3 (1.3-6.7); Neutrophils Percent Auto 75.5 % (45.5-73.1); Nucleated Red Blood Cells Perc 0.2 % (0.0-0.2); Platelet Count Result 407 k/mm3 (150-375); Red Blood Count 3.92 M/mm3 (4.2-5.4); Red Cell Distribution Width 20.4 % (11.5-14.5); White Blood Count 13.3 K/mm3 (4.5-10.0)
[2020-06-12 18:10] LABS: Alanine Aminotransferase 20 U/L (4-35); Albumin Level 3.3 g/dL (3.5-5.1); Alkaline Phosphatase 93 U/L (38-126); Anion Gap 2 mmol/L (8-16); Aspartate Amino Transferase 35 U/L (14-36); Bilirubin,Total 1.2 mg/dL (0.2-1.3); Blood Urea Nitrogen 11 mg/dL (7-17); Calcium 9.1 mg/dL (8.4-10.2); Carbon Dioxide 36 mmol/L (22-30); Chloride 95 mmol/L (98-107); Estimated Glomerular Filt Rate 38; Glucose 116 mg/dL (65-105); INR 1.2; Lipase 56 U/L (23-300); Potassium 2.9 mmol/L (3.4-5.0); Prothrombin Time 15.8 Seconds (11.1-14.7); Sodium 133 mmol/L (137-145)
[2020-06-12 18:11] LABS: Lactic Acid Reflex 0.9 mmol/L (0.7-2.1)
--- NOTE | 2020-06-12 18:47 | PC.NURSE ---
Initial IVF bolus (started per EMS) complete.
[2020-06-12 18:48] VITALS: BP 101/55; BP 92/56; PULSE 77; PULSE 82
[2020-06-12] MEDS: SODIUM CHLORIDE 0.9% IV 1,000 ML 999 ML IV CONT (18:57)
[2020-06-12] MEDS: MORPHINE SULFATE (*CRX) 2 MG/ML INJ IV PUSH ×2 (19:07→22:35)
--- NOTE | 2020-06-12 19:51 | ED.GENADULT ---
HPI - General Adult General Chief complaint: Fall Stated complaint: freq falls/syncope/colon ca Time Seen by Provider: 06/12/20 17:21 Source: patient Mode of arrival: EMS Limitations: no limitations History of Present Illness HPI narrative: 64-year-old with a history of colon CA presently going through chemotherapy last chemo was 1 week ago presents to the ER with complaints of multiple falls. Patient states that every time she stands up she feels extremely dizzy fell 2 days ago hit the door handle on the right orbit she denied any loss of consciousness no blurry vision. She states that since this morning she fell multiple times. She feels extremely weak. She also states that she has been having constant diarrhea for past 1 week. No history of fever or chills. Denies any abdominal pain. No blood in the stool. Onset (ago): day(s) (2) Location: face Relieving factors: none Exacerbating factors: other (Standing up) Associated symptoms: denies other symptoms Related Data Home Medications Medication Instructions Recorded Confirmed cholecalciferol (vitamin D3) 50 mcg PO DAILY 09/12/19 02/29/20 bumetanide 1 mg tablet 1 mg PO Q12H 11/18/19 02/29/20 Centrum Silver Women 1 tablet PO DAILY 01/04/20 02/29/20 Allergies Allergy/AdvReac Type Severity Reaction Status Date / Time levofloxacin Allergy Severe Hallucinati Verified 06/12/20 17:31 ons Penicillins Allergy Severe HIVES Verified 06/12/20 17:31 A CHILD aspirin Allergy Mild ITCHING, Verified 06/12/20 17:31 GI UPSET carisoprodol AdvReac Mild Gastrointestinal Verified 06/12/20 17:31 Upset salicylates AdvReac Mild GI UPSET Verified 06/12/20 17:31 Review of Systems Review of Systems: All systems reviewed & are unremarkable except as noted in HPI and below Constitutional: Constitutional: Reports no additional constitutional complaints Eyes: Eyes: Reports no additional eye complaints ENT: Reports system reviewed and no additional complaints, except as documented Cardiovascular: Cardiovascular: Reports no additional cardiovascular complaints Respiratory: Respiratory: Reports no additional respiratory complaints Gastrointestinal: Gastrointestinal: Reports as per HPI Musculoskeletal: Musculoskeletal: Reports no additional musculoskeletal complaints Neurologic: Reports system reviewed and no additional complaints, except as documented [facility] Past Medical History Medical History Agoraphobia Agoraphobia with panic attacks NELLY (acute kidney injury) Anxiety disorder, unspecified Bladder spasm BMI 27.0-27.9,adult Bronchitis Cervical disc disease chronic neck and back pain Cholelithiasis Chronic back pain Chronic neck pain Colon cancer Colon polyps Colonoscopy planned DDD (degenerative disc disease) Depression Essential (primary) hypertension Family history of colon cancer HTN (hypertension) Hyperlipidemia IBS (irritable bowel syndrome) Kidney mass Murmur Nephrolithiasis Neuropathy Pleurisy Surgical History Surgical History H/O colonoscopy with polypectomy History of hemicolectomy 01/14/20 Hand assisted laparoscopic right hemicolectomy with ileocolic anastomosis History of hysterectomy partial History of renal stent Family History Family History Mother Carcinoma of colon Hypertension Rheumatoid arthritis Father Family history of diabetes mellitus in first degree relative Carcinoma of colon Hypertension Acute myocardial infarction Rheumatoid arthritis Sibling Family history of malignant neoplasm of brain Rheumatoid arthritis Other Family history of malignant neoplasm of male breast Social History Social History Social History: the patient lives with her Juan who is a durable pow
[2020-06-12 20:04] VITALS: BP 104/57; PULSE 77; RESP 18
[2020-06-12] MEDS: ACETAMINOPHEN 325 MG TABLET 650 MG PO (21:21)
[2020-06-12 21:26] VITALS: BMI 26.2
[2020-06-12 21:30] VITALS: PULSE 77
--- NOTE | 2020-06-12 21:37 | ADMGEN ---
This patient, Eladia Mock, was admitted to Medical Room 342-01. Patient/family oriented to hospital policies and general routines including ID bracelet, bed and alarms, visiting hours, pain management, procedures, bathroom and other care routines, personal items, smoking policy, room service/diet, and visiting hours. Information on how to activate the Rapid Response Team has been discussed. Patient/Family are encouraged to report perceived risks to care and to ask questions if they do not understand what they are told or what they should do.
[2020-06-12] MEDS: SODIUM CHLORIDE 0.9% IV 1,000 ML 125 ML IV CONT (22:35)
[2020-06-13] VITALS (11 sets, daily range): BP systolic 104–127; BP diastolic 43–76; PULSE 64–94; RESP 14–18; TEMP 36.2–36.9; O2SAT 94–100; BMI 26.2
--- NOTE | 2020-06-13 03:05 | PM.IMHP ---
H&P: HPI History of Present Illness Date/Time: 06/13/20 03:05 Chief Complaint: Multiple falls in the last 2 days Narrative: 64-year-old female with past medical history stage IIA colon cancer status post right hemicolectomy with subsequent chronic diarrhea, and peripheral neuropathy who presented to the ER after having multiple near syncopal (approximately 8 or 9) in the last 48 hours. The patient reports that ever since she had her right hemicolectomy in October 2019 she has had brown watery stools about once a day. They are usually large volume stools. This is also accompanied by chronic nausea and decreased oral intake. She reports that her symptoms are slightly worse when she is on her home capecitabine. She takes that medication on 2 weeks and off 2 weeks. She has posterior restart that medication in 3 days. She reports that she tries to change position slowly and sit on the edge of the bed. But even when she does this when she stands up she usually can only walk about fiber 6 steps before she starts to see spots and becomes extremely lightheaded/dizzy and loses her balance. She has not completely lost consciousness. She reports that about 10 days ago she got a the bathroom and had a near syncopal event where she hit the back of her head on the tub. She had an episode on the where she felt like she was going to pass out and grabbed the cabinet door. However, she was unable to catch herself and struck her high on the corner of a cabinet and then struck the back of her head in rebound on the floor. She did not lose consciousness after striking her head. She has not had any vision changes. She reports that she feels extremely weak. She is transition to using a Rollator. Unfortunately, because the bathroom with small she was still using a cane in the bathroom. She has been on Bumex for diastolic dysfunction and history of peripheral edema but has not been having any lower extremity swelling. She is evidently on Bumex at home for this. She has continued to take her Bumex despite her poor oral intake and diarrhea. In the ER orthostatics were performed and she was noted to have positive orthostatic changes and was unable to complete the orthostatic vital signs with standing up due to the severity of her symptoms with going from supine to sitting. She has been taking her potassium supplements at home as directed but does sometimes have difficulty swallowing them due to the size the pills. She is supposed to be taking and anti diarrheal medication at home but reports she has been feeling so bad over the last several days that she has for gotten to take the medication. She has not been having any fevers or chills. She denies any shortness of breath, chest pain, palpitations, orthopnea or paroxysmal nocturnal dyspnea. She has not been having any difficulty with urination. Review of Systems Review of Systems: Narrative: 12 systems were reviewed with pertinent positives and negatives per HPI. Except as documented in the HPI, all other systems were reviewed and are negative. [facility] Past Medical History Medical History (Updated 06/13/20 @ 07:49 by Vee Davis DO) Agoraphobia with panic attacks Bladder spasm Cholelithiasis Chronic back pain Chronic diarrhea Chronic kidney disease, stage III (moderate) Colon cancer (12/2019) Adenocarcinoma stage IIA with right hemicolectomy DDD (degenerative disc disease) Degenerative cervical disc Depression Diastolic dysfunction Noted on echocardiogram from 2017 with preserved ejection fraction Essential (primary) hypertension HTN (hypertension) Hyperlipidemia IBS (irritable bowel syndrome) Iron deficiency anemia Kidney mass Lumbar degenerative disc disease Murmur Benign flow murmur Nephrolithiasis Right side x2 Osteoporosis Peripheral neuropathy PVD (peripheral vascular disease) Surgical History Surgical History (Updated 06/13/20 @ 07:49 by Vee Davis DO) H/O colonoscopy with
[2020-06-13] MEDS: MORPHINE SULFATE (*CRX) 2 MG/ML INJ IV PUSH (04:48)
[2020-06-13 06:12] LABS: Basophils Percent Auto 0.3 % (0.2-1.2); Eosinophils Absolute Auto 0.2 K/mm3 (0-0.3); Eosinophils Percent Auto 2.1 % (0-4.4); Hematocrit 31.4 % (37.0-47.0); Hemoglobin 11.1 g/dL (12.0-15.0); Immature Granulocyte Absolute 0.05 K/mm3 (0.00-0.031); Immature Granulocyte Percent A 0.5 % (0-0.5); Lymphocytes Absolute Auto 2.52 K/mm3 (0.9-3.2); Lymphocytes Percent Auto 27.5 % (18.3-44.2); Mean Corpuscular HGB Conc 35.4 g/dl (32-36); Mean Corpuscular Hemoglobin 32.4 pg (26-34); Mean Corpuscular Volume 91.5 fl (80-100); Mean Platelet Volume 9.1 fl (7.4-10.4); Monocytes Absolute Auto 0.7 K/mm3 (0.1-0.6); Monocytes Percent Auto 8.1 % (2.6-8.5); Neutrophils Absolute Auto 5.7 K/mm3 (1.3-6.7); Neutrophils Percent Auto 61.5 % (45.5-73.1); Platelet Count Result 323 k/mm3 (150-375); Red Blood Count 3.43 M/mm3 (4.2-5.4); Red Cell Distribution Width 20.6 % (11.5-14.5); White Blood Count 9.2 K/mm3 (4.5-10.0)
[2020-06-13 06:34] LABS: Anion Gap 1 mmol/L (8-16); Blood Urea Nitrogen 9 mg/dL (7-17); Calcium 8.6 mg/dL (8.4-10.2); Carbon Dioxide 32 mmol/L (22-30); Chloride 102 mmol/L (98-107); Estimated CRCL calculation 42 ml/min; Estimated Glomerular Filt Rate 45; Glucose 89 mg/dL (65-105); Potassium 3.1 mmol/L (3.4-5.0); Sodium 135 mmol/L (137-145)
[2020-06-13] MEDS: POTASSIUM CHLORIDE 20 MEQ PACKET (FOR LIQUID) 40 MEQ PO ×3 (06:49→17:10)
[2020-06-13 06:57] LABS: Magnesium 1.5 mg/dL (1.6-2.3)
[2020-06-13] MEDS: MAGNESIUM SULFATE 3GM/D5W100ML 3 GM/100 ML BAG IVPB (07:54)
[2020-06-13] MEDS: FERROUS SULFATE 324 MG TABLET PO ×3 (07:58→17:10)
[2020-06-13] MEDS: THERAPEUTIC MULTIVITAMINS/MINERALS TAB (*BKC) 1 TABLET PO (07:59)
[2020-06-13] MEDS: CHOLECALCIFEROL 1,000 UNITS TABLET 2000 UNITS PO (07:59)
[2020-06-13] MEDS: GABAPENTIN 300 MG CAPSULE PO (07:59)
--- NOTE | 2020-06-13 10:44 | PM.IMPN ---
Progress Note: A&P Assessment and Plan (1) Orthostatic hypotension: Code(s): I95.1 - Orthostatic hypotension Status: Acute Assessment and Plan: Receiving fluids Encourage oral intake (2) Hypokalemia: Code(s): E87.6 - Hypokalemia Status: Acute Assessment and Plan: Replace as needed Continue to monitor (3) Hypomagnesemia: Code(s): E83.42 - Hypomagnesemia Status: Acute Assessment and Plan: Replace as needed Continue to monitor (4) Near syncope: Code(s): R55 - Syncope and collapse Status: Acute Assessment and Plan: Likely secondary to hypovolemia Patient is being hydrated through IV fluid Will push oral (5) Chronic diarrhea: Code(s): K52.9 - Noninfective gastroenteritis and colitis, unspecified Status: Acute Assessment and Plan: Likely secondary to chemotherapy prior history of irritable bowel syndrome (6) Frequent falls: Code(s): R29.6 - Repeated falls Status: Acute Assessment and Plan: Secondary to hypovolemia For precautions (7) Acute hypokalemia: Code(s): E87.6 - Hypokalemia Status: Acute Assessment and Plan: Replace as needed Additional Plan Patient has orthostatic hypotension resulting in near syncopal events and multiple falls. Patient feels better after IV fluid hydration. The patient's blood pressures have been borderline low. Will hold the patient's home Norvasc and decrease the patient's Coreg dose to 12.5 mg p.o. b.i.d.. The patient's Bumex has been held as she appeared clinically volume depleted with relative hemoconcentration. Will place the patient on fall precautions and order thigh-high Joey hose. She does wear support stockings at home. If patient continues to have orthostatic events we may need to consider adding midodrine to her regimen. Will have nursing staff check orthostatic vital signs Q shift. The patient did have hypokalemia which has improved but not quite resolved. Will give the patient 40 mEq of potassium chloride powder. Will change the patient's home potassium to 40 mEq b.i.d.. Patient has accompanying hypo magnesemia will give a 3 g magnesium sulfate rider. Will avoid oral potassium supplements as this could make the patient's chronic diarrhea worse. Will resume the patient's home anti diarrheal medication. The patient has been placed on fall precautions. Will have PT and OT evaluate the patient's mobility. The patient is curious as if she may need a different type of walker. I am concerned that if the patient is using a Rollator walker that when she becomes near syncopal and leaves on the walkers the walker very well may roll away and the patient may still have a fall. Consult dietitian as patient has expressed how to she does not have a taste for foods and poor appetite. Subjective Date/time seen: 06/13/20 10:44 I have no appetite I do not feel good Review of Systems Review of Systems: All systems reviewed & are unremarkable except as noted in HPI and below Constitutional: Constitutional: Denies chills, Reports fatigue, Reports lethargy, Denies night sweats and Reports poor appetite Eyes: Eyes: Reports no additional eye complaints ENT: Reports system reviewed and no additional complaints, except as documented Cardiovascular: Cardiovascular: Reports no additional cardiovascular complaints Respiratory: Respiratory: Reports no additional respiratory complaints Gastrointestinal: Gastrointestinal: Reports as per HPI Musculoskeletal: Musculoskeletal: Reports no additional musculoskeletal complaints Neurologic: Reports system reviewed and no additional complaints, except as documented Exam Narrative: Exam Narrative: PHYSICAL EXAM: WEIGHT 75.8 kg BMI 26.2 General: Chronically ill-appearing, well-developed well-nourished HEENT: Mucous membranes are moist, no oral pharyngeal erythema, no scleral icterus, positive conjunctival pallor, pu
[2020-06-13] MEDS: DIPHENOXYLATE/ATROPINE (*CRX) 2.5 MG TABLET 2 TABLET PO ×3 (10:46→20:24)
[2020-06-13] MEDS: HYDROcodone/acetaminophen (*CRX) 5-325 MG TABLET 1 TAB PO ×2 (10:46→17:12)
[2020-06-13] MEDS: SODIUM CHLORIDE 0.9% IV 1,000 ML 125 ML IV CONT (10:50)
--- NOTE | 2020-06-13 11:12 | PCPTNOTE ---
Attempted PT eval. Pt refused due tr diarrhea and being tired. Will try again later today.
--- NOTE | 2020-06-13 11:16 | PCOTNOTE ---
Attempted OT eval. Pt refused due to not feeling well, diarrhea, and being tired. Will try again at later time.
[2020-06-13 12:04] LABS: Basophils Percent Auto 0.2 % (0.2-1.2); Eosinophils Absolute Auto 0.2 K/mm3 (0-0.3); Eosinophils Percent Auto 2.1 % (0-4.4); Hematocrit 34.3 % (37.0-47.0); Immature Granulocyte Absolute 0.06 K/mm3 (0.00-0.031); Immature Granulocyte Percent A 0.6 % (0-0.5); Lymphocytes Absolute Auto 2.04 K/mm3 (0.9-3.2); Lymphocytes Percent Auto 21.7 % (18.3-44.2); Mean Corpuscular Hemoglobin 32.8 pg (26-34); Mean Corpuscular Volume 93.7 fl (80-100); Mean Platelet Volume 9.5 fl (7.4-10.4); Monocytes Absolute Auto 0.8 K/mm3 (0.1-0.6); Monocytes Percent Auto 8.7 % (2.6-8.5); Neutrophils Absolute Auto 6.2 K/mm3 (1.3-6.7); Neutrophils Percent Auto 66.7 % (45.5-73.1); Platelet Count Result 364 k/mm3 (150-375); Red Blood Count 3.66 M/mm3 (4.2-5.4); Red Cell Distribution Width 21.2 % (11.5-14.5); White Blood Count 9.4 K/mm3 (4.5-10.0)
[2020-06-13 12:15] LABS: Anion Gap 5 mmol/L (8-16); Blood Urea Nitrogen 8 mg/dL (7-17); Calcium 8.6 mg/dL (8.4-10.2); Carbon Dioxide 28 mmol/L (22-30); Chloride 103 mmol/L (98-107); Estimated CRCL calculation 42 ml/min; Estimated Glomerular Filt Rate 45; Glucose 117 mg/dL (65-105); Potassium 3.2 mmol/L (3.4-5.0); Sodium 136 mmol/L (137-145)
--- NOTE | 2020-06-13 12:38 | PDONCCN ---
HPI - Date of Consult Date/Time: 06/13/20 12:38 Requesting Physician: Quoc Lee MD Primary Care Provider: Deny Canseco MD - Consult Narrative Reason for consult: Stage II colon cancer. Narrative: Eladia Mock is a 64 year old female with recently diagnosed stage II colon cancer status post right-sided hemicolectomy done in October of 2019. Patient has been taking adjuvant chemotherapy with Xeloda since February of 2020 due to high-risk stage II colon cancer. She developed lightheadedness and dizziness and has been falling for last week duration. She has fallen about 4 times in last 1 week. She has been having constant diarrhea which has gotten worse without any melena hematochezia. She is complaining of some abdominal pain and heartburn. Her labs showed normal hemoglobin with elevated WBC and platelet count. CT head showed no evidence of metastatic disease. She was found to have orthostatic hypotension likely secondary to her significant diarrhea. She denies any neuropathy. Review of Systems - Review of Systems All systems reviewed & are unremarkable except as noted in HPI and bel - Neurologic Reports system reviewed and no additional complaints, except as documented PMF Medical History: Medical History (Last Updated 06/13/20 @ 07:49 by Vee Davis DO) Agoraphobia with panic attacks Bladder spasm Cholelithiasis Chronic back pain Chronic diarrhea Chronic kidney disease, stage III (moderate) Colon cancer Onset Date: 12/2019 Adenocarcinoma stage IIA with right hemicolectomy DDD (degenerative disc disease) Degenerative cervical disc Depression Diastolic dysfunction Noted on echocardiogram from 2017 with preserved ejection fraction Essential (primary) hypertension HTN (hypertension) Hyperlipidemia IBS (irritable bowel syndrome) Iron deficiency anemia Kidney mass Lumbar degenerative disc disease Murmur Benign flow murmur Nephrolithiasis Right side x2 Osteoporosis Peripheral neuropathy PVD (peripheral vascular disease) Surgical History: Surgical History (Last Updated 06/13/20 @ 07:49 by Vee Davis DO) H/O colonoscopy with polypectomy H/O lithotripsy History of hemicolectomy Onset Date: ~01/14/20 Hand assisted laparoscopic right hemicolectomy with ileocolic anastomosis History of hysterectomy Onset Date: ~1985 Without oophorectomy History of renal stent 04/2019, 10/2019 Family History: Family History (Last Reviewed 06/13/20 @ 07:49 by Vee Davis DO) Mother Carcinoma of colon Hypertension Rheumatoid arthritis Father Family history of diabetes mellitus in first degree relative Carcinoma of colon Hypertension Acute myocardial infarction Rheumatoid arthritis Sibling Family history of malignant neoplasm of brain Rheumatoid arthritis Other Family history of malignant neoplasm of male breast - Social History Social History: Social History (Last Updated 06/13/20 @ 07:52 by Vee Daivs DO) Gender Identity: Gender identity (if verbalized by the patient): Female Alcohol Use: Alcohol intake: never Substance Use: Substance use: never Substance use type: does not use Others: Spiritual care concerns: No Agree to blood products: Yes Smoking Status: Smoking status: Former smoker Tobacco type: cigarettes Second hand tobacco smoke exposure: Yes Approximate Smoking End Date: 1987 Smoking Pack-years: Smoking packs per day: 0.5 Smoking cigarettes per day: 10.0 Years smoked: 10 Smoking pack-years: 5.00 Meds Home Medications Medication Instructions Recorded Confirmed Type cholecalciferol (vitamin D3) 50 mcg PO DAILY 09/12/19 06/12/20 History bumetanide 1 mg tablet 1 mg PO Q12H 11/18/19 06/12/20 History Centrum Silver Women 1 tablet PO DAILY 01/04/20 06/12/20 History ferrous sulfate 325 mg (65 mg 325 mg PO TID #90 tablet 01
[2020-06-13] MEDS: CYCLOBENZAPRINE HCL 10 MG TABLET PO ×2 (14:29→17:10)
[2020-06-13] MEDS: carvediloL 12.5 MG TABLET PO (20:25)
[2020-06-13] MEDS: PANTOPRAZOLE 40 MG TABLET PO (20:25)
[2020-06-13] MEDS: GABAPENTIN 300 MG CAPSULE 600 MG PO (20:25)
[2020-06-14] VITALS (16 sets, daily range): BP systolic 107–130; BP diastolic 51–76; PULSE 71–97; RESP 16–18; TEMP 36.1–36.8; O2SAT 94–98
[2020-06-14] MEDS: SODIUM CHLORIDE 0.9% IV 1,000 ML 125 ML IV CONT ×3 (01:48→23:50)
[2020-06-14 06:20] LABS: Basophils Percent Auto 0.4 % (0.2-1.2); Eosinophils Absolute Auto 0.3 K/mm3 (0-0.3); Eosinophils Percent Auto 4.2 % (0-4.4); Hematocrit 30.6 % (37.0-47.0); Hemoglobin 10.6 g/dL (12.0-15.0); Immature Granulocyte Absolute 0.05 K/mm3 (0.00-0.031); Immature Granulocyte Percent A 0.6 % (0-0.5); Lymphocytes Absolute Auto 2.52 K/mm3 (0.9-3.2); Lymphocytes Percent Auto 31.1 % (18.3-44.2); Mean Corpuscular HGB Conc 34.6 g/dl (32-36); Mean Corpuscular Hemoglobin 32.6 pg (26-34); Mean Corpuscular Volume 94.2 fl (80-100); Mean Platelet Volume 9.1 fl (7.4-10.4); Monocytes Absolute Auto 0.9 K/mm3 (0.1-0.6); Monocytes Percent Auto 10.6 % (2.6-8.5); Neutrophils Absolute Auto 4.3 K/mm3 (1.3-6.7); Neutrophils Percent Auto 53.1 % (45.5-73.1); Platelet Count Result 315 k/mm3 (150-375); Red Blood Count 3.25 M/mm3 (4.2-5.4); Red Cell Distribution Width 21.4 % (11.5-14.5); White Blood Count 8.1 K/mm3 (4.5-10.0)
[2020-06-14 06:32] LABS: Anion Gap 1 mmol/L (8-16); Blood Urea Nitrogen 6 mg/dL (7-17); Calcium 8.1 mg/dL (8.4-10.2); Carbon Dioxide 26 mmol/L (22-30); Chloride 107 mmol/L (98-107); Estimated CRCL calculation 45 ml/min; Estimated Glomerular Filt Rate 50; Glucose 86 mg/dL (65-105); Potassium 3.6 mmol/L (3.4-5.0); Sodium 134 mmol/L (137-145)
[2020-06-14] MEDS: PANTOPRAZOLE 40 MG TABLET PO ×2 (08:46→20:09)
[2020-06-14] MEDS: CYCLOBENZAPRINE HCL 10 MG TABLET PO ×3 (08:46→17:21)
[2020-06-14] MEDS: GABAPENTIN 300 MG CAPSULE PO (08:47)
[2020-06-14] MEDS: DIPHENOXYLATE/ATROPINE (*CRX) 2.5 MG TABLET 2 TABLET PO ×4 (08:47→20:18)
[2020-06-14] MEDS: CHOLECALCIFEROL 1,000 UNITS TABLET 2000 UNITS PO (08:47)
[2020-06-14] MEDS: FERROUS SULFATE 324 MG TABLET PO ×3 (08:47→17:21)
[2020-06-14] MEDS: THERAPEUTIC MULTIVITAMINS/MINERALS TAB (*BKC) 1 TABLET PO (08:47)
[2020-06-14] MEDS: carvediloL 12.5 MG TABLET PO ×2 (08:50→20:10)
[2020-06-14] MEDS: HYDROcodone/acetaminophen (*CRX) 5-325 MG TABLET 1 TAB PO ×3 (11:38→23:58)
--- NOTE | 2020-06-14 13:26 | PM.IMPN ---
Progress Note: A&P Assessment and Plan (1) Orthostatic hypotension: Code(s): I95.1 - Orthostatic hypotension Status: Acute Assessment and Plan: Receiving fluids Encourage oral intake Continue to monitor orthostatics (2) Hypokalemia: Code(s): E87.6 - Hypokalemia Status: Acute Assessment and Plan: Replace as needed Continue to monitor (3) Hypomagnesemia: Code(s): E83.42 - Hypomagnesemia Status: Acute Assessment and Plan: Replace as needed Continue to monitor (4) Near syncope: Code(s): R55 - Syncope and collapse Status: Acute Assessment and Plan: Likely secondary to hypovolemia Patient is being hydrated through IV fluid Will push oral (5) Frequent falls: Code(s): R29.6 - Repeated falls Status: Acute Assessment and Plan: Secondary to hypovolemia For precautions (6) Acute hypokalemia: Code(s): E87.6 - Hypokalemia Status: Acute Assessment and Plan: Replace as needed (7) Diarrhea: Code(s): R19.7 - Diarrhea, unspecified Status: Acute Assessment and Plan: Try to control with Imodium could be cancer related symptom or post chemotheraphy related. Subjective Date/time seen: 06/14/20 13:26 Interval history: Patient has orthostatic hypotension resulting in near syncopal events and multiple falls. Pt has recently stopped her chemotherapy and has been having heavy diarrhea and dizziness since. Pt has a recent diagnosis of Stage II colon cancer. Review of Systems Review of Systems: All systems reviewed & are unremarkable except as noted in HPI and below Exam Narrative: Exam Narrative: General: Chronically ill-appearing HEENT: Mucous membranes are moist Respiratory: Clear to auscultation bilaterally Cardiovascular: Regular rate, regular rhythm Gastrointestinal: Soft, nontender, slightly distended, normoactive bowel sounds Skin: Generalized pallor, non jaundice, cool to touch Musculoskeletal: No clubbing, cyanosis or pitting edema Neurological: Alert and oriented, speech is clear, good historian, no localizing neurologic deficits Psychiatric: Appropriate mood and affect, pleasant and cooperative : Deferred Hematologic/lymphatic: No petechiae, right periorbital bruising, no lymphadenopathy Objective Data Vital Signs Vital Signs: Vital Signs - 24 hr 06/13/20 16:00 06/13/20 20:00 06/13/20 20:19 Temperature 36.8 C 36.6 C Pulse Rate 76 93 90 Respiratory Rate 18 18 Blood Pressure 104/64 127/62 Pulse Oximetry 98 97 06/13/20 20:21 06/13/20 20:25 06/14/20 00:00 Temperature 36.2 C L Pulse Rate 90 76 Respiratory Rate 18 Blood Pressure 113/74 108/43 L 111/51 L Pulse Oximetry 95 06/14/20 04:00 06/14/20 06:06 06/14/20 08:00 Temperature 36.8 C Pulse Rate 78 75 87 Respiratory Rate 17 Blood Pressure 113/60 119/62 Pulse Oximetry 95 06/14/20 08:01 06/14/20 08:02 06/14/20 08:50 Temperature Pulse Rate 92 97 82 Respiratory Rate Blood Pressure 116/72 107/68 Pulse Oximetry Intake/Output Intake/Output: Intake & Output 06/11/20 06/12/20 06/13/20 06/14/20 23:59 23:59 23:59 23:59 Intake Total 200 2240 2970 Output Total 100 400 300 Balance 100 1840 2670 Meds/Results Medications: Active Medications Generic Name Dose Route Start Last Admin Trade Name Freq PRN Reason Stop Dose Admin Acetaminophen 650 mg 06/12/20 19:53 06/12/20 21:21 Acetaminophen 325 Mg Tablet PO 650 mg Q4H PRN Administration Mild Pain (1-3) or Fever Hydrocodone Bitart/Acetaminophen 1 tab 06/13/20 07:14 06/14/20 11:38 Hydrocodone/Acetaminophen (*Crx) 5-325 Mg Tablet PO 1 tab Q6-8H PRN Administration Pain (Scale Score 7-10) Albuterol 2 puff 06/13/20 08:00 Albuterol Sulfate (*Sp) Aerosol 1 Puff INHALATION Q4HRT PRN shortness of breath or wheezin Alprazolam 0.5 mg 06/13/20 07:12 Alprazolam (*Crx)
[2020-06-14] MEDS: POTASSIUM CHLORIDE 20 MEQ TABLET.ER 40 MEQ PO (17:21)
[2020-06-14] MEDS: SACCHAROMYCES BOULARDII 250 MG CAPSULE PO (20:09)
[2020-06-14] MEDS: GABAPENTIN 300 MG CAPSULE 600 MG PO (20:09)
[2020-06-15] VITALS (16 sets, daily range): BP systolic 101–135; BP diastolic 52–82; PULSE 72–95; RESP 16–18; TEMP 35.8–36.1; O2SAT 96–100
[2020-06-15] MEDS: LOPERAMIDE HCL 2 MG CAPSULE PO (04:56)
[2020-06-15 05:51] LABS: Basophils Percent Auto 0.3 % (0.2-1.2); Eosinophils Absolute Auto 0.3 K/mm3 (0-0.3); Eosinophils Percent Auto 4.8 % (0-4.4); Hematocrit 31.3 % (37.0-47.0); Hemoglobin 10.7 g/dL (12.0-15.0); Immature Granulocyte Absolute 0.02 K/mm3 (0.00-0.031); Immature Granulocyte Percent A 0.3 % (0-0.5); Lymphocytes Absolute Auto 2.13 K/mm3 (0.9-3.2); Lymphocytes Percent Auto 33.2 % (18.3-44.2); Mean Corpuscular HGB Conc 34.2 g/dl (32-36); Mean Corpuscular Hemoglobin 32.7 pg (26-34); Mean Corpuscular Volume 95.7 fl (80-100); Mean Platelet Volume 9.1 fl (7.4-10.4); Monocytes Percent Auto 15.9 % (2.6-8.5); Neutrophils Absolute Auto 2.9 K/mm3 (1.3-6.7); Neutrophils Percent Auto 45.5 % (45.5-73.1); Platelet Count Result 306 k/mm3 (150-375); Red Blood Count 3.27 M/mm3 (4.2-5.4); Red Cell Distribution Width 21.2 % (11.5-14.5); White Blood Count 6.4 K/mm3 (4.5-10.0)
[2020-06-15 05:57] LABS: Anion Gap 2 mmol/L (8-16); Blood Urea Nitrogen 7 mg/dL (7-17); Calcium 8.4 mg/dL (8.4-10.2); Carbon Dioxide 22 mmol/L (22-30); Chloride 109 mmol/L (98-107); Estimated CRCL calculation 49 ml/min; Estimated Glomerular Filt Rate 56; Glucose 91 mg/dL (65-105); Potassium 3.4 mmol/L (3.4-5.0); Sodium 133 mmol/L (137-145)
[2020-06-15] MEDS: SODIUM CHLORIDE 0.9% IV 1,000 ML 125 ML IV CONT (08:44)
[2020-06-15] MEDS: GABAPENTIN 300 MG CAPSULE PO (08:48)
[2020-06-15] MEDS: PANTOPRAZOLE 40 MG TABLET PO ×2 (08:48→20:13)
[2020-06-15] MEDS: CYCLOBENZAPRINE HCL 10 MG TABLET PO ×3 (08:48→17:00)
[2020-06-15] MEDS: POTASSIUM CHLORIDE 20 MEQ TABLET.ER 40 MEQ PO ×2 (08:48→17:00)
[2020-06-15] MEDS: DIPHENOXYLATE/ATROPINE (*CRX) 2.5 MG TABLET 2 TABLET PO ×4 (08:48→20:13)
[2020-06-15] MEDS: carvediloL 12.5 MG TABLET PO ×2 (08:48→20:13)
[2020-06-15] MEDS: FERROUS SULFATE 324 MG TABLET PO ×3 (08:48→17:00)
[2020-06-15] MEDS: CHOLECALCIFEROL 1,000 UNITS TABLET 2000 UNITS PO (08:48)
[2020-06-15] MEDS: THERAPEUTIC MULTIVITAMINS/MINERALS TAB (*BKC) 1 TABLET PO (08:48)
[2020-06-15] MEDS: SACCHAROMYCES BOULARDII 250 MG CAPSULE PO ×2 (08:48→20:13)
--- NOTE | 2020-06-15 12:08 | PM.IMPN ---
Progress Note: A&P Assessment and Plan (1) Orthostatic hypotension: Code(s): I95.1 - Orthostatic hypotension Status: Resolved Assessment and Plan: Pt is not tilting anymore stop iv fluids (2) Hypokalemia: Code(s): E87.6 - Hypokalemia Status: Acute Assessment and Plan: Replace as needed Continue to monitor (3) Hypomagnesemia: Code(s): E83.42 - Hypomagnesemia Status: Acute Assessment and Plan: Replace as needed Continue to monitor (4) Near syncope: Code(s): R55 - Syncope and collapse Status: Acute Assessment and Plan: Likely secondary to hypovolemia Patient is being hydrated through IV fluid Will push oral (5) Frequent falls: Code(s): R29.6 - Repeated falls Status: Acute Assessment and Plan: Secondary to hypovolemia For precautions (6) Acute hypokalemia: Code(s): E87.6 - Hypokalemia Status: Acute Assessment and Plan: Replace as needed (7) Diarrhea: Code(s): R19.7 - Diarrhea, unspecified Status: Acute Assessment and Plan: Try to control with Imodium could be cancer related symptom or post chemotheraphy related. Consult GI Additional Plan Interval history : Patient has orthostatic hypotension resulting in near syncopal events and multiple falls. Patient feels better after IV fluid hydration. The patient's blood pressures have been borderline low. Will hold the patient's home Norvasc and decrease the patient's Coreg dose to 12.5 mg p.o. b.i.d.. The patient's Bumex has been held as she appeared clinically volume depleted with relative hemoconcentration. Will place the patient on fall precautions and order thigh-high Joey hose. She does wear support stockings at home. If patient continues to have orthostatic events we may need to consider adding midodrine to her regimen. Will have nursing staff check orthostatic vital signs Q shift. The patient did have hypokalemia which has improved but not quite resolved. Will give the patient 40 mEq of potassium chloride powder. Will change the patient's home potassium to 40 mEq b.i.d.. Patient has accompanying hypo magnesemia will give a 3 g magnesium sulfate rider. Will avoid oral potassium supplements as this could make the patient's chronic diarrhea worse. Will resume the patient's home anti diarrheal medication. The patient has been placed on fall precautions. Will have PT and OT evaluate the patient's mobility. Subjective Date/time seen: 06/15/20 12:08 Interval history: Patient has orthostatic hypotension resulting in near syncopal events and multiple falls. Pt has recently stopped her chemotherapy and has been having heavy diarrhea and dizziness since. Pt has a recent diagnosis of Stage II colon cancer. Pt states her diarrhea is better going three times a day as compared with 30 times. Pt states it occurs when she takes to eat something. I will consult GI ? IBS or Dumping syndrome. Review of Systems Review of Systems: All systems reviewed & are unremarkable except as noted in HPI and below Exam Narrative: Exam Narrative: General: Chronically ill-appearing HEENT: Mucous membranes are moist Respiratory: Clear to auscultation bilaterally Cardiovascular: Regular rate, regular rhythm Gastrointestinal: Soft, nontender, slightly distended, normoactive bowel sounds Skin: Generalized pallor, non jaundice, cool to touch Musculoskeletal: No clubbing, cyanosis or pitting edema Neurological: Alert and oriented, speech is clear, good historian, no localizing neurologic deficits Psychiatric: Appropriate mood and affect, pleasant and cooperative : Deferred Hematologic/lymphatic: No petechiae, right periorbital bruising, no lymphadenopathy Objective Data Vital Signs Vital Signs: Vital Signs - 24 hr 06/14/20 14:00 06/14/20 15:48 06/14/20 16:00 Temperature 36.1 C L Pulse Rate 77 91 Respiratory Rate 16 Blood Pressure 107/
[2020-06-15] MEDS: HYDROcodone/acetaminophen (*CRX) 5-325 MG TABLET 1 TAB PO (12:25)
--- NOTE | 2020-06-15 13:01 | P.PNONC_ITS ---
Progress Note: A/P - Additional Plan Stage II colon cancer status post right-sided hemicolectomy in October of 2019. Adjuvant chemotherapy with Xeloda was started due to high-risk features. We will discontinue adjuvant chemotherapy due to poor tolerance. Patient will follow-up with me in the office for periodic CT scan and blood test. Chemotherapy-induced diarrhea. Patient is feeling better with less frequent diarrhea. She will continue Lomotil as an outpatient. She should be able to go home today and will follow-up in the office. Abdominal pain and heartburn. Patient is on Nexium. GI service is going to see patient. - Time Spent With Patient Total time spent is greater than 50% in coordination of care (as documented) at patient's floor/unit and/or counseling patient: 15 - 25 minutes Subjective Interval history: Colon cancer Intractable diarrhea Review of Systems - Review of Systems Patient is feeling better with only 2 episode of diarrhea so far. She is eating better. Denies any nausea vomiting. Denies any abdominal pain. No bleeding. - Neurologic Reports system reviewed and no additional complaints, except as documented Exam Vital signs: Temp Pulse Resp BP Pulse Ox 36.1 C L 91 18 105/66 96 06/15/20 04:40 06/15/20 12:00 06/15/20 04:40 06/15/20 04:40 06/15/20 04:40 Lungs are clear to auscultation bilaterally Cardiovascular regular rate rhythm no murmurs Abdomen soft nontender nondistended bowel sounds are positive Extremities no edema PN: Objective Data - Labs CBC & Chem 7: 06/15/20 05:28 06/15/20 05:27 Labs: Laboratory Results - last 24 hr 06/15/20 06/15/20 05:27 05:28 WBC 6.4 RBC 3.27 L Hgb 10.7 L Hct 31.3 L MCV 95.7 MCH 32.7 MCHC 34.2 RDW 21.2 H Plt Count 306 MPV 9.1 Immature Gran % (Auto) 0.3 Neut % (Auto) 45.5 Lymph % (Auto) 33.2 [place] % (Auto) 15.9 H Eos % (Auto) 4.8 H Baso % (Auto) 0.3 Lymph # (Auto) 2.13 [place] # (Auto) 1.0 H Eos # (Auto) 0.3 Baso # (Auto) 0.0 Abs Immat Gran (auto) 0.02 Absolute Neuts (auto) 2.9 Absolute Nucleated RBC 0.0 Nucleated RBC % 0.0 Sodium 133 L Potassium 3.4 Chloride 109 H Carbon Dioxide 22 Anion Gap 2 L BUN 7 Creatinine 1.00 Estim Creat Clear Calc 49 Estimated GFR 56 L Glucose 91 Calcium 8.4
--- NOTE | 2020-06-15 15:24 | WPDGICN ---
Assessment and Plan Assessment and plan (1) Diarrhea: Qualifiers: Diarrhea type: unspecified type Qualified Code(s): R19.7 - Diarrhea, unspecified Code(s): R19.7 - Diarrhea, unspecified Status: Acute Assessment and Plan: she is already on maximal doses Lomotil and taking now Imodium as well. Because surgery resected her ileocecal valve, I am sure that she has some element of bile salt diarrhea. I am going to start her on cholestyramine at bedtime. She is hopeful as IN that her diarrhea will subside now the chemotherapy is discontinued, although I have no idea how much of that we can blame on her chemotherapy (2) Colon cancer: Onset Date: 12/2019 Qualifiers: Colon location: unspecified part of colon Qualified Code(s): C18.9 - Malignant neoplasm of colon, unspecified Code(s): C18.9 - Malignant neoplasm of colon, unspecified Status: Acute Assessment and Plan: she states that she is in complete remission now and is happy with the results of her surgery and chemo. As I mentioned above Dr. Kumar is going to discontinue her chemotherapy Additional Plan if her electrolytes remain normal, I think that she could be discharged tomorrow GI Consult Note Consult date/time: 06/15/20 15:24 HPI: Eladia Mock is a 64 year old female Was admitted with severe diarrhea and electrolyte disorders. Her potassium was as low as 2.9. She states that since she had her right colon resection for cancer in December that she has had issues with diarrhea. She was taking Lomotil at home and recently up to 8 tablets per day. Since she started chemotherapy she knows that the diarrhea has gotten worse. Last week she was having up to 20 watery stools per day she feels burning in her abdomen as though her insides are raw. She has not had blood in her stools. She was told that the diarrhea is probably due at least in part to her chemotherapy. She was supposed to continue that through July but is going to stop it now. She has found that she has an urgent bowel movement immediately after eating as well as multiple other times each day. It has gotten a little better since hospitalization. She also is getting Imodium now. I explained her that she may need cholestyramine. When I described it she said that she is fairly sure that it was tried but it was intolerable. Looking at her meds it seems that she may have been thinking of potassium as I do not see that cholestyramine has been ordered yet during this hospitalization. Review of Systems Review of Systems: All systems reviewed & are unremarkable except as noted in HPI and below PMFSH Past Medical History Medical History Agoraphobia with panic attacks Bladder spasm Cholelithiasis Chronic back pain Chronic diarrhea Chronic kidney disease, stage III (moderate) Colon cancer (12/2019) Adenocarcinoma stage IIA with right hemicolectomy DDD (degenerative disc disease) Degenerative cervical disc Depression Diastolic dysfunction Noted on echocardiogram from 2017 with preserved ejection fraction Essential (primary) hypertension HTN (hypertension) Hyperlipidemia IBS (irritable bowel syndrome) Iron deficiency anemia Kidney mass Lumbar degenerative disc disease Murmur Benign flow murmur Nephrolithiasis Right side x2 Osteoporosis Peripheral neuropathy PVD (peripheral vascular disease) Surgical History Surgical History H/O colonoscopy with polypectomy H/O lithotripsy History of hemicolectomy (~01/14/20) Hand assisted laparoscopic right hemicolectomy with ileocolic anastomosis History of hysterectomy (~1985) Without oophorectomy History of renal stent 04/2019, 10/2019 Family History Family History Mother Carcinoma of colon Hypertension Rheumatoid arthritis [place]
[2020-06-15] MEDS: GABAPENTIN 300 MG CAPSULE 600 MG PO (20:13)
[2020-06-15] MEDS: CHOLESTYRAMINE (W/ SUGAR) 4 GM POWD.PACK PO (20:14)
[2020-06-16] VITALS: BP 97/59; PULSE 73; PULSE 77; RESP 16; TEMP 36; O2SAT 96
[2020-06-16 04:00] VITALS: BP 124/57; PULSE 73; RESP 16; TEMP 35.9; O2SAT 97
[2020-06-16 07:56] LABS: Anion Gap 2 mmol/L (8-16); Blood Urea Nitrogen 5 mg/dL (7-17); Calcium 8.5 mg/dL (8.4-10.2); Carbon Dioxide 22 mmol/L (22-30); Chloride 110 mmol/L (98-107); Estimated CRCL calculation 55 ml/min; Estimated Glomerular Filt Rate > 60; Glucose 86 mg/dL (65-105); Potassium 4.1 mmol/L (3.4-5.0); Sodium 134 mmol/L (137-145)
[2020-06-16 08:00] VITALS: PULSE 79
[2020-06-16] MEDS: FERROUS SULFATE 324 MG TABLET PO (08:56)
[2020-06-16 08:57] VITALS: PULSE 95
[2020-06-16] MEDS: CHOLECALCIFEROL 1,000 UNITS TABLET 2000 UNITS PO (08:57)
[2020-06-16] MEDS: POTASSIUM CHLORIDE 20 MEQ TABLET.ER 40 MEQ PO (08:57)
[2020-06-16] MEDS: GABAPENTIN 300 MG CAPSULE PO (08:57)
[2020-06-16] MEDS: carvediloL 12.5 MG TABLET PO (08:57)
[2020-06-16] MEDS: CYCLOBENZAPRINE HCL 10 MG TABLET PO (08:57)
[2020-06-16] MEDS: SACCHAROMYCES BOULARDII 250 MG CAPSULE PO (08:58)
[2020-06-16] MEDS: PANTOPRAZOLE 40 MG TABLET PO (08:58)
[2020-06-16] MEDS: DIPHENOXYLATE/ATROPINE (*CRX) 2.5 MG TABLET 2 TABLET PO (08:59)
[2020-06-16] MEDS: THERAPEUTIC MULTIVITAMINS/MINERALS TAB (*BKC) 1 TABLET PO (09:00)
[2020-06-16 10:00] VITALS: BP 102/77; BP 121/67; BP 132/68; PULSE 86; PULSE 88; PULSE 91; RESP 18; TEMP 36.3; O2SAT 98
--- NOTE | 2020-06-16 10:56 | WPDGIPROGNO ---
Progress Note: A&P Assessment and Plan (1) Chronic diarrhea: Code(s): K52.9 - Noninfective gastroenteritis and colitis, unspecified Status: Acute Assessment and Plan: it seems that cholestyramine is helpful. Because of the right colectomy it should help with bile salt diarrhea. She understands she may still need to take Imodium or Lomotil. (2) Colon cancer: Onset Date: 12/2019 Qualifiers: Colon location: unspecified part of colon Qualified Code(s): C18.9 - Malignant neoplasm of colon, unspecified Code(s): C18.9 - Malignant neoplasm of colon, unspecified Status: Acute Assessment and Plan: Although she had 1 more month of chemotherapy, it appears that this is going to be held because of the side effects. She will be due for a follow-up colonoscopy in December. Subjective Date/time seen: 06/16/20 10:56 last night she received her 1st dose of cholestyramine. She cheerfully told me that she finally had a solid stool today. She is planning to go home today. I explained her that cholestyramine should be taken at bedtime at least 1 hour after taking all of her other evening meds. I told her that it is possible she might need a 2nd dose or at least a half dose earlier in the day if her diarrhea returns. At the very least this should allow her to get by with fewer Lomotil or Imodium tablets Review of Systems Cardiovascular: Cardiovascular: Reports no additional cardiovascular complaints Respiratory: Respiratory: Reports no additional respiratory complaints Gastrointestinal: Gastrointestinal: Reports no additional gastrointestinal complaints and Denies diarrhea Exam GI: Inspection: normal to inspection GI Palp: Yes Soft to palpation and No Tenderness to palpation present (GI) Auscultation: normal bowel sounds Objective Data Vital Signs Vital Signs: Vital Signs - 24 hr 06/15/20 12:00 06/15/20 12:55 06/15/20 12:56 Temperature 35.8 C L Pulse Rate 80 80 86 Respiratory Rate 16 Blood Pressure 116/52 L 116/52 L 122/70 Pulse Oximetry 99 06/15/20 12:57 06/15/20 14:55 06/15/20 16:00 Temperature 35.9 C L Pulse Rate 90 75 78 Respiratory Rate 16 Blood Pressure 115/66 101/82 Pulse Oximetry 98 06/15/20 19:42 06/15/20 19:43 06/15/20 19:45 Temperature 35.9 C L Pulse Rate 77 79 95 Respiratory Rate 18 Blood Pressure 125/58 L 135/78 107/59 L Pulse Oximetry 100 06/15/20 20:00 06/15/20 20:13 06/16/20 00:00 Temperature 36.0 C L Pulse Rate 72 72 73 Respiratory Rate 18 16 Blood Pressure 97/59 L Pulse Oximetry 100 96 06/16/20 04:00 06/16/20 08:00 06/16/20 08:57 Temperature 35.9 C L Pulse Rate 73 79 95 Respiratory Rate 16 Blood Pressure 124/57 L Pulse Oximetry 97 06/16/20 10:00 Temperature 36.3 C L Pulse Rate 91 Respiratory Rate 18 Blood Pressure 102/77 Pulse Oximetry 98 Intake/Output Intake/Output: Intake & Output 06/13/20 06/14/20 06/15/20 06/16/20 23:59 23:59 23:59 23:59 Intake Total 2240 4470 2270 340 Output Total 400 325 200 100 Balance 1840 4145 2070 240 Meds/Results Medications: Active Medications Generic Name Dose Route Start Last Admin Trade Name Freq PRN Reason Stop Dose Admin Acetaminophen 650 mg 06/12/20 19:53 06/12/20 21:21 Acetaminophen 325 Mg Tablet PO 650 mg Q4H PRN Administration Mild Pain (1-3) or Fever Hydrocodone Bitart/Acetaminophen 1 tab 06/13/20 07:14 06/15/20 12:25 Hydrocodone/Acetaminophen (*Crx) 5-325 Mg Tablet PO 1 tab Q6-8H PRN Administration Pain (Scale Score 7-10) Albuterol 2 puff 06/13/20 08:00 Albuterol Sulfate (*Sp) Aerosol 1 Puff INHALATION Q4HRT PRN shortness of breath or wheezin Alprazolam 0.5 mg 06/13/20 07:12 Alprazolam (*Crx) 0.5 Mg Tablet PO TID PRN anxiety Carvedilol 12.5 mg 06/13/20 09:00 06/16/20 08:57 Carvedilol 12.5 Mg Tablet PO 12.5 mg Q12HR ARCADIO Administration Choles
--- NOTE | 2020-06-16 12:43 | PM.DS ---
DS: Admitting Diagnosis Admitting Diagnosis Admitting Diagnosis: Multiple falls in the last 2 days DS: Discharge Diagnosis Discharge Diagnosis (1) Orthostatic hypotension: Code(s): I95.1 - Orthostatic hypotension Status: Resolved Assessment and Plan: Pt is not tilting anymore pt was hydrated with fluids, pt is eating and drinking well stable for dischrage (2) Hypokalemia: Code(s): E87.6 - Hypokalemia Status: Resolved Assessment and Plan: Pt had potassium supplements (3) Hypomagnesemia: Code(s): E83.42 - Hypomagnesemia Status: Acute Assessment and Plan: Pt had magnesium supplements (4) Near syncope: Code(s): R55 - Syncope and collapse Status: Acute Assessment and Plan: Resolved after fluid hydration (5) Frequent falls: Code(s): R29.6 - Repeated falls Status: Acute Assessment and Plan: Secondary to hypovolemia, pt had PT/ OT while in the hospital. (6) Acute hypokalemia: Code(s): E87.6 - Hypokalemia Status: Acute Assessment and Plan: Resolved potassium replaced. (7) Diarrhea: Code(s): R19.7 - Diarrhea, unspecified Status: Acute Assessment and Plan: Try to control with Imodium could be cancer related symptom or post chemotherapy related. GI consulted advised loperamide prn diarrhea. Pt can use cholestyramine and have low fat diet. Diarrhea may be a side effect of of post chemotherapy. Pt has history of colon cancer and was on chemotherapy recently. DS: Summary Hospital Course Hospital Course: Interval history : Patient has orthostatic hypotension resulting in near syncopal events and multiple falls. Patient feels better after IV fluid hydration. The patient's blood pressures have been borderline low. Will hold the patient's home Norvasc and decrease the patient's Coreg dose to 12.5 mg p.o. b.i.d.. The patient did have hypokalemia which has improved but not quite resolved. Will give the patient 40 mEq of potassium chloride powder. Will change the patient's home potassium to 40 mEq b.i.d.. Patient has accompanying hypo magnesemia will give a 3 g magnesium sulfate rider. Will avoid oral potassium supplements as this could make the patient's chronic diarrhea worse. Will resume the patient's home anti diarrheal medication. The patient has been placed on fall precautions. Pt had PT/ OT for dizziness and falls. Pt seen by GI, diarrhea settled on cholestyramine, loperamide and Imodium. Time Spent with Patient Time attestation: Total time spent providing and/or coordinating discharge services:40 minutes on day of discharge Exam Narrative: Exam Narrative: General: Chronically ill-appearing Respiratory: Clear to auscultation bilaterally Cardiovascular: Regular rate, regular rhythm Gastrointestinal: Soft, nontender, slightly distended, normoactive bowel sounds Skin: Generalized pallor, non jaundice, cool to touch Musculoskeletal: No clubbing, cyanosis or pitting edema Neurological: Alert and oriented, speech is clear, good historian, no localizing neurologic deficits Psychiatric: Appropriate mood and affect, pleasant and cooperative : Deferred Hematologic/lymphatic: No petechiae, right periorbital bruising, no lymphadenopathy DS: Data Data Completed and Pending Labs on day of discharge: Labs from last 24 hours 06/16/20 07:24 Sodium 134 L Potassium 4.1 Chloride 110 H Carbon Dioxide 22 Anion Gap 2 L BUN 5 L Creatinine 0.90 Estim Creat Clear Calc 55 Estimated GFR > 60 Glucose 86 Calcium 8.5 Discharge Plan Discharge Attending physician on discharge: Vashti Mc Consulting providers: Jose Alejandro Kumar ; Blane Alvarado Discharging Clinician: ENZO Anticipated Discharge Date/Time: 06/16/20 12:39 Patient Disposition: Home, Self-Care Activity: as tolerated Diet: low fat Discharge Instructions: Pt can use
== END 2020-06-16 13:50 | disposition home or self-care (01) | DRG 312 ==
LOC: ANHED 20:05 → ANH3MED 21:57
PROVIDERS: Internal Medicine; Admitting Provider Internal Medicine; Emergency Provider Family Medicine; PCP Family Medicine; Visit Provider Family Medicine
DX: I95.1 Orthostatic hypotension (principal); K52.1 Toxic gastroenteritis and colitis; C18.9 Malignant neoplasm of colon, unspecified; T45.1X5A Adverse effect of antineoplastic and immunosuppressive drugs, initial encounter; R19.7 Diarrhea, unspecified; E87.6 Hypokalemia; E83.42 Hypomagnesemia; R29.6 Repeated falls; F41.8 Other specified anxiety disorders; I12.9 Hypertensive chronic kidney disease with stage 1 through stage 4 chronic kidney disease, or unspecified chronic kidney disease; N18.30 Chronic kidney disease, stage 3 unspecified; G62.9 Polyneuropathy, unspecified; M51.36 Other intervertebral disc degeneration, lumbar region; E78.5 Hyperlipidemia, unspecified; D50.9 Iron deficiency anemia, unspecified; I73.9 Peripheral vascular disease, unspecified; M81.0 Age-related osteoporosis without current pathological fracture; Z90.710 Acquired absence of both cervix and uterus; Z87.891 Personal history of nicotine dependence
CPT/HCPCS: 36415; 70450; 71045; 80048; 80053; 83605; 83690; 83735; 85025; 85610; 86850; 86900; 86901; 93005; 96374; 97110; 97116; 97161; 97165; 97530; 97535; 99285; A9270; J2270; J3475; J3480; J7030

== ENCOUNTER 2020-06-23 11:04 | Outpatient (CLI) | payer BC, SELFPAY ==
[2020-06-23 11:46] LABS: Basophils Absolute Auto 0.1 K/mm3 (0.0-0.1); Basophils Percent Auto 0.6 % (0.2-1.2); Eosinophils Absolute Auto 0.4 K/mm3 (0-0.3); Eosinophils Percent Auto 3.3 % (0-4.4); Hematocrit 38.1 % (37.0-47.0); Hemoglobin 13.2 g/dL (12.0-15.0); Immature Granulocyte Absolute 0.19 K/mm3 (0.00-0.031); Immature Granulocyte Percent A 1.7 % (0-0.5); Lymphocytes Absolute Auto 3.22 K/mm3 (0.9-3.2); Lymphocytes Percent Auto 29.1 % (18.3-44.2); Mean Corpuscular HGB Conc 34.6 g/dl (32-36); Mean Corpuscular Hemoglobin 31.8 pg (26-34); Mean Corpuscular Volume 91.8 fl (80-100); Mean Platelet Volume 9.1 fl (7.4-10.4); Monocytes Absolute Auto 1.1 K/mm3 (0.1-0.6); Monocytes Percent Auto 9.5 % (2.6-8.5); Neutrophils Absolute Auto 6.2 K/mm3 (1.3-6.7); Neutrophils Percent Auto 55.8 % (45.5-73.1); Platelet Count Result 401 k/mm3 (150-375); Red Blood Count 4.15 M/mm3 (4.2-5.4); Red Cell Distribution Width 18.7 % (11.5-14.5); White Blood Count 11.1 K/mm3 (4.5-10.0)
[2020-06-23 11:57] LABS: Alanine Aminotransferase 21 U/L (4-35); Albumin Level 3.4 g/dL (3.5-5.1); Alkaline Phosphatase 149 U/L (38-126); Anion Gap 3 mmol/L (8-16); Aspartate Amino Transferase 34 U/L (14-36); Bilirubin,Total 0.8 mg/dL (0.2-1.3); Blood Urea Nitrogen 13 mg/dL (7-17); Calcium 9.4 mg/dL (8.4-10.2); Carbon Dioxide 32 mmol/L (22-30); Chloride 99 mmol/L (98-107); Estimated Glomerular Filt Rate 41; Glucose 117 mg/dL (65-105); Potassium 3.6 mmol/L (3.4-5.0); Sodium 134 mmol/L (137-145)
== END 2020-06-23 11:05 | disposition home or self-care (01) ==
PROVIDERS: PCP Family Medicine; Referring Provider Internal Medicine Hematology & Oncology; Visit Provider Nurse Practitioner Family
DX: C18.2 Malignant neoplasm of ascending colon (principal)
CPT/HCPCS: 36415; 80053; 85025

== ENCOUNTER 2020-07-01 10:52 | Outpatient (CLI) | payer BC, SELFPAY ==
[2020-07-01 11:55] LABS: Albumin Level 3.4 g/dL (3.5-5.1); Anion Gap 6 mmol/L (8-16); Blood Urea Nitrogen 13 mg/dL (7-17); Calcium 9.5 mg/dL (8.4-10.2); Carbon Dioxide 29 mmol/L (22-30); Chloride 102 mmol/L (98-107); Estimated Glomerular Filt Rate 35; Glucose 100 mg/dL (65-105); Phosphorus 4.1 mg/dL (2.5-4.5); Potassium 3.8 mmol/L (3.4-5.0); Sodium 137 mmol/L (137-145)
[2020-07-01 12:06] LABS: Parathyroid Intact 103.6 pg/mL (7.5-53.5)
[2020-07-01 12:25] LABS: Creatinine Urine 266.4 mg/dL; Total Protein Urine Random 18 mg/dL; Ur Ttl Prot Creatinine Ratio 0.07 mg/mg (0-0.20)
[2020-07-01 13:01] LABS: Vitamin D 25 Hydroxy 45.9 ng/mL
== END 2020-07-01 10:53 | disposition home or self-care (01) ==
LOC: ANHLAB 10:58
PROVIDERS: PCP Family Medicine; Visit Provider Internal Medicine Nephrology
DX: R60.0 Localized edema (principal); I12.9 Hypertensive chronic kidney disease with stage 1 through stage 4 chronic kidney disease, or unspecified chronic kidney disease; N18.32 Chronic kidney disease, stage 3b
CPT/HCPCS: 36415; 80069; 82306; 82570; 83970; 84156

== ENCOUNTER 2020-09-05 10:00 | Outpatient (RCR) | payer BC, SELFPAY ==
--- NOTE | 2020-07-28 10:06 | PTOPEVAL ---
PHYSICAL THERAPY EVALUATION AND PLAN OF CARE 07-28-20 Thank you for referring Eladia Mock to [facility].? She is scheduled to be seen for therapy? 1x/week for 6 weeks. Due to her schedule and transportation, can only attend 1x/wk. Please review, sign, date and return this plan of care CARLOS ENRIQUE. I agree with and certify that the following plan of care is medically necessary. Referring Physician Date Attending Provider: Deny Canseco MD *PT Outpatient Evaluation Document 07/28/20 08:55 FLAVIA (Rec: 07/28/20 10:06 FLAVIA [id number]) Outpatient Past Medical History Past Medical History Source of Past Medical History Recalled from Previous Visit, Confirmed with Patient/Family Neurological History Hx Other Neurological Disorders Yes: NEUROPATHY HIPS DOWN TO FEET Cardiovascular History Hx Heart Murmur Yes: PRESENT AT Hx Hypertension Yes: meds; norm 140/90, monitors at home Respiratory History Hx Bronchitis Yes: CHRONIC Gastrointestinal History Hx Diverticulitis Yes Hx Gall Bladder Disease Yes: GALL STONES- monitoring, may need surgery Hx Gastroesophageal Reflux Disease Yes Hx Irritable Bowel Yes Hx Polyps Yes: removed 12/31 Hx Other Gastrointestinal Disorders Yes: COLON CA-hemicolectomy , with chemo therapy, finish ; Genitourinary History Hx Kidney Stones Yes: SURGERY APRIL & OCT 2019 Musculoskeletal History Hx Back Pain Yes Hx Crutches or Walker Use Yes Query Text:If Yes, Enter Crutches, Walker, or Both in the Comment Hx Degenerative Disk Disease Yes: neck and back Hx Osteoporosis Yes Hx Other Musculoskeletal Disorders Yes: chronic neck pain Hematological History Hx Hematological Disorders No Significant History Endocrine History Hx Endocrine Disorders No Significant History HEENT History Hx Dental Problems Yes: full upper dentures, partial lower dentures Hx Other HEENT Disorders Yes: HAS GLASSES BUT DOESN'T WEAR THEM Integumentary History Hx Other Skin Disorders Yes: RASH FROM ORAL CHEMO Reproductive History Hx Hysterectomy Yes: PARTIAL 1985, due to precancerous Psychosocial History Hx Anxiety Yes: AGORAPHOBIA- panic when go out to stores and away from doors Hx Depression Yes Hx Other Psychiatric Disorders Yes: panic attacks; nerves triggered Pain History Has Past Pain Affected
--- NOTE | 2020-08-29 08:50 | PCPTNOTE ---
pt called and canceled today's appt;
--- NOTE | 2020-09-05 10:30 | PTOPEVAL ---
PHYSICAL THERAPY DISCHARGE 09-05-20 Discharge PT services. Mrs. Mock imiproved and all goals were achieved. Thank you for referring Eladia Mock to [facility].? Please review, sign, date and return this Discharge CARLOS ENRIQUE. I agree with and certify that the following plan of care is medically necessary. Referring Physician Date Attending Provider: Deny Canseco MD Document 09/05/20 10:00 FLAVIA (Rec: 09/05/20 10:30 FLAVIA [id number]) Assessment Status Discharge Subjective Information Eladia reports: have not had Query Text:As Reported By Patient/ any falls since started Family therapy; does not have dizziness when get up at night to go to bathroom; do get dizzy when sit in bed and stand up; is careful and sit for about 5 minutes, then walk and am OK; going to get eyes checked; have to move head careful because neck hurts when move it side/side; am doing leg exercises at home- feel like legs are stronger; under a lot of stress past few weeks, family ill and issues; have not had any headaches; agrees to discharge from PT. Pain Assessment Timing of Pain Assessment Timing of Pain Assessment Assessment Self Report Self Report Pain Level 0 Pain Score Pain Score 0: Self Report Gait Assessment 2 Minute Walk Total Distance Walked (feet) 320 2 Minute Walk Gait Speed Score (feet/ 2.66 second) 2 Minute Walk Test Comments with cane; good step length and gait pattern; Vestibular Evaluation Vestibular Testing Vestibular Testing Comments Dizziness Handicap Index score of 20/100; sitting and standing head turn to R/L 3x without s/s; pick item up off floor, using cane without s/s; supine/sit/stand without s/s, does allow for rest with positional changes; discussed and educated: reviewed HEP, leg strengthening; increase walking as tolerated; continue to monitor BP;
== END 2020-10-12 12:56 | disposition home or self-care (01) ==
LOC: ANHPT 10:00
PROVIDERS: PCP Family Medicine; Visit Provider Family Medicine
DX: H81.13 Benign paroxysmal vertigo, bilateral (principal)
CPT/HCPCS: 97110; 97162

== ENCOUNTER 2020-09-13 10:21 | Outpatient (CLI) | payer BC, SELFPAY ==
--- NOTE | ~2020-09-13 | CT_ITS ---
EXAMINATION: CT abdomen pelvis w con DATE: 09/13/2020 11:11 INDICATION: Malignant neoplasm of ascending colon; restaging TECHNIQUE: Computed tomography (CT) of the abdomen and pelvis was performed with 100 cc Omnipaque 350 intravenous contrast. Automated exposure control and iterative reconstruction technique were employe d. Exam dose: 486.07 mGy-cm total exam DLP. COMPARISON: 05/04/2020 CT abdomen pelvis FINDINGS: No infiltrate, consolidation or mass lesions are noted at the lung bases. Mild discoid atel ectasis or scarring is noted. Normal heart size. No pericardial or pleural effusion. There is diffuse hepatic steatosis with minimal sparing in the pericholecystic area primarily. There are 2 calcified gallstones measuring up to approximately 1.3 cm dimension. No abnormal gallbladder wa ll thickening or pericholecystic fluid or fat stranding. No bile duct or pancreatic duct dilatation. No pancreatic mass lesion or calcification. Normal splenic size. Normal morphology of the adrenal glands. There is persistent lobation or chronic pyelonephritis of the kidneys. There are at least 5 left renal cysts, ranging from very small to 1.8 cm dimension. No urinary tract calculus or hydroureteronephrosis. The urinary bladder is relatively evacuated, unremarkable. Status post hysterectomy. Normal caliber of the abdominal aorta. No intraperitoneal or retroperitoneal or pelvic mass lesion or adenopathy or ascites is evident. There is partial resection of the right colon. No bowel obstruction, bowel wall thickening, pneumatos is or intraperitoneal free air is detected. Hemangioma of T12 vertebral body. Again noted is borderline grade 1/grade 2 anterolisthesis and prominent degenerative disc disease at L5-S1. IMPRESSION: Status post right partial colectomy for carcinoma the ascending colon; no recurrent or m etastatic disease is noted Hepatic steatosis Cholelithiasis Probable bilateral chronic pyelonephritis Left renal cysts Status post hysterectomy Reviewed, dictated and finalized at [facility]. Reviewed, dictated and finalized at [facility]. IMPRESSION: Status post right partial colectomy for carcinoma the ascending co rene; no recurrent or metastatic disease is noted Hepatic steatosis Cholelithiasis Probable bilateral chronic pyelonephritis Left renal cysts Status post hysterectomy
[2020-09-13 11:00] LABS: Estimated Glomerular Filt Rate 35
== END 2020-09-13 10:22 | disposition home or self-care (01) ==
PROVIDERS: PCP Family Medicine; Visit Provider Internal Medicine Hematology & Oncology
DX: C18.2 Malignant neoplasm of ascending colon (principal); K76.0 Fatty (change of) liver, not elsewhere classified; K80.20 Calculus of gallbladder without cholecystitis without obstruction; N28.1 Cyst of kidney, acquired
CPT/HCPCS: 74177; Q9967

== ENCOUNTER 2020-09-21 12:14 | Outpatient (CLI) | payer BC, SELFPAY ==
[2020-09-21 12:53] LABS: Basophils Percent Auto 0.3 % (0.2-1.2); Eosinophils Absolute Auto 0.1 K/mm3 (0-0.3); Eosinophils Percent Auto 1.7 % (0-4.4); Hematocrit 43.7 % (37.0-47.0); Hemoglobin 14.4 g/dL (12.0-15.0); Immature Granulocyte Absolute 0.04 K/mm3 (0.00-0.031); Immature Granulocyte Percent A 0.6 % (0-0.5); Lymphocytes Absolute Auto 2.87 K/mm3 (0.9-3.2); Lymphocytes Percent Auto 40.1 % (18.3-44.2); Mean Corpuscular Hemoglobin 28.7 pg (26-34); Mean Corpuscular Volume 87.1 fl (80-100); Mean Platelet Volume 9.5 fl (7.4-10.4); Monocytes Absolute Auto 0.5 K/mm3 (0.1-0.6); Monocytes Percent Auto 6.6 % (2.6-8.5); Neutrophils Absolute Auto 3.6 K/mm3 (1.3-6.7); Neutrophils Percent Auto 50.7 % (45.5-73.1); Platelet Count Result 324 k/mm3 (150-375); Red Blood Count 5.02 M/mm3 (4.2-5.4); Red Cell Distribution Width 12.4 % (11.5-14.5); White Blood Count 7.2 K/mm3 (4.5-10.0)
[2020-09-21 13:04] LABS: Alanine Aminotransferase 26 U/L (4-35); Albumin Level 4.1 g/dL (3.5-5.1); Alkaline Phosphatase 147 U/L (38-126); Anion Gap 9 mmol/L (8-16); Aspartate Amino Transferase 34 U/L (14-36); Bilirubin,Total 0.7 mg/dL (0.2-1.3); Blood Urea Nitrogen 12 mg/dL (7-17); Calcium 9.9 mg/dL (8.4-10.2); Carbon Dioxide 31 mmol/L (22-30); Chloride 100 mmol/L (98-107); Estimated Glomerular Filt Rate 35; Glucose 115 mg/dL (65-110); Potassium 3.3 mmol/L (3.4-5.0); Sodium 140 mmol/L (137-145)
[2020-09-21 13:36] LABS: Carcinoembryonic Antigen 2.4 ng/mL (0.0-3.0)
== END 2020-09-21 12:15 | disposition home or self-care (01) ==
PROVIDERS: PCP Family Medicine; Visit Provider Internal Medicine Hematology & Oncology
DX: C18.2 Malignant neoplasm of ascending colon (principal)
CPT/HCPCS: 36415; 80053; 82378; 85025

== ENCOUNTER 2020-12-03 17:55 | Emergency (ER) | payer BC, SELFPAY ==
--- NOTE | ~2020-12-03 | XR_ITS ---
XR knee LT 3V DATE: 12/03/2020 18:21 INDICATION: Anterior and lateral left knee pain TECHNIQUE: 3 views COMPARISON: None FINDINGS: There is moderate suprapatellar knee joint effusion. Diffuse osteopenia. There is mild periarticular spurring at the medial compartment. No fracture or dislocation, periosteal reaction or bone destruction. No radiopaque intra-articular lo ose body or chondrocalcinosis. IMPRESSION: Moderate suprapatellar knee joint effusion Mild medial compartment osteoarthritis Osteopenia Reviewed, dictated and finalized at location [facility].
[2020-12-03 17:57] VITALS: BP 128/64; PULSE 87; RESP 16; TEMP 37.1; O2SAT 97
--- NOTE | 2020-12-03 18:14 | ED.GENADULT ---
HPI - General Adult General Chief complaint: Extremity Injury, Lower <Alejandra Figueroa PA-C - Last Filed: 12/03/20 18:50> Stated complaint: left knee injury <Alejandra Figueroa PA-C - Last Filed: 12/03/20 18:50> Time Seen by Provider: 12/03/20 18:13 <Alejandra Figueroa PA-C - Last Filed: 12/03/20 18:50> Source: patient <Alejandra Figueroa PA-C - Last Filed: 12/03/20 18:50> Mode of arrival: ambulatory <Alejandra Figueroa PA-C - Last Filed: 12/03/20 18:50> Limitations: no limitations <Alejandra Figueroa PA-C - Last Filed: 12/03/20 18:50> History of Present Illness HPI narrative: Patient is here for evaluation of knee pain. She experienced a pop yesterday while she was trying to push her mattress onto the frame. She states that she has significant pain at her kneecap and to the lateral aspect. Occasionally with electric-like shock sent on her foot. She is wearing a brace at this time states that helps with the pain. She routinely takes [place]'s 3 times a day she she states that is not helping the pain. <Alejandra Figueroa PA-C - Last Filed: 12/03/20 18:50> Onset (ago): hour(s) <Alejandra Figueroa PA-C - Last Filed: 12/03/20 18:50> Severity scale (1-10): 9 <QUETA Chand Last Filed: 12/03/20 18:50> Quality: sharp <QUETA Chand Last Filed: 12/03/20 18:50> Pain Consistency: constant <QUETA Chand Last Filed: 12/03/20 18:50> Relieving factors: immobilization <QUETA Chand Last Filed: 12/03/20 18:50> Exacerbating factors: movement <QUETA Chand Last Filed: 12/03/20 18:50> Associated symptoms: denies other symptoms <Alejandra Figueroa PA-C - Last Filed: 12/03/20 18:50> Related Data Home medications: Home Medications Medication Instructions Recorded Confirmed cholecalciferol (vitamin D3) 50 mcg PO DAILY 09/12/19 11/10/20 Centrum Silver Women 1 tablet PO DAILY 01/04/20 11/10/20 albuterol sulfate [ProAir HFA] 2 inhalation INHALATION Q4H PRN 06/12/20 11/10/20 bumetanide 1 mg tablet 1 mg PO TID tablet 08/09/20 11/10/20 simethicone 125 mg capsule 125 mg PO DAILY PRN 08/09/20 11/10/20 Saccharomyces boulardii [Florastor] 250 mg PO DAILY 11/10/20 11/10/20 <Alejandra Figueroa PA-C - Last Filed: 12/03/20 18:50> Allergies/adverse reactions: Allergies Allergy/AdvReac Type Severity Reaction Status Date / Time levofloxacin Allergy Severe Hallucinati Verified 12/03/20 17:56 ons Penicillins Allergy Severe HIVES Verified 12/03/20 17:56 A CHILD aspirin Allergy Mild ITCHING, Verified 12/03/20 17:56 GI UPSET carisoprodol AdvReac Mild Gastrointestinal Verified 12/03/20 17:56 Upset salicylates AdvReac Mild GI UPSET Verified 12/03/20 17:56 <Alejandra Figueroa PA-C - Last Filed: 12/03/20 18:50> Review of Systems Review of Systems: All systems reviewed & are unremarkable except as noted in HPI and below <Alejandra Figueroa PA-C - Last Filed: 12/03/20 18:50> [facility] Past Medical History Medical History: Medical History Agoraphobia with panic attacks Anxiety disorder, unspecified Benign hypertension with CKD (chronic kidney disease) stage III Benign positional vertigo Bladder spasm BMI 25.0-25.9,adult Cholelithiasis Chronic back pain Chronic diarrhea Chronic kidney disease, stage III (moderate) Colon cancer (12/2019) Adenocarcinoma stage IIA with right hemicolectomy DDD (degenerative disc disease) Degenerative cervical disc Depression Diastolic dysfunction Noted on echocardiogram from 2017 with preserved ejection fraction Essential (primary) hypertension HTN (hypertension) Hyperlipidemia IBS (irritable bowel syndrome) Iron deficiency anemia Kidney mass Lumbar degenerative disc disease Murmur Benign flow murmur Nephrolithiasis Right side x2 Osteoporosis Peripheral neuropathy PVD (peripheral vascular disease) Trau
== END 2020-12-03 19:16 | disposition home or self-care (01) ==
PROVIDERS: Emergency Provider General Practice; PCP Family Medicine
DX: M25.462 Effusion, left knee (principal); I13.0 Hypertensive heart and chronic kidney disease with heart failure and stage 1 through stage 4 chronic kidney disease, or unspecified chronic kidney disease; N18.30 Chronic kidney disease, stage 3 unspecified; I50.30 Unspecified diastolic (congestive) heart failure; E78.5 Hyperlipidemia, unspecified; K58.9 Irritable bowel syndrome, unspecified; D50.9 Iron deficiency anemia, unspecified; I73.9 Peripheral vascular disease, unspecified; G62.9 Polyneuropathy, unspecified; Z85.038 Personal history of other malignant neoplasm of large intestine; Z90.49 Acquired absence of other specified parts of digestive tract; Z87.442 Personal history of urinary calculi; Z87.820 Personal history of traumatic brain injury; Z87.891 Personal history of nicotine dependence
CPT/HCPCS: 73562; 99283

== ENCOUNTER 2020-12-09 00:08 | Day surgery (SDC) | payer BC, SELFPAY ==
[2020-11-10 11:11] VITALS: BMI 24.1
[2020-12-09 06:10] VITALS: BP 128/84; PULSE 83; RESP 18; TEMP 36.1; O2SAT 97; BMI 26.6
[2020-12-09] MEDS: LACTATED RINGERS 1,000 ML 150 ML IV CONT (06:34)
--- NOTE | 2020-12-09 06:40 | WPDANESEPPF ---
Anes - Initial Pre Proc Eval Procedure: Operation Date: 12/09/20 07:30 Proposed Procedures p Screening Colonoscopy - Manny Longoria MD Date/Time: 12/09/20 06:40 Surgeon: Manny Longoria MD Pre Op Diagnosis: hx of colon ca Patient Data Age: 64 Gender: F Height: 1.7 m Weight: 77.1 kg Last Vital Signs Temp 36.1 C L 12/09/20 06:10 Pulse 83 12/09/20 06:10 Resp 18 12/09/20 06:10 BP 128/84 12/09/20 06:10 Pulse Ox 97 12/09/20 06:10 Allergies Allergy/AdvReac Type Severity Reaction Status Date / Time levofloxacin Allergy Severe Hallucinati Verified 12/09/20 06:21 ons Penicillins Allergy Severe HIVES Verified 12/09/20 06:21 A CHILD aspirin Allergy Mild ITCHING, Verified 12/09/20 06:21 GI UPSET carisoprodol AdvReac Mild Gastrointestinal Verified 12/09/20 06:21 Upset salicylates AdvReac Mild GI UPSET Verified 12/09/20 06:21 Home Medications Medication Instructions Recorded Confirmed Type cholecalciferol (vitamin D3) 50 mcg PO DAILY 09/12/19 12/09/20 History Centrum Silver Women 1 tablet PO DAILY 01/04/20 12/09/20 History albuterol sulfate [ProAir HFA] 2 inhalation INHALATION Q4H PRN 06/12/20 12/09/20 History bumetanide 1 mg tablet 1 mg PO TID tablet 08/09/20 12/09/20 History simethicone 125 mg capsule 125 mg PO DAILY PRN 08/09/20 12/09/20 History gabapentin 300 mg capsule 300 mg PO TID #90 cap 09/01/20 12/09/20 Rx amlodipine 5 mg tablet 5 mg PO DAILY #30 tablet 10/04/20 12/09/20 Rx carvedilol 25 mg tablet 25 mg PO Q12H #60 tablet 10/04/20 12/09/20 Rx diphenoxylate-atropine 2.5 1 tablet PO QID PRN #120 tablet 10/11/20 12/09/20 Rx mg-0.025 mg tablet ferrous sulfate 325 mg (65 mg 325 mg PO TID #90 tablet 11/06/20 12/09/20 Rx iron) tablet hydrocodone 5 mg-acetaminophen 325 1 tablet PO Q6-8H PRN #90 tablet 11/07/20 12/09/20 Rx mg tablet Saccharomyces boulardii [Florastor] 250 mg PO DAILY 11/10/20 12/09/20 History cyclobenzaprine 10 mg tablet See Rx Instructions .ROUTE 12/01/20 12/09/20 Rx .COMPLEX #90 tablet hydroxyzine HCl 25 mg tablet See Rx Instructions .ROUTE 12/01/20 12/09/20 Rx .COMPLEX #90 tablet potassium chloride 20 mEq See Rx Instructions .ROUTE 12/01/20 12/09/20 Rx tablet,extended release .COMPLEX #30 tablet Patient hx anesthesia problems: none Family hx anesthesia problems: none Results Review: All pre-operative results and documents have been reviewed as part of the pre-operative evaluation. [facility] Past Medical History Medical History Agoraphobia with panic attacks Anxiety disorder, unspecified Benign hypertension with CKD (chronic kidney disease) stage III Benign positional vertigo Bladder spasm BMI 25.0-25.9,adult BMI 27.0-27.9,adult Cholelithiasis Chronic back pain Chronic diarrhea Chronic kidney disease, stage III (moderate) Colon cancer (12/2019) Adenocarcinoma stage IIA with right hemicolectomy DDD (degenerative disc disease) Degenerative cervical disc Depression Diastolic dysfunction Noted on echocardiogram from 2017 with preserved ejection fraction Essential (primary) hypertension HTN (hypertension) Hyperlipidemia IBS (irritable bowel syndrome) Iron deficiency anemia Kidney mass Lumbar degenerative disc disease Murmur Benign flow murmur Nephrolithiasis Right side x2 Osteoporosis Peripheral neuropathy PVD (peripheral vascular disease) Traumatic brain injury Surgical History Surgical History H/O colonoscopy with polypectomy H/O lithotripsy History of hemicolectomy (~01/14/20) Hand assisted laparoscopic right hemicolectomy with ileocolic anastomosis History of hysterectomy (~1985) Without oophorectomy History of renal stent 04/2019, 10/2019 Family History Family History Mother Carcinoma of colon Hypertension Rheumatoid art
--- NOTE | 2020-12-09 07:29 | PM.HPGS ---
History of Present Illness History of Present Illness Consent: Risks, benefits, and alternatives have been discussed and questions answered. Patient agrees to proceed with procedure. Chief complaint: hx of colon ca Narrative: Eladia Mock is a 64 year old female with colon cancer 1 year ago s/p rt hemicolectomy, both parents had colon cancer. No more diarrhea. Review of Systems Constitutional: Constitutional: Denies headache(s) and Denies weakness Eyes: Eyes: Denies blurry vision ENT: Reports Normal hearing present, Denies headache(s) and Denies neck pain Cardiovascular: Cardiovascular: Denies chest pain and Denies dyspnea Respiratory: Respiratory: Denies dyspnea Gastrointestinal: Gastrointestinal: Reports no additional gastrointestinal complaints Genitourinary: Genitourinary: Denies dysuria Musculoskeletal: Musculoskeletal: Denies neck pain Integumentary/Breasts: Skin/Breast: Denies dry skin Neurologic: Reports Normal hearing present, Denies headache(s) and Denies weakness Psychiatric: Psychiatric: Denies anxiety Endocrine: Endocrine: Denies change in body appearance Hematologic/Lymphatic: Hematologic/Lymphatic: Denies easy bleeding Allergic/Immunologic: Allergic/Immunologic: Denies urticaria PMFSH Past Medical History Medical History Agoraphobia with panic attacks Anxiety disorder, unspecified Benign hypertension with CKD (chronic kidney disease) stage III Benign positional vertigo Bladder spasm BMI 25.0-25.9,adult BMI 27.0-27.9,adult Cholelithiasis Chronic back pain Chronic diarrhea Chronic kidney disease, stage III (moderate) Colon cancer (12/2019) Adenocarcinoma stage IIA with right hemicolectomy DDD (degenerative disc disease) Degenerative cervical disc Depression Diastolic dysfunction Noted on echocardiogram from 2017 with preserved ejection fraction Essential (primary) hypertension HTN (hypertension) Hyperlipidemia IBS (irritable bowel syndrome) Iron deficiency anemia Kidney mass Lumbar degenerative disc disease Murmur Benign flow murmur Nephrolithiasis Right side x2 Osteoporosis Peripheral neuropathy PVD (peripheral vascular disease) Traumatic brain injury Surgical History Surgical History H/O colonoscopy with polypectomy H/O lithotripsy History of hemicolectomy (~01/14/20) Hand assisted laparoscopic right hemicolectomy with ileocolic anastomosis History of hysterectomy (~1985) Without oophorectomy History of renal stent 04/2019, 10/2019 Family History Family History Mother Carcinoma of colon Hypertension Rheumatoid arthritis Father Family history of diabetes mellitus in first degree relative Carcinoma of colon Hypertension Acute myocardial infarction Rheumatoid arthritis Sibling Family history of malignant neoplasm of brain Rheumatoid arthritis Other Family history of malignant neoplasm of male breast Social History Social History Social History: She lives with her of 37 years (Juan). They have 1 adult son. 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 She denies any alcohol marijuana or illicit drugs. She smoked briefly until her early 20s. Primary care physician: Dr. Deny Canseco Code status: Full code Surrogate decision maker: Juan Mock () Smoking packs per day: 0.5 Smoking cigarettes per day: 10.0 Years smoked: 10 Smoking pack-years: 5.00 Tobacco type: cigarettes Second hand tobacco smoke exposure: Yes Alcohol intake: never Substance use: never Substance use type: does not use Living arrangements: with family Gender identity (if verbaliz
[2020-12-09 08:01] VITALS: BP 115/63; PULSE 65; RESP 16; O2SAT 93
[2020-12-09 08:04] VITALS: BP 107/62; PULSE 67; RESP 17; O2SAT 98
[2020-12-09 08:14] VITALS: BP 112/67; PULSE 65; RESP 22; O2SAT 98
== END 2020-12-09 08:33 | disposition home or self-care (01) ==
PROVIDERS: PCP Family Medicine; Visit Provider Internal Medicine Gastroenterology
PROC: 0DJD8ZZ Inspection of Lower Intestinal Tract, Via Natural or Artificial Opening Endoscopic (ICD-10-PCS; CPT 45378; principal; 2020-12-09 07:30)
DX: Z08 Encounter for follow-up examination after completed treatment for malignant neoplasm (principal); Z85.038 Personal history of other malignant neoplasm of large intestine; D12.3 Benign neoplasm of transverse colon; I12.9 Hypertensive chronic kidney disease with stage 1 through stage 4 chronic kidney disease, or unspecified chronic kidney disease; N18.30 Chronic kidney disease, stage 3 unspecified; K58.9 Irritable bowel syndrome, unspecified; I73.9 Peripheral vascular disease, unspecified; D50.9 Iron deficiency anemia, unspecified; E78.5 Hyperlipidemia, unspecified; M50.30 Other cervical disc degeneration, unspecified cervical region; M51.36 Other intervertebral disc degeneration, lumbar region; M81.0 Age-related osteoporosis without current pathological fracture; M54.9 Dorsalgia, unspecified; G89.29 Other chronic pain; G62.9 Polyneuropathy, unspecified; R01.1 Cardiac murmur, unspecified; H81.10 Benign paroxysmal vertigo, unspecified ear; F41.9 Anxiety disorder, unspecified; F32.A Depression, unspecified; F40.01 Agoraphobia with panic disorder; Z87.820 Personal history of traumatic brain injury; Z90.49 Acquired absence of other specified parts of digestive tract; Z80.0 Family history of malignant neoplasm of digestive organs
CPT/HCPCS: 45385; 88305; J2001; J2704; J7120

== ENCOUNTER 2021-01-02 09:42 | Outpatient (RCR) | payer BC, SELFPAY ==
--- NOTE | 2021-01-02 10:51 | PTOPEVAL ---
PHYSICAL THERAPY EVALUATION Thank you for referring Eladia Mock to [facility].? Adelina was evaluated for the dx of left knee pain/injury. The patient is scheduled to be seen for therapy? 1 x/week for 1 weeks. Please review, sign, date and return this plan of care CARLOS ENRIQUE. I agree with and certify that the following plan of care is medically necessary. Referring Physician Date Attending Provider: Rd Funes MD *PT Outpatient Evaluation Start: 01/02/21 09:52 Freq: Status: Active Protocol: Document 01/02/21 09:52 [facility] (Rec: 01/02/21 10:39 MLV [id number]) Therapy Assessment Status Assessment Status Assessment Status Evaluation Evaluation Information Problem Diagnosis left knee pain Onset 2020 Additional Evaluation Detail The patient tried to move a bed with her leg and her knee popped, causing severe pain. The patient had trouble weightbearing, swelling, pain at rest. The patient saw MD, had an xray which showed no fractures. The patient started doing some exercises after seeing the MD and reports her knee is lot better, only having pain with stairs. 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 The patient wants to be seen just 1-2 visits to get exercises to do on her own since her knee feels a lot better. Pain Assessment Timing of Pain Assessment Timing of Pain Assessment Assessment Self Report Self Report Pain Level 0 Pain Score Pain Score 0: Self Report Lower Extremity Range of Motion General Lower Extremity Range of Motion Reason Not Measured WNL/Right Gross Lower Extremity Range of Motion right knee motion 0-127' Comments active; ankle DF 8' left knee motion 0-123' active ; ankle DF 5' with report of tightness with motion Lower Extremity Muscle Strength Testing General Lower Extremity Strength Reason Not Measured WNL/Left,WNL/Right Muscle Length Testing Muscle Length Testing Piriformis w/Hip Flexion >90 Degrees (R) Moderate Tightness,(L) Moderate Tightness Pawan's Test Hip Muscle Length
--- NOTE | 2021-01-30 11:47 | PCPTNOTE ---
PHYSICAL THERAPY DISCHARGE Attending Provider: Rd Funes MD Patient:Eladia Mock Date of :1955 Patient has not returned for any further treatments since 01/02/2021, therefore she will be discharged at this time. PT called pt to check on status and reports doing well/no pain at knee, and has no therapy needs. Will continue her exercises on her own. Patient?s initial visit was on 01/02/2021 09:45 and she had a total of 1 visit. The goals have been partially met. Thank you for referring this patient to [facility]. Please review, sign, date and return this discharge summary CARLOS ENRIQUE. I have been updated about the patient's current status and I agree with discharge from the above service at this time. Referring Physician Date
== END 2021-01-31 10:14 | disposition home or self-care (01) ==
LOC: ANHPT 09:42
PROVIDERS: PCP Family Medicine; Visit Provider Orthopaedic Surgery
DX: S89.92XD Unspecified injury of left lower leg, subsequent encounter (principal); M17.12 Unilateral primary osteoarthritis, left knee; M25.562 Pain in left knee
CPT/HCPCS: 97110; 97162

== ENCOUNTER 2021-01-23 11:47 | Outpatient (CLI) | payer BC, SELFPAY ==
[2021-01-23 12:20] LABS: Alanine Aminotransferase 28 U/L (4-35); Albumin Level 4.2 g/dL (3.5-5.1); Alkaline Phosphatase 169 U/L (38-126); Anion Gap 5 mmol/L (8-16); Aspartate Amino Transferase 30 U/L (14-36); Bilirubin,Total 0.7 mg/dL (0.2-1.3); Blood Urea Nitrogen 15 mg/dL (7-17); Carbon Dioxide 30 mmol/L (22-30); Chloride 100 mmol/L (98-107); Estimated Glomerular Filt Rate 38; Glucose 110 mg/dL (65-110); Potassium 4.2 mmol/L (3.4-5.0); Sodium 135 mmol/L (137-145)
[2021-01-23 12:39] LABS: Basophils Percent Auto 0.5 % (0.2-1.2); Eosinophils Absolute Auto 0.3 K/mm3 (0-0.3); Eosinophils Percent Auto 3.3 % (0-4.4); Hematocrit 41.9 % (37.0-47.0); Hemoglobin 13.8 g/dL (12.0-15.0); Immature Granulocyte Absolute 0.03 K/mm3 (0.00-0.031); Immature Granulocyte Percent A 0.4 % (0-0.5); Lymphocytes Absolute Auto 3.37 K/mm3 (0.9-3.2); Lymphocytes Percent Auto 41.5 % (18.3-44.2); Mean Corpuscular HGB Conc 32.9 g/dl (32-36); Mean Corpuscular Hemoglobin 29.2 pg (26-34); Mean Corpuscular Volume 88.8 fl (80-100); Mean Platelet Volume 9.7 fl (7.4-10.4); Monocytes Absolute Auto 0.6 K/mm3 (0.1-0.6); Monocytes Percent Auto 7.3 % (2.6-8.5); Neutrophils Absolute Auto 3.8 K/mm3 (1.3-6.7); Platelet Count Result 338 k/mm3 (150-375); Red Blood Count 4.72 M/mm3 (4.2-5.4); Red Cell Distribution Width 12.8 % (11.5-14.5); White Blood Count 8.1 K/mm3 (4.5-10.0)
[2021-01-23 12:50] LABS: Carcinoembryonic Antigen 1.8 ng/mL (0.0-3.0)
== END 2021-01-23 11:48 | disposition home or self-care (01) ==
PROVIDERS: PCP Family Medicine; Visit Provider Internal Medicine Hematology & Oncology
DX: C18.2 Malignant neoplasm of ascending colon (principal)
CPT/HCPCS: 36415; 80053; 82378; 85025

== ENCOUNTER 2021-02-24 08:40 | Emergency (ER) | payer BC, SELFPAY ==
--- NOTE | ~2021-02-24 | CT_ITS ---
EXAMINATION: CT brain wo con DATE: 02/24/2021 09:06 INDICATION: Head injury. TECHNIQUE: Computed tomography (CT) of the head was performed without intravenous contrast. The mA wa s adjusted according to patient size. Iterative reconstruction technique was employed. The dose-lengt h product was 605.33 mGy-cm. COMPARISON: Head CT 06/12/2020, brain MRI 09/19/2019 FINDINGS: There are scattered areas of low attenuation in the cerebral white matter, which is within normal limits for the patient's age. There are small old infarcts in right temporal and parietal lobe s. There is no intracranial hemorrhage, acute infarction, or abnormal intracranial mass lesion. The v entricles are normal in size. The mastoid air cells are normal. There is mild mucosal thickening in t he paranasal sinuses. The orbits are normal. There is a right posterior scalp laceration with soft ti ssue swelling and soft tissue gas. IMPRESSION: 1. 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 Reviewed, dictated and finalized at location B. WORKER
--- NOTE | ~2021-02-24 | CT_ITS ---
EXAMINATION: CT cervical spine wo con DATE: 02/24/2021 09:06 INDICATION: Fall with head injury TECHNIQUE: Computed tomography (CT) of the cervical spine was performed without intravenous contrast. Automated exposure control and iterative reconstruction technique were employed. The dose-length pro duct was 286.90 mGy-cm. COMPARISON: Cervical spine radiographs dated 04/17/2017 FINDINGS: Unchanged minimal cervical kyphosis with 2 mm anterolisthesis C3 on C4 and C4 on C5. Vertebral body h eights are normal. No fracture. Severe disc height loss with moderate to severe uncovertebral osteoar thritis at C4-C5 through C7-T1, moderate disc height loss at C2-C3 and mild disc height loss at C3-C4 . There is also severe facet osteoarthritis on the right at C3-C4 C4-C5 and on the left at C3-C4 with fusion at C2-C3. Moderate facet osteoarthritis on the right at C2-C3 and mild osteoarthritis at the remaining bilateral cervical facet joints. Posterior disc osteophyte complexes resulting in mild cent ral canal stenosis at C4-C5 through C6-C7. There is also multilevel bilateral mild neural foraminal s tenosis most prominent on the right at C4-C5 and C5-C6. Small amount of atherosclerotic calcific a cy st at the bilateral carotid bulbs. Small coarse calcification in the left thyroid. Cervical soft tiss ues are otherwise unremarkable. Visualized airway and apices of lungs are clear. IMPRESSION: 1. Severe cervical spondylosis. No acute osseous abnormality. Reviewed, dictated and finalized at location A. [employer]
[2021-02-24 08:51] VITALS: BP 153/94; PULSE 85; RESP 16; TEMP 36.6; O2SAT 98
--- NOTE | 2021-02-24 09:09 | ED.HEATRA ---
HPI - Head Injury General Chief complaint: Head Injury Stated complaint: Fall, Head Injury Time Seen by Provider: 02/24/21 08:58 Source: patient Mode of arrival: ambulatory Limitations: no limitations History of Present Illness HPI Narrative: Patient is a 65-year-old female complaining of head injury, laceration the back of her head after she missed a step and fell backwards hitting her head on the ground prior to arrival. Patient denies any loss of consciousness. Patient was able to stand up and ambulate after the fall. Patient states that she was asymptomatic prior to the fall. Patient denies any chest pain, abdominal pain, back pain or any extremity pain/injury. Related Data Home Medications Medication Instructions Recorded Confirmed cholecalciferol (vitamin D3) 50 mcg PO DAILY 09/12/19 01/10/21 Centrum Silver Women 1 tablet PO DAILY 01/04/20 01/10/21 albuterol sulfate [ProAir HFA] 2 inhalation INHALATION Q4H PRN 06/12/20 01/10/21 bumetanide 1 mg tablet 1 mg PO TID tablet 08/09/20 01/10/21 simethicone 125 mg capsule 125 mg PO DAILY PRN 08/09/20 01/10/21 Saccharomyces boulardii [Florastor] 250 mg PO DAILY 11/10/20 01/10/21 Allergies Allergy/AdvReac Type Severity Reaction Status Date / Time levofloxacin Allergy Severe Hallucinati Verified 01/10/21 09:34 ons Penicillins Allergy Severe HIVES Verified 01/10/21 09:34 A CHILD aspirin Allergy Mild ITCHING, Verified 01/10/21 09:34 GI UPSET carisoprodol AdvReac Mild Gastrointestinal Verified 01/10/21 09:34 Upset salicylates AdvReac Mild GI UPSET Verified 01/10/21 09:34 Review of Systems Review of Systems: All systems reviewed & are unremarkable except as noted in HPI and below Constitutional: Constitutional: Denies body ache(s), Denies chills, Denies excessive sweating, Denies fatigue, Denies fever(s), Denies headache(s), Denies lethargy, Denies malaise, Denies weakness and Denies weight loss Eyes: Eyes: Denies blurry vision, Denies change in vision and Denies loss of vision ENT: Denies dizziness, Denies ear discharge, Denies headache(s), Denies lip swelling, Denies epistaxis, Denies nasal congestion, Denies neck pain, Denies throat swelling and Denies tongue swelling Cardiovascular: Cardiovascular: Denies chest pain, Denies chest pain at rest, Denies chest pain with activity, Denies diaphoresis, Denies rapid heart rate, Denies edema, Denies irregular heart rhythm, Denies lightheadedness, Denies palpitations, Denies dyspnea and Denies dyspnea on exertion Respiratory: Respiratory: Denies chest congestion, Denies cough, Denies hemoptysis, Denies dyspnea and Denies dyspnea on exertion Gastrointestinal: Gastrointestinal: Denies abdominal pain, Denies melena, Denies hematochezia, Denies diarrhea, Denies nausea, Denies vomiting and Denies hematemesis Musculoskeletal: Musculoskeletal: Denies abnormal gait, Denies deformity, Denies joint swelling, Denies limited range of motion, Denies neck pain and Denies numbness Neurologic: Denies Abnormal speech present, Denies abnormal gait, Denies confusion, Denies dizziness, Denies focal weakness, Denies loss of vision, Denies numbness, Denies Other visual disturbances, Denies Sensory deficit (Neuro) and Denies weakness Psychiatric: Psychiatric: Denies confusion, Denies depression, Denies auditory hallucinations, Denies homicidal ideation and Denies suicidal ideation Endocrine: Endocrine: Denies cold intolerance, Denies excessive sweating, Denies fatigue, Denies heat intolerance and Denies palpitations Hematologic/Lymphatic: Hematologic/Lymphatic: Denies easy bleeding and Denies easy bruising Allergic/Immunologic: Allergic/Immunologic: Denies lip swelling, Denies throat swelling and Denies tongue swelling PMFSH Past Medical History Medical History Agoraphobia with panic attacks Anxiety disorder, unspecified Benign hypertension with CKD (chronic kidney disease) stage
[2021-02-24] MEDS: HYDROmorphone HCL INJ (*CRX) 1 MG/ML SYR 0.5 MG IM (09:38)
[2021-02-24] MEDS: PROMETHAZINE HCL 25 MG/ML AMPUL IM (09:38)
== END 2021-02-24 11:02 | disposition home or self-care (01) ==
PROVIDERS: Emergency Provider Emergency Medicine; PCP Family Medicine
DX: S01.01XA Laceration without foreign body of scalp, initial encounter (principal); S16.1XXA Strain of muscle, fascia and tendon at neck level, initial encounter; I12.9 Hypertensive chronic kidney disease with stage 1 through stage 4 chronic kidney disease, or unspecified chronic kidney disease; N18.30 Chronic kidney disease, stage 3 unspecified; I73.9 Peripheral vascular disease, unspecified; E78.5 Hyperlipidemia, unspecified; K58.9 Irritable bowel syndrome, unspecified; D50.9 Iron deficiency anemia, unspecified; M81.0 Age-related osteoporosis without current pathological fracture; G62.9 Polyneuropathy, unspecified; Z87.442 Personal history of urinary calculi; Z85.038 Personal history of other malignant neoplasm of large intestine; Z90.49 Acquired absence of other specified parts of digestive tract; Z87.820 Personal history of traumatic brain injury; Z87.891 Personal history of nicotine dependence; W10.9XXA Fall (on) (from) unspecified stairs and steps, initial encounter
CPT/HCPCS: 12002; 70450; 72125; 96372; 99284; J1170; J2550

== ENCOUNTER 2021-03-02 11:11 | Outpatient (CLI) | payer BC, SELFPAY ==
[2021-03-02 11:42] LABS: Creatinine Urine 55.3 mg/dL; Total Protein Urine Random 15 mg/dL; Ur Ttl Prot Creatinine Ratio 0.27 mg/mg (0-0.20)
[2021-03-02 11:46] LABS: Albumin Level 4.3 g/dL (3.5-5.1); Anion Gap 9 mmol/L (8-16); Blood Urea Nitrogen 14 mg/dL (7-17); Calcium 9.6 mg/dL (8.4-10.2); Carbon Dioxide 30 mmol/L (22-30); Chloride 99 mmol/L (98-107); Estimated Glomerular Filt Rate 35; Glucose 133 mg/dL (65-110); Phosphorus 4.3 mg/dL (2.5-4.5); Potassium 3.5 mmol/L (3.4-5.0); Sodium 138 mmol/L (137-145)
== END 2021-03-02 11:12 | disposition home or self-care (01) ==
LOC: ANHLAB 11:15
PROVIDERS: PCP Family Medicine; Visit Provider Internal Medicine Nephrology
DX: I12.9 Hypertensive chronic kidney disease with stage 1 through stage 4 chronic kidney disease, or unspecified chronic kidney disease (principal); N18.32 Chronic kidney disease, stage 3b; R80.8 Other proteinuria
CPT/HCPCS: 36415; 80069; 82570; 84156

== ENCOUNTER 2021-04-13 14:45 | Outpatient (CLI) | payer BC, SELFPAY ==
--- NOTE | ~2021-04-13 | MM_ITS ---
EXAMINATION: MM screening [facility] BI w nataly HISTORY: Screening mammogram TECHNIQUE: Craniocaudal and mediolateral oblique 3-D tomosynthesis images were obtained and synthetic 2-D images were generated. CAD analysis was submitted and interpreted. COMPARISON: 03/10/2020, 02/03/2020 BREAST PARENCHYMAL COMPOSITION: There are scattered areas of fibroglandular density. FINDINGS: A stable asymmetry is present in the left breast on the mediolateral oblique view. There is no evidence of suspicious mass, calcification, or architectural distortion to suggest malignancy in either breast. There has been no suspicious interval change. IMPRESSION: 1. No mammographic evidence of malignancy. 2. Recommend routine screening mammography in one year. BI-RADS Category 2: Benign finding(s). Reviewed, dictated and finalized at location A. E GOODS CLERK
== END 2021-04-13 14:46 | disposition home or self-care (01) ==
PROVIDERS: PCP Family Medicine; Visit Provider Family Medicine
DX: Z12.31 Encounter for screening mammogram for malignant neoplasm of breast (principal)
CPT/HCPCS: 77063; 77067

== ENCOUNTER 2021-05-25 10:10 | Outpatient (CLI) | payer BC, SELFPAY ==
[2021-05-25 10:25] LABS: Basophils Percent Auto 0.4 % (0.2-1.2); Eosinophils Absolute Auto 0.2 K/mm3 (0-0.3); Eosinophils Percent Auto 2.3 % (0-4.4); Hematocrit 45.8 % (37.0-47.0); Hemoglobin 14.5 g/dL (12.0-15.0); Immature Granulocyte Absolute 0.03 K/mm3 (0.00-0.031); Immature Granulocyte Percent A 0.4 % (0-0.5); Lymphocytes Percent Auto 34.1 % (18.3-44.2); Mean Corpuscular HGB Conc 31.7 g/dl (32-36); Mean Corpuscular Hemoglobin 29.1 pg (26-34); Mean Corpuscular Volume 91.8 fl (80-100); Mean Platelet Volume 9.7 fl (7.4-10.4); Monocytes Absolute Auto 0.4 K/mm3 (0.1-0.6); Neutrophils Absolute Auto 4.2 K/mm3 (1.3-6.7); Neutrophils Percent Auto 56.8 % (45.5-73.1); Platelet Count Result 350 k/mm3 (150-375); Red Blood Count 4.99 M/mm3 (4.2-5.4); Red Cell Distribution Width 13.1 % (11.5-14.5); White Blood Count 7.3 K/mm3 (4.5-10.0)
[2021-05-25 10:56] LABS: Alanine Aminotransferase 30 U/L (4-35); Albumin Level 4.4 g/dL (3.5-5.1); Alkaline Phosphatase 189 U/L (38-126); Anion Gap 7 mmol/L (8-16); Aspartate Amino Transferase 44 U/L (14-36); Bilirubin,Total 0.8 mg/dL (0.2-1.3); Blood Urea Nitrogen 13 mg/dL (7-17); Carbon Dioxide 30 mmol/L (22-30); Chloride 100 mmol/L (98-107); Estimated Glomerular Filt Rate 41; Glucose 134 mg/dL (65-110); Potassium 3.5 mmol/L (3.4-5.0); Sodium 137 mmol/L (137-145)
[2021-05-25 11:26] LABS: Blood Urea Nitrogen 12 mg/dL (8-26); Carbon Dioxide 31 mmol/L (22-30); Chloride 97 mmol/L (98-109); Estimated Glomerular Filt Rate 38; Glucose 130 mg/dL (70-105); Potassium 3.6 mmol/L (3.5-4.9); Sodium 139 mmol/L (138-146)
== END 2021-05-25 10:11 | disposition home or self-care (01) ==
LOC: ANHLAB 10:11
PROVIDERS: PCP Family Medicine; Visit Provider Internal Medicine Hematology & Oncology
DX: C18.2 Malignant neoplasm of ascending colon (principal)
CPT/HCPCS: 36415; 80053; 82378; 85025

== ENCOUNTER 2021-06-29 11:26 | Outpatient (CLI) | payer BC, SELFPAY ==
[2021-06-29 11:56] LABS: Anion Gap 10 mmol/L (8-16); Blood Urea Nitrogen 10 mg/dL (7-17); Calcium 8.9 mg/dL (8.4-10.2); Carbon Dioxide 27 mmol/L (22-30); Chloride 104 mmol/L (98-107); Estimated Glomerular Filt Rate 35; Glucose 142 mg/dL (65-110); Phosphorus 3.8 mg/dL (2.5-4.5); Potassium 3.2 mmol/L (3.4-5.0); Sodium 141 mmol/L (137-145)
[2021-06-29 12:03] LABS: Creatinine Urine 58.3 mg/dL; Total Protein Urine Random 14 mg/dL; Ur Ttl Prot Creatinine Ratio 0.24 mg/mg (0-0.20)
[2021-06-29 12:08] LABS: Parathyroid Intact 214.5 pg/mL (7.5-53.5)
[2021-06-29 12:43] LABS: Vitamin D 25 Hydroxy 45.2 ng/mL
== END 2021-06-29 11:27 | disposition home or self-care (01) ==
LOC: ANHLAB 11:28
PROVIDERS: PCP Family Medicine; Visit Provider Internal Medicine Nephrology
DX: I12.9 Hypertensive chronic kidney disease with stage 1 through stage 4 chronic kidney disease, or unspecified chronic kidney disease (principal); N18.32 Chronic kidney disease, stage 3b; R80.8 Other proteinuria; E55.9 Vitamin D deficiency, unspecified
CPT/HCPCS: 36415; 80069; 82306; 82570; 83970; 84156

== ENCOUNTER 2021-11-20 10:36 | Outpatient (CLI) | payer BC, SELFPAY ==
[2021-11-20 10:56] LABS: Basophils Absolute Auto 0.1 K/mm3 (0.0-0.1); Basophils Percent Auto 0.6 % (0.2-1.2); Eosinophils Absolute Auto 0.3 K/mm3 (0-0.3); Eosinophils Percent Auto 3.2 % (0-4.4); Hematocrit 43.1 % (37.0-47.0); Immature Granulocyte Absolute 0.04 K/mm3 (0.00-0.031); Immature Granulocyte Percent A 0.5 % (0-0.5); Lymphocytes Absolute Auto 2.85 K/mm3 (0.9-3.2); Lymphocytes Percent Auto 34.1 % (18.3-44.2); Mean Corpuscular HGB Conc 32.5 g/dl (32-36); Mean Corpuscular Hemoglobin 29.2 pg (26-34); Mean Platelet Volume 9.5 fl (7.4-10.4); Monocytes Absolute Auto 0.6 K/mm3 (0.1-0.6); Monocytes Percent Auto 7.3 % (2.6-8.5); Neutrophils Absolute Auto 4.5 K/mm3 (1.3-6.7); Neutrophils Percent Auto 54.3 % (45.5-73.1); Platelet Count Result 315 k/mm3 (150-375); Red Blood Count 4.79 M/mm3 (4.2-5.4); Red Cell Distribution Width 13.2 % (11.5-14.5); White Blood Count 8.4 K/mm3 (4.5-10.0)
[2021-11-20 11:08] LABS: Alanine Aminotransferase 49 U/L (6-35); Albumin Level 4.3 g/dL (3.5-5.1); Alkaline Phosphatase 166 U/L (38-126); Anion Gap 10 mmol/L (8-16); Aspartate Amino Transferase 47 U/L (14-36); Bilirubin,Total 1.2 mg/dL (0.2-1.3); Blood Urea Nitrogen 10 mg/dL (7-17); Calcium 9.1 mg/dL (8.4-10.2); Carbon Dioxide 31 mmol/L (22-30); Chloride 100 mmol/L (98-107); Estimated Glomerular Filt Rate 38; Glucose 126 mg/dL (65-110); Potassium 3.6 mmol/L (3.4-5.0); Sodium 141 mmol/L (137-145)
[2021-11-20 11:37] LABS: Carcinoembryonic Antigen 2.2 ng/mL (0.0-3.0)
== END 2021-11-20 10:37 | disposition home or self-care (01) ==
PROVIDERS: PCP Family Medicine; Visit Provider Internal Medicine Hematology & Oncology
DX: C18.2 Malignant neoplasm of ascending colon (principal)
CPT/HCPCS: 36415; 80053; 82378; 85025

== ENCOUNTER 2022-02-04 18:39 | Emergency (ER) | payer MEDICARE, SELFPAY ==
--- NOTE | ~2022-02-04 | CT_ITS ---
EXAMINATION: CT abdomen pelvis wo con DATE: 02/04/2022 20:05 INDICATION: pain under R breast, R flank, R lower back, intermittent TECHNIQUE: Computed tomography (CT) of the abdomen and pelvis was performed without intravenous contr ast. Automated exposure control and iterative reconstruction technique were employed. The dose-length product was 649.00 mGy-cm. COMPARISON: 09/13/2020. FINDINGS: Lower thorax: Bibasilar scar/atelectasis. Liver: Enlarged and fatty infiltrated. Biliary/Gallbladder: Cholelithiasis. No bile duct dilation. Pancreas: No mass or duct dilation. Spleen: Normal. Adrenals:No mass. Kidneys: Nonobstructing right midpole calcification. Exophytic left renal cysts. No hydronephrosis GI tract: No small or large bowel dilation. Partial right colon resection, including the appendix. Mesentery/Peritoneum: No ascites, mass, or free air. Retroperitoneum: No mass. Atherosclerotic abdominal aortic and/or arterial calcifications. Pelvis: Decompressed urinary bladder. Absent uterus.. Soft Tissues: Soft tissues and body wall unremarkable. Bones: No acute osseous finding. IMPRESSION: Hepatomegaly and steatosis. Cholelithiasis. No acute abdominopelvic process. Reviewed, dictated and finalized at location K. NS KEEPER
[2022-02-04 18:44] VITALS: BP 146/82; PULSE 108; RESP 18; TEMP 37; O2SAT 94
--- NOTE | 2022-02-04 19:19 | PC.NURSE ---
Report received from MOSES Gross. Assumed care of patient at this time.
[2022-02-04 19:31] LABS: Basophils Percent Auto 0.4 % (0.2-1.2); Eosinophils Absolute Auto 0.3 K/mm3 (0-0.3); Eosinophils Percent Auto 2.7 % (0-4.4); Hematocrit 41.3 % (37.0-47.0); Hemoglobin 13.9 g/dL (12.0-15.0); Immature Granulocyte Absolute 0.04 K/mm3 (0.00-0.031); Immature Granulocyte Percent A 0.4 % (0-0.5); Lymphocytes Absolute Auto 3.61 K/mm3 (0.9-3.2); Lymphocytes Percent Auto 39.1 % (18.3-44.2); Mean Corpuscular HGB Conc 33.7 g/dl (32-36); Mean Corpuscular Volume 89.2 fl (80-100); Monocytes Absolute Auto 0.6 K/mm3 (0.1-0.6); Monocytes Percent Auto 6.9 % (2.6-8.5); Neutrophils Absolute Auto 4.7 K/mm3 (1.3-6.7); Neutrophils Percent Auto 50.5 % (45.5-73.1); Platelet Count Result 309 k/mm3 (150-375); Red Blood Count 4.63 M/mm3 (4.2-5.4); Red Cell Distribution Width 12.7 % (11.5-14.5); White Blood Count 9.2 K/mm3 (4.5-10.0)
[2022-02-04 19:41] LABS: Alanine Aminotransferase 31 U/L (6-35); Albumin Level 4.2 g/dL (3.5-5.1); Alkaline Phosphatase 162 U/L (38-126); Anion Gap 6 mmol/L (8-16); Aspartate Amino Transferase 35 U/L (14-36); Bilirubin,Total 0.9 mg/dL (0.2-1.3); Blood Urea Nitrogen 17 mg/dL (7-17); Calcium 9.4 mg/dL (8.4-10.2); Carbon Dioxide 33 mmol/L (22-30); Chloride 99 mmol/L (98-107); Estimated CRCL calculation 33 ml/min; Estimated Glomerular Filt Rate 35; Glucose 132 mg/dL (65-110); Lipase 67 U/L (23-300); Potassium 3.5 mmol/L (3.4-5.0); Sodium 138 mmol/L (137-145)
--- NOTE | 2022-02-04 19:45 | ED.ABDPAIN ---
HPI - Abdominal Pain General Chief Complaint: Abdominal Pain Stated Complaint: abd pain Time Seen by Provider: 02/04/22 19:29 History of Present Illness HPI narrative: 66-year-old female presenting to the emergency department for evaluation of right flank pain. Patient states she has been having the right flank pain intermittently over the course of the last month. Patient states does not occur when eating but does occur with ambulation. Patient states when it does occur it lasts approximately 30 minutes. Patient states pain has been more significant today. Patient does take a number of medications for chronic pain control. Patient reports back in 2000 she did have a history of kidney stones. Patient states that she also has a history of colon cancer and follows up with Dr. Kumar. Patient reports she has been in remission from a colon cancer 2 years. Patient does have a past medical history of bladder spasms, constipation, anemia, high cholesterol, colon cancer. Related Data Home Medications Medication Instructions Recorded Confirmed cholecalciferol (vitamin D3) 50 50 mcg PO DAILY 09/12/19 11/02/21 mcg (2,000 unit) tablet multivit with 1 tablet PO DAILY 01/04/20 11/02/21 [id number] 8 mg iron-400 mcg-300 mcg tablet (Centrum Silver Women) albuterol sulfate 90 mcg/actuation 2 inhalation inhalation Q4H PRN 06/12/20 11/02/21 aerosol inhaler (ProAir HFA) shortness of breath or wheezing bumetanide 1 mg tablet 1 mg PO TID 08/09/20 11/02/21 simethicone 125 mg capsule (Gas-X 125 mg PO DAILY PRN Acid Reflux 08/09/20 11/02/21 Extra Strength) Saccharomyces boulardii 250 mg 250 mg PO DAILY 11/10/20 11/02/21 capsule (Florastor) Allergies Allergy/AdvReac Type Severity Reaction Status Date / Time levofloxacin Allergy Severe Hallucinati Verified 11/02/21 10:17 ons Penicillins Allergy Severe HIVES Verified 11/02/21 10:17 A CHILD aspirin Allergy Mild ITCHING, Verified 11/02/21 10:17 GI UPSET clindamycin AdvReac Intermediate Diarrhea Verified 02/04/22 19:46 carisoprodol AdvReac Mild Gastrointestinal Verified 11/02/21 10:17 Upset salicylates AdvReac Mild GI UPSET Verified 11/02/21 10:17 Review of Systems Review of Systems: CONSTITUTIONAL: Denies fever, chills, or sweats. EYES: Denies visual changes, redness, or discharge. ENT: Denies rhinorrhea, congestion, sore throat, or otalgia. CARDIOVASCULAR: Denies chest pain, palpitations, or edema. RESPIRATORY: Denies cough or dyspnea. GASTROINTESTINAL: See HPI GENITOURINARY: Denies dysuria or hematuria. SKIN: Denies rash or itching. MUSCULOSKELETAL: Denies back pain, joint pain, or myalgia. NEUROLOGIC: Denies headache, numbness, or weakness. [facility] Past Medical History Medical History (Updated 02/05/22 @ 00:00 by Background Daemon) Agoraphobia with panic attacks Anxiety disorder, unspecified Ataxia Benign hypertension with CKD (chronic kidney disease) stage III Benign positional vertigo Bladder spasm BMI 25.0-25.9,adult BMI 26.0-26.9,adult BMI 27.0-27.9,adult Cholelithiasis Chronic back pain Chronic diarrhea Chronic kidney disease, stage III (moderate) Colon cancer (12/2019) Adenocarcinoma stage IIA with right hemicolectomy DDD (degenerative disc disease) Degenerative cervical disc Depression Depression with anxiety Diastolic dysfunction Noted on echocardiogram from 2017 with preserved ejection fraction Essential (primary) hypertension Forgetfulness HTN (hypertension) Hyperlipidemia IBS (irritable bowel syndrome) Iron deficiency anemia Kidney mass Left knee sprain Lumbar degenerative disc disease Murmur Benign flow murmur Nephrolithiasis Right side x2 Osteoporosis Peripheral neuropathy PVD (peripheral vascular disease) Screening mammogram for breast cancer Traumatic brain injury Surgical History Surgical History H/O colonoscopy with polypectomy H/O lithot
--- NOTE | 2022-02-04 19:58 | PC.NURSE ---
Patient in CT at this time.
[2022-02-04 20:05] LABS: Add Urine Microscopic? YES; Appearance Urine Slightly Cloudy (Clear); Bilirubin Urine Negative (Negative); Blood Urine Negative (Negative); Color Urine Light Yellow (Yellow); Glucose Urine UA Negative (Negative); Ketones Urine Negative (Negative); Leukocyte Esterase Ur Trace LEU/UL (Negative); Nitrate Urine Negative (Negative); Protein Urine Negative (Negative); Specific Grav Ur 1.025 (1.001-1.035); Urobilinogen Urine 0.2 mg/dL (<2.0)
[2022-02-04] MEDS: SODIUM CHLORIDE 0.9% IV 1,000 ML 999 ML IV CONT (20:08)
[2022-02-04] MEDS: HYDROmorphone HCL INJ (*CRX) 1 MG/ML SYR IV PUSH (20:09)
[2022-02-04 20:13] LABS: Calcium Oxalate Crystals Urine Present /hpf; Mucus Urine Rare /lpf; Squamous Epithelial Cell Urine Few /hpf (Few)
[2022-02-04 20:30] VITALS: TEMP 37
[2022-02-04 22:26] VITALS: PULSE 86; RESP 20; O2SAT 97
[2022-02-04 23:00] VITALS: BP 140/77; PULSE 88; RESP 18; O2SAT 98
== END 2022-02-04 23:37 | disposition home or self-care (01) ==
PROVIDERS: Emergency Provider Emergency Medicine; PCP Family Medicine
DX: R07.81 Pleurodynia (principal); F40.01 Agoraphobia with panic disorder; I12.9 Hypertensive chronic kidney disease with stage 1 through stage 4 chronic kidney disease, or unspecified chronic kidney disease; N18.30 Chronic kidney disease, stage 3 unspecified; Z85.038 Personal history of other malignant neoplasm of large intestine; F32.9 Major depressive disorder, single episode, unspecified
CPT/HCPCS: 36415; 74176; 80053; 81001; 83690; 85025; 96361; 96374; 99284; J1170; J7030

== ENCOUNTER 2022-04-13 12:22 | Outpatient (CLI) | payer MEDICARE, SELFPAY ==
--- NOTE | ~2022-04-13 | XR_ITS ---
EXAMINATION: XR chest 2V DATE: 04/13/2022 12:50 INDICATION: Bronchitis, not specified as acute or chronic. TECHNIQUE: Frontal and lateral views of the chest were obtained. COMPARISON: Chest single view 06/12/2020, CT abdomen and pelvis 02/04/2022 FINDINGS: There is no pneumonia, effusion, or pneumothorax. The heart size is normal. IMPRESSION: 1. No acute cardiopulmonary disease. Reviewed, dictated and finalized at location A. UCE RUNNER
== END 2022-04-13 12:23 | disposition home or self-care (01) ==
PROVIDERS: PCP Family Medicine; Visit Provider Nurse Practitioner Family
DX: J40 Bronchitis, not specified as acute or chronic (principal)
CPT/HCPCS: 71046